=== PATIENT | male | born 1950 | race Caucasian/White ===

== ENCOUNTER 2017-10-30 04:11 | Inpatient (IN) | payer MEDICARE, OTHER, SELFPAY ==
[2017-10-30] VITALS (40 sets, daily range): BP systolic 72–125; BP diastolic 38–60; PULSE 54–100; RESP 10–25; TEMP 35.1–36.8; O2SAT 94–100; BMI 30.2
--- NOTE | 2017-10-30 04:16 | DI.RAD.S_ITS ---
PROCEDURE: XR CHEST 1V INDICATIONS: Pneumonia TECHNIQUE: One view of the chest was acquired. COMPARISON: [facility], CHEST 1 VIEW, 04/22/2017, 13:43. [facility], CHEST 2 VIEW, 02/02/2015, 17:20. [facility], , CHEST 1 VIEW, 08/18/2009, 12:59. FINDINGS: Surgical changes and devices: Spinal fixation devices appear free of disruption abnormal, with interstitial prominence and no focal pneumonia. Inspiratory volume on the right is reduced, previously the case over time. Lungs and pleura: No pleural effusions or pneumothorax. Lungs are clear. Mediastinum: Mediastinal contours appear normal. Heart size is normal. Bones and chest wall: No suspicious bony lesions. Overlying soft tissues appear unremarkable. IMPRESSION: Interstitial prominence, asymmetric elevation of the right hemidiaphragm, no definite focal pulmonary consolidation is found at this time. Quality of visualization but high in the right diaphragm is very limited, however. Lateral view chest may be warranted. Dictated by: True Colunga M.D. on 10/30/2017 at 9:01 Approved by: True Colunga M.D. on 10/30/2017 at 9:02
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
[2017-10-30] MEDS: SODIUM CHLORIDE 0.9% 1065.94 ML IV (04:54)
[2017-10-30] MEDS: levoFLOXacin 750 MG/150 ML PIGGYBACK 100 MG IV (04:55)
[2017-10-30 05:10] LABS: Add Manual Diff / Slide Review NO; Basophils Percent Auto 0.4 % (0-2); Hematocrit 25.3 % (41-53); Hemoglobin 8.1 g/dL (13.5-17.5); Lymphocytes Percent Auto 2.7 % (25-40); Mean Corpuscular HGB Conc 31.9 % (30-36); Mean Corpuscular Hemoglobin 29.2 PG (26-34); Mean Corpuscular Volume 91.4 fL (80-100); Monocytes Percent Auto 4.4 % (3-14); Neutrophils Absolute Auto 20600 /uL (3000-5900); Neutrophils Percent Auto 92.5 % (50-75); Platelet Count 331 X10^3/uL (150-400); Red Blood Cell Count 2.77 X10^6/uL (4.5-5.9); Red Cell Distribution Width 16.3 % (11.6-14.8); White Blood Cell Count 22.3 X10^3/uL (4.5-11.0)
[2017-10-30 05:12] LABS: Lactate (Lactic Acid) 1.6 mmol/L (0.7-2.1)
[2017-10-30 05:21] LABS: BUN Creatinine Ratio 19.2 (6-22); Blood Urea Nitrogen 25 mg/dL (9-20); Calcium 8.6 mg/dL (8.4-10.2); Carbon Dioxide 25 mmol/L (22-32); Chloride 102 mmol/L (98-107); Estimated Glomerular Filt Rate 54.9 mL/min (>60); Glucose 223 mg/dL (80-110); HEMOLYSIS < 15 (0-50); Sodium 140 mmol/L (137-145)
[2017-10-30 05:23] LABS: Potassium 5.1 mmol/L (3.4-5.1)
--- NOTE | 2017-10-30 06:01 | PC.NURSE ---
THE FIRST BAG OF NS WAS PLACED IN PRESSURE BAG AND BOLUSED QUICKLY PER DR BLOCK VERBAL ORDER.THIS WAS DUE TO HIS BLOOD PRESSURE.
[2017-10-30 06:10] LABS: Procalcitonin 0.94 ng/mL (<0.5)
--- NOTE | 2017-10-30 07:03 | PC.ADMIT ---
Addendum entered by Gracia Conde R.N. 10/30/17 07:15: Report to oncoming shift RN, Fadi. Original Note: [address] Admission Note: The patient,Brent Taylor,67 y/o, was given written information regarding hospital policies, unit procedures and contact persons. Patient's smoking status: . Vital Signs - 8 hr 10/30/17 04:15 10/30/17 04:29 10/30/17 05:00 Temperature 98.2 F Pulse Rate 100 H 100 H 97 H Respiratory Rate 18 18 17 Blood Pressure 90/50 L Blood Pressure [Right Arm] 90/50 L 91/49 L Pulse Oximetry 94 96 94 10/30/17 05:12 10/30/17 05:15 10/30/17 06:01 Temperature Pulse Rate 98 H 97 H 84 Respiratory Rate 18 17 18 Blood Pressure Blood Pressure [Right Arm] 91/45 L 82/53 L 80/48 L Pulse Oximetry 94 95 96 10/30/17 06:12 10/30/17 06:36 10/30/17 07:01 Temperature Pulse Rate 80 85 75 Respiratory Rate 20 14 Blood Pressure 111/60 99/40 L Blood Pressure [Right Arm] 87/53 L Pulse Oximetry 98 98 95 Pt arrived to room 104 from ER via stretcher at 0645. Pt is obtunded. VSS, afebrile. Sp02 99% 1LNC. IVF bolus infusing from ER.
[2017-10-30] MEDS: SODIUM CHLORIDE 0.9% 500 ML 1000 ML IV ×2 (08:00→08:24)
[2017-10-30] MEDS: SODIUM CHLORIDE 0.9% 1,000 ML 150 ML IV ×2 (08:57→15:37)
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
[2017-10-30] MEDS: PIPERACILLIN-TAZO 4.5 GM/100 ML FROZ.PIGGY IV ×3 (09:17→20:13)
--- NOTE | 2017-10-30 09:28 | CM.DANOTE ---
Addendum entered by Lary Shaffre LPN 10/30/17 12:02: Introduced self and role. Pt unable to be part of the conversation due to ongoing medical needs/RN and RT working with him. Pt is a 67 year old paraplegic who admitted yesterday to care of hospitalist team. Payer: listed as Medicare and [employer]. Pt also is under care of [facility] and gets his primary care from a physician at the [facility]. [facility] has been alerted to sort out insurance primary billing: ? [facility] Hospitalist Dr. Saldivar is following pt today and case discussed in Care Team morning meeting. Asked it a transfer to the [facility] hospital might be appropriate but he stated he did not think with would be a viable option at this time. Assured pt's [place]: cell: [phone] that the CM/DCP team would be following as POC unfolded to assist with d/c issues and options as these arrive. P: very much in process. Original Note: Discharge Planning/Care Management DCP: assessment: case received and met this morning with pt's spouse. CM Discharge Assessment Start: 10/30/17 09:22 Freq: Status: Active Protocol: Document 10/30/17 09:23 ITV (Rec: 10/30/17 09:28 ITV [id number]) Discharge Planning Assessment History Provided By Family Member Medical Record Has Patient been admitted in last 30 No days? Comment last here in Apr 2017: at that time pt wished to have his stay billed to [facility]. [facility] are alerted to same now by [employer] for followup Household Members spouse Comment spouse has been primary caregiver for her for 7 years Independent with ADL's No Comment elio lifts + all other needed DME at home Review Status In Process Next Review Type Continued Stay Review
[2017-10-30 09:37] LABS: Alanine Aminotransferase 13 IU/L (21-72); Albumin 3.5 g/dL (3.5-5.0); Albumin Globulin Ratio 0.8 (1.0-2.8); Alkaline Phosphatase 86 U/L (38-126); Aspartate Aminotransferase 58 IU/L (17-59); Bilirubin Total 0.4 mg/dL (0.2-1.3); Blood Urea Nitrogen 26 mg/dL (9-20); Calcium 8.6 mg/dL (8.4-10.2); Carbon Dioxide 24 mmol/L (22-32); Chloride 104 mmol/L (98-107); Estimated Glomerular Filt Rate 54.9 mL/min (>60); Globulin 4.3 g/dL (1.7-4.1); Glucose 221 mg/dL (80-110); HEMOLYSIS < 15 (0-50); Magnesium 2.1 mg/dL (1.6-2.3); Phosphorous 5.8 mg/dL (2.3-3.7); Potassium 5.1 mmol/L (3.4-5.1); Sodium 139 mmol/L (137-145); Total Protein 7.8 g/dL (6.3-8.2)
[2017-10-30] MEDS: VANCOMYCIN 1,000 MG/200 ML FROZ.PIGGY 200 MG IV ×2 (09:51→21:46)
[2017-10-30 09:56] LABS: C-Reactive Protein Quant 19.6 mg/dL (<1.0)
[2017-10-30 10:05] LABS: HCO3 ABG 23 mmol/L (23-27); Oxygen Saturation ABG 98 % (95-100); PCO2 ABG 69.6 mmHg (35-45); PO2 ABG 152 mmHg (80-105); TCO2 ABG 25 mmol/L (23-27); pH ABG 7.13 (7.35-7.45)
[2017-10-30 10:06] LABS: Fractionated Inspired Oxygen 3
[2017-10-30] MEDS: ENOXAPARIN 30 MG/0.3 ML SYRINGE SUBCUT (10:06)
--- NOTE | 2017-10-30 10:11 | PC.ADMIT ---
Admission Note: Pt to rm 104 from ED at shift change. Assumed care at 0730. Pt is resting in bed with eyes closed mouth breathing with RR even, shallow and bradypneic with rates 10-14. SPO2 is noted to be 92-93% on 1L NC. Titrated O2 up to 4L NC for SPO2 The patient,Brent Taylor,67 y/o, was given written information regarding hospital policies, unit procedures and contact persons. Patient's smoking status: . Vital Signs - 8 hr 10/30/17 04:15 10/30/17 04:29 10/30/17 05:00 Temperature 98.2 F Pulse Rate 100 H 100 H 97 H Respiratory Rate 18 18 17 Blood Pressure 90/50 L Blood Pressure [Right Arm] 90/50 L 91/49 L Pulse Oximetry 94 96 94 10/30/17 05:12 10/30/17 05:15 10/30/17 06:01 Temperature Pulse Rate 98 H 97 H 84 Respiratory Rate 18 17 18 Blood Pressure Blood Pressure [Right Arm] 91/45 L 82/53 L 80/48 L Pulse Oximetry 94 95 96 10/30/17 06:12 10/30/17 06:36 10/30/17 07:01 Temperature 97.9 F Pulse Rate 80 85 75 Respiratory Rate 20 14 Blood Pressure 111/60 99/40 L Blood Pressure [Right Arm] 87/53 L Pulse Oximetry 98 98 95 10/30/17 07:17 10/30/17 08:12 Temperature Pulse Rate 64 Respiratory Rate 12 Blood Pressure 72/38 L Blood Pressure [Right Arm] Pulse Oximetry 99 100
--- NOTE | 2017-10-30 10:32 | DI.RAD.S_ITS ---
PROCEDURE: XR CHEST 1V INDICATIONS: PICC line placement TECHNIQUE: One view of the chest was acquired. COMPARISON: [facility], [place], XR CHEST 1V, 10/30/2017, 4:20. [facility], CR, CHEST 1 VIEW, 04/22/2017, 13:43. [facility], CR, CHEST 2 VIEW, 02/02/2015, 17:20. FINDINGS: Surgical changes and devices: Prior extensive spine fusion surgery has been performed along the thoracic spine, involving the upper and middle thirds. PICC line from right sided approach has been placed with its tip extending in the distal SVC.. Lungs and pleura: No pleural effusions or pneumothorax. Lungs are abnormal, with interstitial prominence previously present and mild asymmetric elevation of the right hemidiaphragm.. Mediastinum: Mediastinal contours appear normal. Heart size is normal. Bones and chest wall: No suspicious bony lesions. Overlying soft tissues appear unremarkable. IMPRESSION: PICC line placed in normal position. Stable chronic mild interstitial prominence with mild elevation of the right hemidiaphragm also stable over time. Stable postsurgical change along the spine is noted. Dictated by: True Colunga M.D. on 10/30/2017 at 10:58 Approved by: True Colunga M.D. on 10/30/2017 at 10:59
[2017-10-30 10:50] LABS: Adenovirus Not Detected (Not Detect); Bordetella pertussis Not Detected (Not Detect); Chlamydophila pneumoniae Not Detected (Not Detect); Coronavirus 229E Not Detected (Not Detect); Coronavirus HKU1 Not Detected (Not Detect); Coronavirus NL 63 Not Detected (Not Detect); Coronavirus OC43 Not Detected (Not Detect); Human Metapneumovirus Not Detected (Not Detect); Human Rhinovirus/Enterovirus Not Detected (Not Detect); Influenza A Not Detected (Not Detect); Influenza B Not Detected (Not Detect); Mycoplasma pneumoniae Not Detected (Not Detect); Parainfluenza Virus 1 Not Detected (Not Detect); Parainfluenza Virus 2 Not Detected (Not Detect); Parainfluenza Virus 3 Not Detected (Not Detect); Parainfluenza Virus 4 Not Detected (Not Detect); Respiratory Syncytial Virus Not Detected (Not Detect)
[2017-10-30] MEDS: PANTOPRAZOLE 40 MG VIAL IV (10:57)
[2017-10-30 11:07] LABS: Add Manual Diff / Slide Review NO; Basophils Percent Auto 0.1 % (0-2); Hematocrit 23.6 % (41-53); Hemoglobin 7.4 g/dL (13.5-17.5); Lymphocytes Percent Auto 6.5 % (25-40); Mean Corpuscular HGB Conc 31.4 % (30-36); Mean Corpuscular Hemoglobin 29.1 PG (26-34); Mean Corpuscular Volume 92.7 fL (80-100); Neutrophils Absolute Auto 11400 /uL (3000-5900); Neutrophils Percent Auto 88.4 % (50-75); Platelet Count 232 X10^3/uL (150-400); Red Blood Cell Count 2.55 X10^6/uL (4.5-5.9); Red Cell Distribution Width 16.5 % (11.6-14.8); White Blood Cell Count 12.9 X10^3/uL (4.5-11.0)
[2017-10-30 11:18] LABS: Lactate (Lactic Acid) 1.1 mmol/L (0.7-2.1)
--- NOTE | 2017-10-30 11:56 | PC.NURSE ---
Addendum entered by Fadi Lorenz R.N. 10/30/17 14:42: Obtaining temperature via rectal probe for continuous monitoring. Due to limitation by [employer], unable to enter temperatures. Pt temp initally 93.9 at 0800. Temp has increased to 95.5 rectally over the course of the day and with use of nilson hugger. Original Note: Addendum entered by Fadi Lorenz R.N. 10/30/17 13:32: Pt placed on bipap 1330 per MD order. Asked if she could bring pt's own cpap from home. She agrees. Original Note: Assumed care of pt 0715. Pt noted with pallor, hypotension, bradypnea. Lungs course throughout. Initially on 1L NC by mouth and needing upward titration to 4LPM to keep SPO2 greater than 93%. Unable to obtain temp axillary, oral, or temporal. Placed rectal probe for continuous monitoring. 0800 noted BP to be 77/36 (51) HR 67 RR 11 and rectal temp 93.9. Pt grimaces to noxious stimuli but does not open eyes or follow commands. Called to hospitalist and rec'd orders for 2 add'l 500 ML NS Boluses and then NS @ 150 ML/HR. Attempted to place PIV x2 but unsuccessful. Covered pt with heated blankets. is at bedside. She states that pt historically has temps of 94.0 after acute infections. Reported to Dr. Campos on rounds at 0830. Reported VS, labs, IV access, IVFs, chronic pope, assessment findings. Orders received and implemented. updated and educated to orders. 0900 RT to bedside obtaining ABG. ABG results called to Dr. Campos by this nurse. Orders received to place pt on bipap and obtain ABG in 2 hours. RT suctioned pt with minimal secretions and resp panel obtained. Pt is waking up. Soft spoken clear speech. States he is at the hospital in [place], unsure of date/time, states year 2018. Oriented to situation. DI nurse in to place PICC line. CXR done confirming placement. Pt states he is very claustrophobic and would not tolerate bipap. Pt is progressively more awake/alert and conversing with family and friends. AO x3. Bipap not placed. RT obtained ABG and RT states will notify Dr. Campos of results.
[2017-10-30 12:05] LABS: pH ABG 7.27 (7.35-7.45)
[2017-10-30 12:07] LABS: HCO3 ABG 23 mmol/L (23-27); Oxygen Saturation ABG 96 % (95-100); PCO2 ABG 49.5 mmHg (35-45); PO2 ABG 95 mmHg (80-105); TCO2 ABG 24 mmol/L (23-27)
[2017-10-30 12:26] LABS: Fractionated Inspired Oxygen 1
[2017-10-30] MEDS: HYDROCORTISONE 100 MG/2 ML VIAL IV (12:33)
[2017-10-30] MEDS: INSULIN ASPART 100 UNIT/ML INSULN PEN SUBCUT ×2 (12:33→18:36)
--- NOTE | 2017-10-30 18:05 | PC.NURSE ---
Addendum entered by Monalisa Sheldon R.N. 10/30/17 21:06: 2100 - Pt assist pt to use cough assist. Moderate amount of cream color sputum. Assist pt with oral care. Pt declines being repositioned at this time. Original Note: Addendum entered by Monalisa Sheldon R.N. 10/30/17 19:58: 1930 - Transfer to pressure relief bed. Pt awake, alert, able to participate in care. Temp 98.2, rectal, declines to have bearhugger removed. Set to low. potline monitor, SR/SB 1 degree AVB. Pt assist with cough assist machine. Jorgensen sputum, anterior coarse LS persist. 98% on 2.5L. Veloz draining yellow urine with sedament. Call light in reach. Original Note: Addendum entered by Monalisa Sheldon R.N. 10/30/17 18:25: 1810 - Pt requesting to be taken off Bi-pap, Placed on 3L NC. Pt assisted pt with home cough assist machine, Sputum sample obtained, sent to lab per MD order. Original Note: Pt able to indicate discomfort. Repositioned. Confirmed with Real Estate Subagent that special mattress has been ordered. Awaiting delivery. Pt able to nod head yes and no to questions. Pulled arms out of the bearhugger. Indicated that he would like it turned down, but not off. Turned to low setting. Rectal temp 97.7. Skin warm to touch. Hypotension monitor. MAP continues to be >65. NS @ 150cc/hr. 50cc of urine out this hour. Supportive at bedside. Monitor.
[2017-10-31] VITALS (20 sets, daily range): BP systolic 119–155; BP diastolic 54–111; PULSE 43–61; RESP 11–16; TEMP 36.7–37; O2SAT 95–100
[2017-10-31] MEDS: HYDROCORTISONE 100 MG/2 ML VIAL IV (00:03)
[2017-10-31] MEDS: SODIUM CHLORIDE 0.9% 1,000 ML 150 ML IV ×2 (00:03→07:17)
[2017-10-31] MEDS: PIPERACILLIN-TAZO 4.5 GM/100 ML FROZ.PIGGY IV ×4 (02:26→20:15)
[2017-10-31 05:28] LABS: Add Manual Diff / Slide Review NO; Basophils Percent Auto 0.1 % (0-2); Hematocrit 23.8 % (41-53); Hemoglobin 7.7 g/dL (13.5-17.5); Lymphocytes Percent Auto 6.5 % (25-40); Mean Corpuscular HGB Conc 32.1 % (30-36); Mean Corpuscular Hemoglobin 29.1 PG (26-34); Mean Corpuscular Volume 90.6 fL (80-100); Monocytes Percent Auto 3.2 % (3-14); Neutrophils Absolute Auto 10700 /uL (3000-5900); Neutrophils Percent Auto 90.2 % (50-75); Platelet Count 233 X10^3/uL (150-400); Red Blood Cell Count 2.63 X10^6/uL (4.5-5.9); Red Cell Distribution Width 16.3 % (11.6-14.8); White Blood Cell Count 11.9 X10^3/uL (4.5-11.0)
[2017-10-31 05:32] LABS: Alanine Aminotransferase 11 IU/L (21-72); Albumin 2.9 g/dL (3.5-5.0); Albumin Globulin Ratio 0.8 (1.0-2.8); Alkaline Phosphatase 69 U/L (38-126); Aspartate Aminotransferase 22 IU/L (17-59); BUN Creatinine Ratio 20.9 (6-22); Bilirubin Total 0.2 mg/dL (0.2-1.3); Blood Urea Nitrogen 23 mg/dL (9-20); Calcium 8.3 mg/dL (8.4-10.2); Carbon Dioxide 23 mmol/L (22-32); Chloride 109 mmol/L (98-107); Estimated Glomerular Filt Rate > 60.0 mL/min (>60); Globulin 3.8 g/dL (1.7-4.1); Glucose 112 mg/dL (80-110); HEMOLYSIS < 15 (0-50); Magnesium 1.9 mg/dL (1.6-2.3); Potassium 4.5 mmol/L (3.4-5.1); Sodium 141 mmol/L (137-145); Total Protein 6.7 g/dL (6.3-8.2)
[2017-10-31 05:43] LABS: Troponin I 0.024 ng/mL (0.01-0.034)
--- NOTE | 2017-10-31 06:36 | PC.NURSE ---
Patient slept throughout night, rouses during care, answers questions and participates. In rotating bed, BareHugger on, Rectal temp 98.1. SB, rate 40s-50s, BP stable, see vital trends. SpO2 >95% on 2.5L NC. Breath sounds coarse. Total UOP 275ml, urine is yellow with sediment. CBGs 101 and 112, no coverage indicated. NS at 150ml/hr. in room, also rested.
[2017-10-31] MEDS: ALBUTEROL/IPRATROPIUM 3 ML AMPUL INH ×2 (08:45→16:25)
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
[2017-10-31] MEDS: PANTOPRAZOLE 40 MG VIAL IV (09:00)
--- NOTE | 2017-10-31 09:06 | CM.DPC ---
DCP Cont: Introduced self and role to , as patient was sleeping. Offered any support that she might need. She is primary caregiver. Patient remains in ICU at this time, due to medical necessity P: Plan in process, continue to communicate with regarding support systems when discharged. Shawna Rand RN/Graphic Production Artist
[2017-10-31] MEDS: ENOXAPARIN 40 MG/0.4 ML SYRINGE SUBCUT (09:51)
[2017-10-31] MEDS: VANCOMYCIN 1,000 MG/200 ML FROZ.PIGGY 200 MG IV ×2 (09:56→22:38)
[2017-10-31] MEDS: HYDROCORTISONE 100 MG/2 ML VIAL 50 MG IV (12:15)
[2017-10-31 12:24] LABS: Folate 12.4 ng/mL (2.76-20.0); Vitamin B12 454 pg/mL (239-931)
--- NOTE | 2017-10-31 14:26 | PC.NURSE ---
pt transferred to room 224, report given to Sumaya NYE, patient and spouse state they have all personal belongings with them, pt VSS, please see charting for full assessment
--- NOTE | 2017-10-31 14:34 | PC.NURSE ---
TSF - brought to room 224 via special bed, pt is alert, denies discomfort, 02 sat 3l 100%, decr to 2l now with sat remaining upper 90's, pope w/small qty urine in tubing, hr 48, wearing own heel protectors, per pt and spouse, prefer to bear hugger for comfort, delivered from icu and connected, setting 33C, belongings and own wc are in room.
[2017-10-31] MEDS: INSULIN ASPART 100 UNIT/ML INSULN PEN SUBCUT ×2 (17:09→21:54)
[2017-10-31] MEDS: BISACODYL 10 MG SUPP PR (20:01)
[2017-10-31] MEDS: SODIUM CHLORIDE 0.9% 250 ML 21 ML IV ×2 (20:17→22:42)
[2017-10-31] MEDS: VANCOMYCIN TROUGH 1 REQUEST MISC (21:32)
[2017-10-31] MEDS: INSULIN GLARGINE 100 UNIT/ML 3ML PEN 30 UNIT SUBCUT (21:54)
[2017-10-31] MEDS: clonazePAM 0.5 MG TABLET PO (22:01)
[2017-10-31] MEDS: TRAZODONE 100 MG TABLET PO (22:01)
[2017-10-31] MEDS: MORPHINE ER 30 MG TABLET PO (22:01)
[2017-10-31 22:21] LABS: Vancomycin Trough 17.4 ug/mL (10-20)
[2017-11-01] VITALS (12 sets, daily range): BP systolic 136–145; BP diastolic 54–70; PULSE 40–68; RESP 13–19; TEMP 36.2–36.8; O2SAT 92–100
--- NOTE | 2017-11-01 | DI.RAD.S_ITS ---
PROCEDURE: XR CHEST 1V INDICATIONS: f/u on PNA TECHNIQUE: One view of the chest was acquired. COMPARISON: [facility], CR, XR CHEST 1V, 10/30/2017, 10:43. FINDINGS: Surgical changes and devices: Right upper extremity PIC line redemonstrated with the tip in the superior vena cava. Postsurgical changes are again noted in the upper thoracic spine. Lungs and pleura: There are persistent small bilateral pleural effusions. Persistent bilateral airspace opacities are redemonstrated in the lung bases with interval increase on the right suggestive of consolidation versus atelectasis. There is mild pulmonary edema. Mediastinum: Mediastinal contours appear unchanged. Heart size is normal. Bones and chest wall: No suspicious bony lesions. Overlying soft tissues appear unremarkable. IMPRESSION: 1. Increased right basilar consolidation or atelectasis. 2. Persistent small bilateral pleural effusions with mild pulmonary edema. Dictated by: Jake Romero M.D. on 11/01/2017 at 11:44 Approved by: Jake Romero M.D. on 11/01/2017 at 11:46
--- NOTE | 2017-11-01 00:16 | PC.NURSE ---
Spot Remover Note: 0000: Awake, resting in bed with HOB elevated. Alert, oriented X3. Juanito Mata on per his request. Veloz catheter patent, urine is clear jena. PICC in place in rt upper arm. resting at bedside.
[2017-11-01] MEDS: HYDROCORTISONE 100 MG/2 ML VIAL 50 MG IV (00:29)
[2017-11-01] MEDS: PIPERACILLIN-TAZO 4.5 GM/100 ML FROZ.PIGGY IV ×4 (02:15→21:45)
[2017-11-01] MEDS: ALBUTEROL/IPRATROPIUM 3 ML AMPUL INH ×3 (05:32→19:36)
[2017-11-01] MEDS: MORPHINE ER 30 MG TABLET PO ×3 (05:59→21:46)
[2017-11-01] MEDS: SODIUM CHLORIDE 0.9% FLUSH 10 ML IV ×3 (06:00→21:46)
[2017-11-01] MEDS: INSULIN ASPART 100 UNIT/ML INSULN PEN SUBCUT ×2 (08:26→12:19)
[2017-11-01 09:04] LABS: Add Manual Diff / Slide Review NO; Basophils Percent Auto 0.2 % (0-2); Eosinophils Percent Auto 0.1 % (2-4); Hematocrit 23.1 % (41-53); Hemoglobin 7.6 g/dL (13.5-17.5); Lymphocytes Percent Auto 9.6 % (25-40); Mean Corpuscular HGB Conc 32.9 % (30-36); Mean Corpuscular Hemoglobin 29.5 PG (26-34); Mean Corpuscular Volume 89.7 fL (80-100); Monocytes Percent Auto 5.5 % (3-14); Neutrophils Absolute Auto 5800 /uL (3000-5900); Neutrophils Percent Auto 84.6 % (50-75); Platelet Count 226 X10^3/uL (150-400); Red Blood Cell Count 2.57 X10^6/uL (4.5-5.9); Red Cell Distribution Width 16.1 % (11.6-14.8); White Blood Cell Count 6.8 X10^3/uL (4.5-11.0)
[2017-11-01 09:10] LABS: Enterococcus species Not Detected (Not Detect); Listeria monocytogenes Not Detected (Not Detect); Methicillin-resistant gene Not Detected (Not Detect); Staphylococcus species Not Detected (Not Detect); Streptococcus species Not Detected (Not Detect); Vancomycin-rest genes A/B Not Detected (Not Detect)
[2017-11-01 09:11] LABS: Acinetobacter baumannii Not Detected (Not Detect); Candida albicans Not Detected (Not Detect); Candida glabrata Not Detected (Not Detect); Candida krusei Not Detected (Not Detect); Candida parapsilosis Not Detected (Not Detect); Candida tropicalis Not Detected (Not Detect); E. coli Not Detected (Not Detect); Enterobacter cloacae complex Not Detected (Not Detect); Enterobacteriaceae species Not Detected (Not Detect); Haemophilus influenzae Not Detected (Not Detect); KPC (carbapenem-resist gene) Not Detected (Not Detect); Neisseria meningitidis Not Detected (Not Detect); Proteus species Not Detected (Not Detect); Pseudomonas aeruginosa Not Detected (Not Detect); Serratia marcescens Not Detected (Not Detect); Streptococcus agalactiae (Gr B Not Detected (Not Detect); Streptococcus pneumonia Not Detected (Not Detect); Streptococcus pyogenes (Gr A) Not Detected (Not Detect)
[2017-11-01] MEDS: ENOXAPARIN 40 MG/0.4 ML SYRINGE SUBCUT (09:17)
[2017-11-01 09:23] LABS: Alanine Aminotransferase 66 IU/L (21-72); Albumin Globulin Ratio 0.8 (1.0-2.8); Alkaline Phosphatase 166 U/L (38-126); Aspartate Aminotransferase 119 IU/L (17-59); BUN Creatinine Ratio 21.8 (6-22); Bilirubin Total 0.4 mg/dL (0.2-1.3); Blood Urea Nitrogen 24 mg/dL (9-20); Calcium 8.1 mg/dL (8.4-10.2); Carbon Dioxide 24 mmol/L (22-32); Chloride 105 mmol/L (98-107); Estimated Glomerular Filt Rate > 60.0 mL/min (>60); Globulin 3.7 g/dL (1.7-4.1); Glucose 162 mg/dL (80-110); HEMOLYSIS < 15 (0-50); Magnesium 2.1 mg/dL (1.6-2.3); Potassium 3.7 mmol/L (3.4-5.1); Sodium 140 mmol/L (137-145); Total Protein 6.7 g/dL (6.3-8.2)
[2017-11-01] MEDS: PANTOPRAZOLE 40 MG VIAL IV (09:28)
[2017-11-01] MEDS: VANCOMYCIN 1,000 MG/200 ML FROZ.PIGGY 200 MG IV ×2 (10:05→22:41)
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
[2017-11-01] MEDS: INSULIN ASPART 100 UNIT/ML INSULN PEN 12 UNIT SUBCUT (12:19)
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
[2017-11-01] MEDS: clonazePAM 0.5 MG TABLET 0.25 MG PO (21:45)
[2017-11-01] MEDS: TRAZODONE 50 MG TABLET PO (21:46)
--- NOTE | 2017-11-01 22:43 | PC.NURSE ---
Nilson is Ox3, VS stable. doing catheter care tonight, reported white/yellow mucous-like discharge from urethral meatus. actively repositioning patient tonight. Pt rates pain 7/10 at bedtime, scheduled Morphine given. CBG prior to dinner was 75, no coverage or prandial dose of insulin given, per concern that the prandial dose might be too much. Pt able to eat 1/2 of meal. At bedtime CBG 121, after discussing cbg result and lantus order, patient and spouse refused me to give lantus. HS snack given. PICC drsg changed per protocol, by Alicia li RN. IV antibiotics infusing with no difficulty. Pt reminded to call nurse if has any needs or concerns.
--- NOTE | 2017-11-01 22:48 | RT ---
PT PLACED ON HOSPITAL CPAP PT USES CPAP AT HOME FOR TIESHA AND DOES NOT HAVE HOME UNIT HERE. LARGE FULL-FACE MASK APPEARS WITH GOOD FIT. O2 SAT ON RA NOTED AT 98%.
[2017-11-02] MEDS: PIPERACILLIN-TAZO 4.5 GM/100 ML FROZ.PIGGY IV ×2 (02:01→08:50)
--- NOTE | 2017-11-02 04:06 | PC.NURSE ---
Collection Teller Note: Awake, alert/oriented X3. Vital signs stable. Pt using Juanito Hugger for comfort. Veloz catheter patent, urine is clear jena. CBG recheck was 102. Snack given per his request. at bedside.
[2017-11-02] MEDS: ALBUTEROL/IPRATROPIUM 3 ML AMPUL INH (05:47)
[2017-11-02 05:49] VITALS: PULSE 61; RESP 18; O2SAT 96
[2017-11-02] MEDS: MORPHINE ER 30 MG TABLET PO (06:27)
[2017-11-02 06:40] VITALS: BP 147/82; PULSE 79; RESP 16; TEMP 36.9; O2SAT 92
[2017-11-02 07:31] LABS: Hemoglobin 7.7 g/dL (13.5-17.5); Mean Corpuscular HGB Conc 33.3 % (30-36); Mean Corpuscular Hemoglobin 29.9 PG (26-34); Mean Corpuscular Volume 89.8 fL (80-100); Platelet Count 247 X10^3/uL (150-400); Red Blood Cell Count 2.56 X10^6/uL (4.5-5.9); Red Cell Distribution Width 16.4 % (11.6-14.8)
[2017-11-02 07:34] LABS: Add Manual Diff / Slide Review YES
[2017-11-02 07:36] VITALS: BP 136/53; PULSE 68; RESP 16; TEMP 36.8; O2SAT 97
[2017-11-02 07:37] LABS: BUN Creatinine Ratio 18.3 (6-22); Blood Urea Nitrogen 22 mg/dL (9-20); Calcium 8.2 mg/dL (8.4-10.2); Carbon Dioxide 24 mmol/L (22-32); Chloride 107 mmol/L (98-107); Estimated Glomerular Filt Rate > 60.0 mL/min (>60); Glucose 103 mg/dL (80-110); HEMOLYSIS < 15 (0-50); Potassium 3.4 mmol/L (3.4-5.1); Sodium 141 mmol/L (137-145)
[2017-11-02 08:12] LABS: Neutrophils Absolute Manual 3990 /uL (3000-5900); Nucleated Red Blood Cells 1 #/Diff; Total Cells Counted 100
[2017-11-02 08:13] LABS: Anisocytosis 1+; Hypochromasia 1+
[2017-11-02 08:14] LABS: Smudge Cells 1+
[2017-11-02] MEDS: ENOXAPARIN 40 MG/0.4 ML SYRINGE SUBCUT (08:47)
[2017-11-02] MEDS: SODIUM CHLORIDE 0.9% FLUSH 10 ML IV (08:49)
[2017-11-02] MEDS: PANTOPRAZOLE 40 MG VIAL IV (08:49)
[2017-11-02] MEDS: VANCOMYCIN 1,000 MG/200 ML FROZ.PIGGY 200 MG IV (10:23)
[2017-11-02 11:35] VITALS: BP 148/63; PULSE 61; RESP 16; TEMP 36.5; O2SAT 98
--- NOTE | 2017-11-02 12:18 | PC.NURSE ---
Nilson is to be disch. today to home with caregiver with Rx for oral antibiotics. Will d/c PICC line. Anticipate d/c this PM.
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
--- NOTE | 2017-11-02 14:10 | PC.NURSE ---
Nilson was disch. in stable condition via own mechanized wheelchair at 1310. Disch. to home in care of . verbalizes understanding of all disch. teaching and changes written for alteration in home medication management.
--- NOTE | 2017-11-02 16:05 | CM.DPC ---
DCP: continued: case was again received and spoke with Dr. Campos this morning. He noted pt was well cared for at home by his spouse and that this remained the best d/c disposition for him. At time of the discussion he was not sure if pt would need IV antibiotics at d/c or if could go on orals. A check in now shows that pt was ok'd for d/c on oral levaquin and did leave with his early this afternnoon via his motorized w/c.
== END 2017-11-02 13:10 | disposition home or self-care (01) | DRG 871 ==
LOC: ED 05:10 → ICU 06:29 → AC 10-31 14:24
PROVIDERS: Hospitalist; Admitting Provider Internal Medicine; Emergency Provider Emergency Medicine; Visit Provider Internal Medicine
DX: A41.9 Sepsis, unspecified organism (principal); G93.41 Metabolic encephalopathy; J96.01 Acute respiratory failure with hypoxia; R65.21 Severe sepsis with septic shock; J69.0 Pneumonitis due to inhalation of food and vomit; R40.2222 Coma scale, best verbal response, incomprehensible words, at arrival to emergency department; N17.9 Acute kidney failure, unspecified; G82.20 Paraplegia, unspecified; T14.8XXS Other injury of unspecified body region, sequela; Z99.3 Dependence on wheelchair; E11.9 Type 2 diabetes mellitus without complications; Z79.4 Long term (current) use of insulin; N31.2 Flaccid neuropathic bladder, not elsewhere classified; R40.2362 Coma scale, best motor response, obeys commands, at arrival to emergency department; R40.2132 Coma scale, eyes open, to sound, at arrival to emergency department; G47.33 Obstructive sleep apnea (adult) (pediatric)
CPT/HCPCS: 36415; 36569; 36591; 36592; 36600; 71045; 80048; 80053; 80202; 82607; 82746; 82805; 82962; 83036; 83605; 83735; 83880; 84100; 84145; 84443; 84484; 85025; 86140; 87040; 87070; 87077; 87086; 87150; 87186; 87205; 87633; 87797; 92610; 94640; 94660; 94760; 94762; 94799; 96365; 96366; 99284; 99285; 99291; C9113; J1650; J1720; J1956; J2543; J3370

== ENCOUNTER 2017-11-13 14:43 | Emergency (ER) | payer MEDICARE, OTHER, SELFPAY ==
[2017-10-30 11:13] VITALS: BMI 30.2
[2017-10-30 17:30] VITALS: PULSE 64; RESP 25; O2SAT 100
[2017-11-13] VITALS (8 sets, daily range): BP systolic 72–116; BP diastolic 44–82; PULSE 59–75; RESP 10–18; TEMP 36.2–36.5; O2SAT 91–98; BMI 31.2
--- NOTE | 2017-11-13 15:01 | DI.RAD.S_ITS ---
PROCEDURE: XR CHEST 1V INDICATIONS: suspected sepsis TECHNIQUE: One view of the chest was acquired. COMPARISON: [facility], CR, XR CHEST 1V, 11/01/2017, 8:22. [facility], CR, XR CHEST 1V, 10/30/2017, 10:43. [facility], CR, XR CHEST 1V, 10/30/2017, 4:20. FINDINGS: Surgical changes and devices: Extensive prior thoracic spine fixation stable over time. Lungs and pleura: No pleural effusions or pneumothorax. Lungs are clear considering reduced inspiratory volume. Mediastinum: Mediastinal contours appear normal. Heart size is normal. Bones and chest wall: No suspicious bony lesions. Overlying soft tissues appear unremarkable. IMPRESSION: Reduced inspiratory volume, source of sepsis is not seen. Extensive spine fixation devices show no evidence of loosening or disruption. Dictated by: True Colunga M.D. on 11/13/2017 at 16:30 Approved by: True Colunga M.D. on 11/13/2017 at 16:31
[2017-11-13] MEDS: SODIUM CHLORIDE 0.9% 1,000 ML 1000 ML IV (15:03)
--- NOTE | 2017-11-13 15:29 | DI.CT.S_ITS ---
PROCEDURE: CT HEAD/BRAIN WO CON INDICATIONS: decreasing mental status TECHNIQUE: Noncontrast 4.5 mm thick angled axial sections acquired from the foramen magnum to the vertex, with coronal and sagittal reformats. For radiation dose reduction, the following was used: automated exposure control, adjustment of mA and/or kV according to patient size. COMPARISON: [facility], CT, HEAD WITHOUT CONTRAST, 08/18/2009, 13:34. FINDINGS: Image quality: Excellent. CSF spaces: Basal cisterns are patent. No extra-axial fluid collections. Ventricles are unchanged in size and shape. Brain: No intracranial hemorrhage, mass, or mass effect. Britt-white matter interface is preserved. Skull and face: Calvarium and visualized facial bones are intact, without suspicious lesions. Sinuses: Visualized sinuses and mastoids are clear. IMPRESSION: 1. No acute intracranial abnormality. Dictated by: Jake Romero M.D. on 11/13/2017 at 15:50 Approved by: Jake Romero M.D. on 11/13/2017 at 15:51
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
--- NOTE | 2017-11-13 15:41 | PC.NURSE ---
IV infusion documented but had occurred with Soraya while I was on my lunch break
[2017-11-13 16:22] LABS: RBC Urine 5-10/HPF (0-5/HPF); WBC Urine >100/HPF (0-5/HPF)
[2017-11-13 16:23] LABS: Bacteria Urine Moderate (10-30); Culture Indicated Urine Specimen Cultured; Squamous Epithelial Cell Urine 0-1 /HPF
--- NOTE | 2017-11-13 16:38 | PC.NURSE ---
Second IV established in L AC on 3rd attempt. NS infusing into line without sign of irritation or infiltration
[2017-11-13 17:53] LABS: INR 1.2 (0.9-1.3); Prothrombin Time 13.4 SECONDS (10.1-12.7)
[2017-11-13 17:54] LABS: Add Manual Diff / Slide Review NO; Basophils Percent Auto 0.5 % (0-2); Eosinophils Percent Auto 2.5 % (2-4); Hematocrit 23.7 % (41-53); Hemoglobin 7.7 g/dL (13.5-17.5); Lymphocytes Percent Auto 25.2 % (25-40); Mean Corpuscular HGB Conc 32.6 % (30-36); Mean Corpuscular Hemoglobin 29.7 PG (26-34); Monocytes Percent Auto 9.4 % (3-14); Neutrophils Absolute Auto 5300 /uL (3000-5900); Neutrophils Percent Auto 62.4 % (50-75); Platelet Count 225 X10^3/uL (150-400); Red Blood Cell Count 2.61 X10^6/uL (4.5-5.9); Red Cell Distribution Width 16.5 % (11.6-14.8); White Blood Cell Count 8.5 X10^3/uL (4.5-11.0)
[2017-11-13 17:55] LABS: PTT Partial Thromboplastin Tim 25 SECONDS (26.4-36.2)
[2017-11-13 18:02] LABS: Alanine Aminotransferase 17 IU/L (21-72); Albumin 3.1 g/dL (3.5-5.0); Albumin Globulin Ratio 0.8 (1.0-2.8); Alkaline Phosphatase 76 U/L (38-126); Aspartate Aminotransferase 16 IU/L (17-59); BUN Creatinine Ratio 14.5 (6-22); Bilirubin Total 0.5 mg/dL (0.2-1.3); Blood Urea Nitrogen 16 mg/dL (9-20); Calcium 8.4 mg/dL (8.4-10.2); Carbon Dioxide 36 mmol/L (22-32); Chloride 100 mmol/L (98-107); Estimated Glomerular Filt Rate > 60.0 mL/min (>60); Globulin 3.7 g/dL (1.7-4.1); Glucose 93 mg/dL (80-110); HEMOLYSIS < 15 (0-50); Lactate (Lactic Acid) 0.8 mmol/L (0.7-2.1); Lipase 20 U/L (23-300); Potassium 4.3 mmol/L (3.4-5.1); Sodium 141 mmol/L (137-145); Total Protein 6.8 g/dL (6.3-8.2)
[2017-11-13 18:18] LABS: Procalcitonin 0.31 ng/mL (<0.5)
--- NOTE | 2017-11-13 19:05 | PC.NURSE ---
1900 RT at [facility] for MADHAV
[2017-11-13 20:02] LABS: HCO3 ABG 32 mmol/L (23-27); Oxygen Saturation ABG 92 % (95-100); PCO2 ABG 60.7 mmHg (35-45); PO2 ABG 69 mmHg (80-105); TCO2 ABG 34 mmol/L (23-27); pH ABG 7.34 (7.35-7.45)
[2017-11-13 20:03] LABS: Fractionated Inspired Oxygen 0.21
--- NOTE | 2017-11-13 20:58 | PC.NURSE ---
Pt and spouse state he feels better and is more at is mental status baseline. However, after his initial fluid bolus, his blood pressure has steadily declined to 98 systolic. Notified provider. Hung 500 mL bolus.
[2017-11-13] MEDS: SODIUM CHLORIDE 0.9% 500 ML 1000 ML IV (21:04)
--- NOTE | 2017-11-15 14:40 | PC.NURSE ---
called earlier for positive urine culture, see call back log. at that time reported pt was asyptomatic. just called back and reported by the time i make an appointment for my to see the doctor, he will want to do another urine and then i will have to pay for the visit. i will then have to wait for a prescription until the culture comes back. I want you to call that prescription for the antibiotic that you mentioned to Yary Johnson. Hagerman. prescription called in for pt. for Bactrim DS i tab bid x 7days disp 14 tabs.
== END 2017-11-13 21:39 | disposition home or self-care (01) ==
PROVIDERS: Emergency Provider Emergency Medicine
DX: E86.0 Dehydration (principal); I95.9 Hypotension, unspecified; R41.82 Altered mental status, unspecified
CPT/HCPCS: 36600; 70450; 71045; 80053; 81003; 81015; 82805; 83605; 83690; 84145; 85025; 85610; 85730; 87040; 87077; 87086; 87186; 93041; 96360; 99285

== ENCOUNTER 2018-02-20 21:56 | Inpatient (IN) | payer MEDICARE, OTHER, SELFPAY ==
[2017-10-30 11:13] VITALS: BMI 30.2
[2017-10-30 17:30] VITALS: PULSE 64; RESP 25; O2SAT 100
[2018-02-20 22:09] VITALS: BP 136/75; PULSE 103; RESP 26; TEMP 39.3; O2SAT 95; BMI 32.5
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
--- NOTE | 2018-02-20 22:12 | DI.RAD.S_ITS ---
PROCEDURE: XR CHEST 1V INDICATIONS: Fever, eval for pneumonia TECHNIQUE: One view of the chest was acquired. COMPARISON: [facility], CR, XR CHEST 1V, 11/13/2017, 15:47. FINDINGS: Surgical changes and devices: Postsurgical changes are redemonstrated within the posterior thoracic spine. Lungs and pleura: There are increased left retrocardiac basilar opacities consistent with atelectasis or consolidation. Persistent linear right basilar opacities are redemonstrated likely representing atelectasis or scarring. No definite pleural effusions or pneumothorax. Mediastinum: Mediastinal contours appear unchanged. Heart size is normal. Bones and chest wall: No suspicious bony lesions. Overlying soft tissues appear unremarkable. IMPRESSION: 1. Left retrocardiac basilar opacities may represent consolidation and pneumonia given clinical history but the differential includes atelectasis. Dictated by: Jake Romero M.D. on 02/21/2018 at 11:13 Approved by: Jake Romero M.D. on 02/21/2018 at 11:14
[2018-02-20 22:26] VITALS: TEMP 39.3
[2018-02-20] MEDS: ACETAMINOPHEN 325 MG TABLET 650 MG PO (22:26)
[2018-02-20 22:27] VITALS: BP 136/75; PULSE 98; RESP 16; O2SAT 95
[2018-02-20] MEDS: SODIUM CHLORIDE 0.9% 1120 ML IV (22:27)
[2018-02-20 22:49] LABS: Add Manual Diff / Slide Review NO; Basophils Percent Auto 0.2 % (0-2); Eosinophils Percent Auto 0.3 % (2-4); Hematocrit 26.5 % (41-53); Hemoglobin 8.6 g/dL (13.5-17.5); Lymphocytes Percent Auto 6.2 % (25-40); Mean Corpuscular HGB Conc 32.2 % (30-36); Mean Corpuscular Hemoglobin 29.4 PG (26-34); Mean Corpuscular Volume 91.4 fL (80-100); Monocytes Percent Auto 6.5 % (3-14); Neutrophils Absolute Auto 14700 /uL (3000-5900); Neutrophils Percent Auto 86.8 % (50-75); Platelet Count 257 X10^3/uL (150-400); Red Blood Cell Count 2.91 X10^6/uL (4.5-5.9); Red Cell Distribution Width 17.8 % (11.6-14.8); White Blood Cell Count 16.9 X10^3/uL (4.5-11.0)
[2018-02-20 22:56] LABS: Alanine Aminotransferase 10 IU/L (21-72); Albumin 3.5 g/dL (3.5-5.0); Albumin Globulin Ratio 0.8 (1.0-2.8); Alkaline Phosphatase 111 U/L (38-126); Aspartate Aminotransferase 25 IU/L (17-59); BUN Creatinine Ratio 20.9 (6-22); Bilirubin Total 0.5 mg/dL (0.2-1.3); Blood Urea Nitrogen 23 mg/dL (9-20); Calcium 8.4 mg/dL (8.4-10.2); Carbon Dioxide 23 mmol/L (22-32); Chloride 102 mmol/L (98-107); Estimated Glomerular Filt Rate > 60.0 mL/min (>60); Globulin 4.3 g/dL (1.7-4.1); Glucose 222 mg/dL (80-110); Lipase 12 U/L (23-300); Sodium 135 mmol/L (137-145); Total Protein 7.8 g/dL (6.3-8.2)
[2018-02-20 22:57] LABS: Ictotest Urine Negative (Negative); RBC Urine 1-5/HPF (0-5/HPF)
[2018-02-20 22:58] LABS: Bacteria Urine Many (>30); Granular Casts Urine 1-5/LPF; WBC Urine >100/HPF (0-5/HPF)
[2018-02-20 22:59] LABS: Culture Indicated Urine Specimen Cultured; Urine Comments Microscopic Normal
[2018-02-20 23:00] LABS: HEMOLYSIS 60 (0-50)
[2018-02-20 23:03] LABS: Ketones (Beta-Hydroxybutyrate) 0.21 mmol/L (<0.27)
[2018-02-20] MEDS: TRIMETH/SULFA 160/800 (DS) TABLET 1 TAB PO (23:04)
[2018-02-20] MEDS: LORazepam 2 MG/ML SYRINGE 1 MG IV (23:07)
[2018-02-20] MEDS: levoFLOXacin 750 MG/150 ML PIGGYBACK 100 MG IV (23:07)
[2018-02-20 23:12] VITALS: BP 117/41; PULSE 103; RESP 21; TEMP 38.3; O2SAT 95
[2018-02-20 23:22] VITALS: TEMP 38.3
--- NOTE | 2018-02-20 23:23 | PC.NURSE ---
Pt having visual hallucinations. Keeps scratching at his blanket, stating he sees a number 5 there. Per his spouse, he was also having hallucinations prior to coming to ED. He thought he was in his friend's garage. He became agitated due to the hallucinations. Provider notified and Ativan 1mg was administered, per order.
[2018-02-21] VITALS (12 sets, daily range): BP systolic 94–129; BP diastolic 38–83; PULSE 67–92; RESP 15–18; TEMP 36.8–38.4; O2SAT 93–98; BMI 33.4
[2018-02-21 01:45] LABS: Influenza A and B by PCR Rapid Negative (Negative)
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
[2018-02-21 06:13] LABS: Add Manual Diff / Slide Review NO; Basophils Percent Auto 0.3 % (0-2); Eosinophils Percent Auto 0.3 % (2-4); Hematocrit 23.4 % (41-53); Hemoglobin 7.4 g/dL (13.5-17.5); Lymphocytes Percent Auto 13.9 % (25-40); Mean Corpuscular HGB Conc 31.8 % (30-36); Mean Corpuscular Hemoglobin 29.4 PG (26-34); Mean Corpuscular Volume 92.6 fL (80-100); Neutrophils Absolute Auto 11700 /uL (3000-5900); Neutrophils Percent Auto 78.5 % (50-75); Platelet Count 202 X10^3/uL (150-400); Red Blood Cell Count 2.53 X10^6/uL (4.5-5.9); Red Cell Distribution Width 17.5 % (11.6-14.8); White Blood Cell Count 14.8 X10^3/uL (4.5-11.0)
[2018-02-21 06:21] LABS: BUN Creatinine Ratio 17.3 (6-22); Blood Urea Nitrogen 19 mg/dL (9-20); Calcium 7.9 mg/dL (8.4-10.2); Carbon Dioxide 22 mmol/L (22-32); Chloride 109 mmol/L (98-107); Estimated Glomerular Filt Rate > 60.0 mL/min (>60); Glucose 135 mg/dL (80-110); HEMOLYSIS < 15 (0-50); Potassium 4.8 mmol/L (3.4-5.1); Sodium 140 mmol/L (137-145)
[2018-02-21 07:38] LABS: HEMOLYSIS < 15 (0-50); Iron 26 ug/dL (49-181)
[2018-02-21 07:48] LABS: Percent Iron Saturation 16 % (20-50); Total Iron Binding Capacity 166 ug/dL (261-462); Transferrin 94 mg/dL (206-381)
[2018-02-21 08:30] LABS: Vitamin B12 356 pg/mL (239-931)
[2018-02-21 08:48] LABS: Folate 6.2 ng/mL (2.76-20.0)
[2018-02-21] MEDS: SODIUM CHLORIDE 0.9% 500 ML IV (09:48)
[2018-02-21] MEDS: FLUCONAZOLE 200 MG/100 ML PIGGYBACK 100 MG IV (09:48)
[2018-02-21] MEDS: TRIMETH/SULFA 160/800 (DS) TABLET 1 TAB PO ×2 (09:49→21:17)
[2018-02-21] MEDS: CHOLECALCIFEROL (VITAMIN D3) 1,000 UNIT TABLET 3000 UNIT PO (09:49)
[2018-02-21] MEDS: BACLOFEN 10 MG TABLET 5 MG PO ×2 (09:49→21:17)
[2018-02-21] MEDS: guaiFENesin ER 600 MG TAB PO ×2 (09:49→21:16)
[2018-02-21] MEDS: metroNIDAZOLE 500 MG TABLET PO ×3 (09:52→21:18)
[2018-02-21] MEDS: CHOLESTYRAMINE/ASPARTAME 4 GM PACK PO ×3 (09:52→21:17)
[2018-02-21] MEDS: NYSTATIN CREAM 30 GM 1 APPLIC TOP ×2 (09:53→21:18)
[2018-02-21] MEDS: SODIUM CHLORIDE 0.9% 1,000 ML 100 ML IV ×2 (10:00→22:39)
[2018-02-21] MEDS: ENOXAPARIN 40 MG/0.4 ML SYRINGE SUBCUT (10:11)
--- NOTE | 2018-02-21 11:06 | PM.PN.1 ---
Subjective Date Patient Seen: 02/21/18 Time Patient Seen: 09:36 Interval history: NURSING REPORTED LOW BP THIS AM BOLUS ORDERED SPOKE TO SPOUSE AT BEDSIDE QUESTIONS AND CONCERNS ADDRESSED Exam Vital Signs (past 8 hours): - 02/21/18 08:00 Temperature 98.2 F Pulse Rate 67 Respiratory Rate 16 Blood Pressure 94/38 L Pulse Oximetry 94 Oxygen Delivery Method Room Air Narrative Exam Narrative: NO ACUTE DISTRESS. PATIENT IS ALERT ORIENTED X3. VITAL SIGNS STABLE HEAD ATRAUMATIC NORMOCEPHALIC NECK : SUPPLE WITHOUT ADENOPATHY NO CAROTID BRUITS EYE: EOMI, PERRLA, NORMAL CONJUNCTIVA; NO JAUNDICE CHEST: REGULAR RATE. NO RUBS. PMI IS NON DISPLACED. NO MURMURS; NORMAL S1-S2 PULMONARY: DECREASED BS OVER THE BASES. MILD BIBASILAR CRACKLES NOTED; NO INCREASED DULLNESS TO PERCUSSION; NO WHEEZING ABDOMEN: SOFT. NONTENDER. NONDISTENDED. BOWEL SOUNDS ARE PRESENT IN ALL 4 QUADRANTS. NO MASS. EXTREMITIES: NO EDEMA.. NO CYANOSIS CLUBBING NOTED. NEURO: NO NEW FOCAL NEUROLOGICAL DEFICIT NOTED GROSSLY; PARAPLEGIC MSK: NORMAL RANGE OF MOTION FOR AGE. NO JOINT EFFUSION. SKIN: NORMAL FOR ETHNICITY; NO ECCHYMOSIS. NO LESION. GOOD TURGOR.; NO RASHES : NORMAL EXTERNAL GENITALIA. PSYCH : APPROPRIATE MOOD AND AFFECT. ALERT AWAKE ORIENTED X3 Objective Labs Result Diagrams: 02/21/18 05:45 02/21/18 05:45 Labs: Laboratory Results - last 24 hr 02/20/18 02/20/18 02/20/18 22:12 22:15 22:17 WBC RBC Hgb Hct MCV MCH MCHC RDW Plt Count Neut % (Auto) Lymph % (Auto) Saline % (Auto) Eos % (Auto) Baso % (Auto) Neut # (Auto) Sodium Potassium Chloride Carbon Dioxide BUN Creatinine Estimated GFR BUN/Creatinine Ratio Glucose Lactate 1.0 Calcium Iron TIBC % Saturation Transferrin Total Bilirubin AST ALT Alkaline Phosphatase Total Protein Albumin Globulin Albumin/Globulin Ratio Lipase Vitamin B12 Folate Procalcitonin Urine Ictotest Negative Urine RBC 1-5/hpf Urine WBC >100/hpf H Urine Bacteria Many (>30) H Granular Casts 1-5/lpf Urine Yeast 5-10/hpf H Ur Culture Indicated? Specimen cultured Micro UA Comment Microscopic normal Ketones Influenza A & B (PCR) Negative 02/20/18 02/20/18 02/20/18 22:40 22:40 22:40 WBC 16.9 H RBC 2.91 L Hgb 8.6 L Hct 26.5 L MCV 91.4 MCH 29.4 MCHC 32.2 RDW 17.8 H Plt Count 257 Neut % (Auto) 86.8 H Lymph % (Auto) 6.2 L Saline % (Auto) 6.5 Eos % (Auto) 0.3 L Baso % (Auto) 0.2 Neut # (Auto) 77326 H Sodium 135 L Potassium 5.0 Chloride 102 Carbon Dioxide 23 BUN 23 H Creatinine 1.10 Estimated GFR > 60.0 BUN/Creatinine Ratio 20.9 Glucose 222 H Lactate Calcium 8.4 Iron TIBC % Saturation Transferrin Total Bilirubin 0.5 AST 25 ALT 10 L Alkaline Phosphatase 111 Total Protein 7.8 Albumin 3.5 Globulin 4.3 H Albumin/Globulin Ratio 0.8 L Lipase 12 L Vitamin B12 Folate Procalcitonin 0.90 H Urine Ictotest Urine RBC Urine WBC Urine Bacteria Granular Casts Urine Yeast Ur Culture Indicated? Micro UA Comment Ketones 0.21 Influenza A & B (PCR) 02/21/18 02/21/18 02/21/18 05:45 05:45 05:45 WBC 14.8 H RBC 2.53 L Hgb 7.4 L Hct 23.4 L MCV 92.6 MCH 29.4 MCHC 31.8 RDW 17.5 H Plt Count 202 Neut % (Auto) 78.5 H Lymph % (Auto) 13.9 L Saline % (Auto) 7.0 Eos % (Auto) 0.3 L Baso % (Auto) 0.3 Neut # (Auto) 01105 H Sodium 140 Potassium 4.8 Chloride 109 H Carbon Dioxide 22 BUN 19 Creatinine 1.10 Estimated GFR > 60.0 BUN/Creatinine Ratio 17.3 Glucose 135 H Lactate Calcium 7.9 L Iron 26 L TIBC 166 L % Saturation 16 L Transferrin 94 L Total Bilirubin AST ALT Alkaline Phosphatase Total Protein Albumin Globulin Albumin/Globulin Ratio Lipase Vitamin B12 Folate Procalcitonin Urine Ictotest Urine RBC Urine WBC Urine Bacteria Granular Casts Urine Yeast Ur Culture Indicated? Micro UA Comment Ketones Influenza A & B (PCR) 02/21/18 02/21/18 05:45 05:45 WBC RBC Hgb Hct MCV MCH MCHC RDW Plt Count Neut % (Auto) Lymph % (Auto) Saline % (Auto) Eos % (Auto) Baso % (Auto) Neut # (Auto) Sodium Potassium Chloride Carbon Dioxide BUN Creatinine Estimated GFR BUN/Creatinine Ratio Glucose Lactate Calcium Iron TIBC % Saturation Transferrin Total Bilirubin AST ALT Alkaline Phosphatase Total Protein Albumin Globulin Albumin/Globulin Ratio Lipase Vitamin B12 356 Folate 6.2 Procalcitonin Urine Ictotest Urine RBC Urine WBC Urine Bacteria Granular Casts Urine Yeast Ur Culture Indicated? Micro UA Comment Ketones Influenza A & B (PCR) Assessment & Plan Plan: Assessment/Plan Narrative: IMPRESSION AND PLAN UTI/PYELO; POA; LIKELY DUE TO CHRONIC VALLEJO; CONT ABX WITH BACTRIM ; FOLLOW CX AND ADJUST ABX INDICATED POSS YEAST URI; STARTED ON DIFLUCAN; FOLLOW CX POSS SIRS VS SEPSIS; POA; IVF ORDERED HYPOTENSION OBSERVED THIS AM; ABX ORDERED; FOLLOW CX; ADJUST ABX INDICATED ; PATIENT ON BACTRIM ; CONSIDER CEFEPIME OBESITY; OP MANAGEMENT ANEMIA ; LIKELY OF CD; POSS MILD COMPONENT OF IRON DEF; DAILY LABS; START ON ORAL IRON SUPP DM; ON ISS; DIABETIC DIET PARAPLEGIA; ASPIRATION PRECAUTIONS WELL SKIN PRECAUTIONS; PT/OT INDICATED FEVER; RESOLVED HTN PER HX; HOME MEDS POSS SKIN BREAKDOWN WITH YEAST INFESTATION; WILL ORDER NYSTATIN CREAM DIARRHEA; C DIFF; STARTED ON FLAGYL AND QUESTRAN FOR NOW DC PER CLINICAL COURSE POSS IN NEXT 48-72 HRS IF STABLE
--- NOTE | 2018-02-21 11:14 | P.PN_ITS ---
Subjective Date Patient Seen: 02/21/18 Time Patient Seen: 09:36 Interval history: NURSING REPORTED LOW BP THIS AM BOLUS ORDERED SPOKE TO SPOUSE AT BEDSIDE QUESTIONS AND CONCERNS ADDRESSED Exam Vital Signs (past 8 hours): - 02/21/18 08:00 Temperature 98.2 F Pulse Rate 67 Respiratory Rate 16 Blood Pressure 94/38 L Pulse Oximetry 94 Oxygen Delivery Method Room Air Narrative Exam Narrative: NO ACUTE DISTRESS. PATIENT IS ALERT ORIENTED X3. VITAL SIGNS STABLE HEAD ATRAUMATIC NORMOCEPHALIC NECK : SUPPLE WITHOUT ADENOPATHY NO CAROTID BRUITS EYE: EOMI, PERRLA, NORMAL CONJUNCTIVA; NO JAUNDICE CHEST: REGULAR RATE. NO RUBS. PMI IS NON DISPLACED. NO MURMURS; NORMAL S1- S2 PULMONARY: DECREASED BS OVER THE BASES. MILD BIBASILAR CRACKLES NOTED; NO INCREASED DULLNESS TO PERCUSSION; NO WHEEZING ABDOMEN: SOFT. NONTENDER. NONDISTENDED. BOWEL SOUNDS ARE PRESENT IN ALL 4 QUADRANTS. NO MASS. EXTREMITIES: NO EDEMA.. NO CYANOSIS CLUBBING NOTED. NEURO: NO NEW FOCAL NEUROLOGICAL DEFICIT NOTED GROSSLY; PARAPLEGIC MSK: NORMAL RANGE OF MOTION FOR AGE. NO JOINT EFFUSION. SKIN: NORMAL FOR ETHNICITY; NO ECCHYMOSIS. NO LESION. GOOD TURGOR.; NO RASHES : NORMAL EXTERNAL GENITALIA. PSYCH : APPROPRIATE MOOD AND AFFECT. ALERT AWAKE ORIENTED X3 Objective Labs Result Diagrams: 02/21/18 05:45 02/21/18 05:45 Labs: Laboratory Results - last 24 hr 02/20/18 02/20/18 02/20/18 22:12 22:15 22:17 WBC RBC Hgb Hct MCV MCH MCHC RDW Plt Count Neut % (Auto) Lymph % (Auto) [place] % (Auto) Eos % (Auto) Baso % (Auto) Neut # (Auto) Sodium Potassium Chloride Carbon Dioxide BUN Creatinine Estimated GFR BUN/Creatinine Ratio Glucose Lactate 1.0 Calcium Iron TIBC % Saturation Transferrin Total Bilirubin AST ALT Alkaline Phosphatase Total Protein Albumin Globulin Albumin/Globulin Ratio Lipase Vitamin B12 Folate Procalcitonin Urine Ictotest Negative Urine RBC 1-5/hpf Urine WBC >100/hpf H Urine Bacteria Many (>30) H Granular Casts 1-5/lpf Urine Yeast 5-10/hpf H Ur Culture Indicated? Specimen cultured Micro UA Comment Microscopic normal Ketones Influenza A & B (PCR) Negative 02/20/18 02/20/18 02/20/18 22:40 22:40 22:40 WBC 16.9 H RBC 2.91 L Hgb 8.6 L Hct 26.5 L MCV 91.4 MCH 29.4 MCHC 32.2 RDW 17.8 H Plt Count 257 Neut % (Auto) 86.8 H Lymph % (Auto) 6.2 L [place] % (Auto) 6.5 Eos % (Auto) 0.3 L Baso % (Auto) 0.2 Neut # (Auto) 37488 H Sodium 135 L Potassium 5.0 Chloride 102 Carbon Dioxide 23 BUN 23 H Creatinine 1.10 Estimated GFR > 60.0 BUN/Creatinine Ratio 20.9 Glucose 222 H Lactate Calcium 8.4 Iron TIBC % Saturation Transferrin Total Bilirubin 0.5 AST 25 ALT 10 L Alkaline Phosphatase 111 Total Protein 7.8 Albumin 3.5 Globulin 4.3 H Albumin/Globulin Ratio 0.8 L Lipase 12 L Vitamin B12 Folate Procalcitonin 0.90 H Urine Ictotest Urine RBC Urine WBC Urine Bacteria Granular Casts Urine Yeast Ur Culture Indicated? Micro UA Comment Ketones 0.21 Influenza A & B (PCR) 02/21/18 02/21/18 02/21/18 05:45 05:45 05:45 WBC 14.8 H RBC 2.53 L Hgb 7.4 L Hct 23.4 L MCV 92.6 MCH 29.4 MCHC 31.8 RDW 17.5 H Plt Count 202 Neut % (Auto) 78.5 H Lymph % (Auto) 13.9 L [place] % (Auto) 7.0 Eos % (Auto) 0.3 L Baso % (Auto) 0.3 Neut # (Auto) 63832 H Sodium 140 Potassium 4.8 Chloride 109 H Carbon Dioxide 22 BUN 19 Creatinine 1.10 Estimated GFR > 60.0 BUN/Creatinine Ratio 17.3 Glucose 135 H Lactate Calcium 7.9 L Iron 26 L TIBC 166 L % Saturation 16 L Transferrin 94 L Total Bilirubin AST ALT Alkaline Phosphatase Total Protein Albumin Globulin Albumin/Globulin Ratio Lipase Vitamin B12 Folate Procalcitonin Urine Ictotest Urine RBC Urine WBC Urine Bacteria Granular Casts Urine Yeast Ur Culture Indicated? Micro UA Comment Ketones Influenza A & B (PCR) 02/21/18 02/21/18 05:45 05:45 WBC RBC Hgb Hct MCV MCH MCHC RDW Plt Count Neut % (Auto) Lymph % (Auto) [place] % (Auto) Eos % (Auto) Baso % (Auto) Neut # (Auto) Sodium Potassium Chloride Carbon Dioxide BUN Creatinine Estimated GFR BUN/Creatinine Ratio Glucose Lactate Calcium Iron TIBC % Saturation Transferrin Total Bilirubin AST ALT Alkaline Phosphatase Total Protein Albumin Globulin Albumin/Globulin Ratio Lipase Vitamin B12 356 Folate 6.2 Procalcitonin Urine Ictotest Urine RBC Urine WBC Urine Bacteria Granular Casts Urine Yeast Ur Culture Indicated? Micro UA Comment Ketones Influenza A & B (PCR) Assessment & Plan Plan: Assessment/Plan Narrative: IMPRESSION AND PLAN UTI/PYELO; POA; LIKELY DUE TO CHRONIC VALLEJO; CONT ABX WITH BACTRIM ; FOLLOW CX AND ADJUST ABX INDICATED POSS YEAST URI; STARTED ON DIFLUCAN; FOLLOW CX POSS SIRS VS SEPSIS; POA; IVF ORDERED HYPOTENSION OBSERVED THIS AM; ABX ORDERED; FOLLOW CX; ADJUST ABX INDICATED ; PATIENT ON BACTRIM ; CONSIDER CEFEPIME OBESITY; OP MANAGEMENT ANEMIA ; LIKELY OF CD; POSS MILD COMPONENT OF IRON DEF; DAILY LABS; START ON ORAL IRON SUPP DM; ON ISS; DIABETIC DIET PARAPLEGIA; ASPIRATION PRECAUTIONS WELL SKIN PRECAUTIONS; PT/OT INDICATED FEVER; RESOLVED HTN PER HX; HOME MEDS POSS SKIN BREAKDOWN WITH YEAST INFESTATION; WILL ORDER NYSTATIN CREAM DIARRHEA; C DIFF; STARTED ON FLAGYL AND QUESTRAN FOR NOW DC PER CLINICAL COURSE POSS IN NEXT 48-72 HRS IF STABLE
--- NOTE | 2018-02-21 11:20 | PT.IPTN ---
Current Diagnoses Pneumonia, unspecified organism (02/21/18) Physical Therapy Treatment Note M3 PT-IP Subjective Start: 02/21/18 11:24 Freq: NEEDED Status: Active Protocol: Document 02/21/18 11:20 [facility] (Rec: 02/21/18 11:26 [facility] [id number]) Subjective Physical Therapy Visit Type Type Patient Refusal Notes pt's refusing PT for the pt today due to having a bad night and morning. Pt is agreeable to attempt PT during this episode of care but not at this point today
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
[2018-02-21] MEDS: INSULIN ASPART 100 UNIT/ML INSULN PEN SUBCUT ×2 (13:46→16:37)
[2018-02-21] MEDS: FERROUS GLUCONATE 324 MG TABLET PO (13:48)
[2018-02-21 16:14] LABS: Appearance Urine UA SL CLOUDY; Bilirubin Urine UA NEGATIVE (NEGATIVE); Color Urine UA YELLOW; Glucose Urine UA NEGATIVE (Normal); Ketones Urine UA NEGATIVE (NEGATIVE); Leukocyte Esterase Urine UA 2+ (NEGATIVE); Nitrite Urine UA NEGATIVE (Negative); Occult Blood Urine UA 1+ (Negative); Protein Urine UA NEGATIVE (Negative); Specific Gravity Urine UA <=1.005 (1.000-1.035); Urobilinogen Urine UA 0.2 E.U./dL (0.2); pH Urine UA 5.5 (4.5-8.0)
[2018-02-21 16:29] LABS: Bacteria Urine Few (2-10); RBC Urine 1-5/HPF (0-5/HPF); Squamous Epithelial Cell Urine None Seen; WBC Urine 5-10/HPF (0-5/HPF)
--- NOTE | 2018-02-21 16:33 | CM.MNRNOTE ---
Neuro: Here for delirium. Is oriented this shift. has directed his care for many years and she wants things done her way, she says this works the best for him. MD requested pope changed and made aware. She wanted to replace pope. She has done this for him many years but wanted to know why it needed to be done. Same was explained to her. See if pope is the cause of his infection and resend the spec. replaced pope with an 18F cath, she uses clean tech, not sterile. However she did use the sterile gloves in the kit which were provided since they are already there. Spouse does use her teeth to remove caps and she understands best practice, but she is the only one at home. Pt tolerated procedure w/out problems. Spouse also wanted a special bed ordered for pt and this was done and he was settled into his new bed when it arrived. She reports an open area to the buttock area but it wasn't seen and she doesn't want him disturbed at this time. PT here but they were declined. Spouse and pt both felt he/patient needed to rest. PT will come back daily to see if they have any needs or concerns. They have seen PT in the past, they already have a lift at home and a wheelchair. Cont to observe.
[2018-02-21] MEDS: INSULIN ASPART 100 UNIT/ML INSULN PEN 12 UNIT SUBCUT (19:15)
[2018-02-21] MEDS: ACETAMINOPHEN 325 MG TABLET 650 MG PO (19:27)
[2018-02-21] MEDS: MORPHINE ER 30 MG TABLET PO (21:15)
[2018-02-21] MEDS: TRAZODONE 50 MG TABLET PO (21:20)
[2018-02-21] MEDS: INSULIN GLARGINE 100 UNIT/ML 3ML PEN 30 UNIT SUBCUT (21:29)
[2018-02-22] VITALS (15 sets, daily range): BP systolic 113–142; BP diastolic 49–64; PULSE 56–78; RESP 15–20; TEMP 36.7–38.4; O2SAT 91–98
[2018-02-22] MEDS: ACETAMINOPHEN 325 MG TABLET 650 MG PO ×3 (01:33→23:52)
--- NOTE | 2018-02-22 06:00 | DI.RAD.S_ITS ---
PROCEDURE: XR CHEST 1V INDICATIONS: pneumonia TECHNIQUE: One view of the chest was acquired. COMPARISON: [facility], , CHEST 1 VIEW, 04/22/2017, 13:43. [facility], , CHEST 2 VIEW, 02/02/2015, 17:20. [facility], CR, XR CHEST 1V, 11/01/2017, 8:22. [facility], , XR CHEST 1V, 02/20/2018, 22:30. FINDINGS: Surgical changes and devices: Thoracic spine posterior fixation hardware redemonstrated.. Lungs and pleura: No pleural effusions or pneumothorax. Persistent consolidation involving the medial left lung base and there is new airspace opacity involving the right lung base Mediastinum: Mediastinal contours appear normal. Heart size is normal. Bones and chest wall: No suspicious bony lesions. Overlying soft tissues appear unremarkable. IMPRESSION: 1. Persistent airspace opacity involving left lung base similar to prior examination and there is new airspace opacity involving the right lung base consistent with atelectasis versus aspiration or pneumonia. Dictated by: Ant Cornejo [facility] Interpreted: Audrey Salcedo MD on 02/22/2018 at 7:46 Approved by: Audrey Salcedo MD, PhD on 02/22/2018 at 8:52
[2018-02-22 06:15] LABS: Add Manual Diff / Slide Review NO; Basophils Percent Auto 0.2 % (0-2); Eosinophils Percent Auto 0.7 % (2-4); Hematocrit 22.3 % (41-53); Hemoglobin 7.1 g/dL (13.5-17.5); Lymphocytes Percent Auto 17.9 % (25-40); Mean Corpuscular Hemoglobin 29.8 PG (26-34); Neutrophils Absolute Auto 7000 /uL (3000-5900); Neutrophils Percent Auto 73.2 % (50-75); Platelet Count 199 X10^3/uL (150-400); Red Cell Distribution Width 18.5 % (11.6-14.8); White Blood Cell Count 9.5 X10^3/uL (4.5-11.0)
[2018-02-22 06:33] LABS: Alanine Aminotransferase 16 IU/L (21-72); Albumin 2.8 g/dL (3.5-5.0); Albumin Globulin Ratio 0.8 (1.0-2.8); Alkaline Phosphatase 91 U/L (38-126); Aspartate Aminotransferase 13 IU/L (17-59); BUN Creatinine Ratio 14.2 (6-22); Bilirubin Total 0.2 mg/dL (0.2-1.3); Blood Urea Nitrogen 17 mg/dL (9-20); Carbon Dioxide 21 mmol/L (22-32); Chloride 111 mmol/L (98-107); Estimated Glomerular Filt Rate > 60.0 mL/min (>60); Globulin 3.6 g/dL (1.7-4.1); Glucose 109 mg/dL (80-110); HEMOLYSIS < 15 (0-50); Magnesium 1.9 mg/dL (1.6-2.3); Phosphorous 3.4 mg/dL (2.3-3.7); Potassium 4.4 mmol/L (3.4-5.1); Sodium 141 mmol/L (137-145); Total Protein 6.4 g/dL (6.3-8.2)
[2018-02-22 06:41] LABS: Procalcitonin 1.08 ng/mL (<0.5)
[2018-02-22] MEDS: SODIUM CHLORIDE 0.9% 1,000 ML 100 ML IV (08:43)
[2018-02-22] MEDS: INSULIN ASPART 100 UNIT/ML INSULN PEN 12 UNIT SUBCUT (08:56)
[2018-02-22] MEDS: FLUCONAZOLE 200 MG/100 ML PIGGYBACK 100 MG IV (08:56)
[2018-02-22] MEDS: CHOLESTYRAMINE/ASPARTAME 4 GM PACK PO (08:57)
[2018-02-22] MEDS: ENOXAPARIN 30 MG/0.3 ML SYRINGE SUBCUT ×2 (08:59→20:51)
[2018-02-22] MEDS: FERROUS GLUCONATE 324 MG TABLET PO (09:00)
[2018-02-22] MEDS: guaiFENesin ER 600 MG TAB PO ×2 (09:00→20:51)
[2018-02-22] MEDS: BACLOFEN 10 MG TABLET 5 MG PO ×2 (09:01→20:53)
[2018-02-22] MEDS: CHOLECALCIFEROL (VITAMIN D3) 1,000 UNIT TABLET 3000 UNIT PO (09:02)
[2018-02-22] MEDS: MORPHINE ER 30 MG TABLET PO ×2 (09:02→21:05)
[2018-02-22] MEDS: metroNIDAZOLE 500 MG TABLET PO ×3 (09:04→21:09)
[2018-02-22] MEDS: TRIMETH/SULFA 160/800 (DS) TABLET 1 TAB PO ×2 (09:07→21:09)
[2018-02-22] MEDS: NYSTATIN CREAM 30 GM 1 APPLIC TOP ×2 (11:10→21:10)
[2018-02-22] MEDS: levoFLOXacin 500 MG TABLET PO (11:11)
--- NOTE | 2018-02-22 13:03 | P.PN_ITS ---
Subjective Date Patient Seen: 02/22/18 Time Patient Seen: 09:00 Interval history: SPOKE TO PATIENT WITH FAMILY AT BEDSIDE FEELING BETTER BUT FEELING COLD THINK HE HAD FEVER OVERNIGHT NO OTHER COMPLAINTS QUESTIONS AND CONCERNS ADDRESSED Exam Vital Signs (past 8 hours): - 02/22/18 08:00 02/22/18 11:56 Temperature 98.1 F 98.7 F Pulse Rate 69 66 Respiratory Rate 16 16 Blood Pressure 121/60 133/50 L Pulse Oximetry 94 93 Oxygen Delivery Method Room Air Narrative Exam Narrative: NO ACUTE DISTRESS. PATIENT IS ALERT ORIENTED X3. VITAL SIGNS STABLE HEAD ATRAUMATIC NORMOCEPHALIC NECK : SUPPLE WITHOUT ADENOPATHY NO CAROTID BRUITS EYE: EOMI, PERRLA, NORMAL CONJUNCTIVA; NO JAUNDICE CHEST: REGULAR RATE. NO RUBS. PMI IS NON DISPLACED. NO MURMURS; NORMAL S1- S2 PULMONARY: DECREASED BS OVER THE BASES. MILD BIBASILAR CRACKLES NOTED; NO INCREASED DULLNESS TO PERCUSSION; NO WHEEZING ABDOMEN: SOFT. NONTENDER. NONDISTENDED. BOWEL SOUNDS ARE PRESENT IN ALL 4 QUADRANTS. NO MASS. EXTREMITIES: NO EDEMA.. NO CYANOSIS CLUBBING NOTED. NEURO: NO NEW FOCAL NEUROLOGICAL DEFICIT NOTED GROSSLY; PARAPLEGIC MSK: NORMAL RANGE OF MOTION FOR AGE. NO JOINT EFFUSION. SKIN: NORMAL FOR ETHNICITY; NO ECCHYMOSIS. NO LESION. GOOD TURGOR.; NO RASHES : NORMAL EXTERNAL GENITALIA. CATHETER IN PLACE; YELLOWISH URINE PSYCH : APPROPRIATE MOOD AND AFFECT. ALERT AWAKE ORIENTED X3 Objective Labs Result Diagrams: 02/22/18 05:46 02/22/18 05:46 Labs: Laboratory Results - last 24 hr 02/21/18 02/22/18 02/22/18 15:50 05:46 05:46 WBC 9.5 RBC 2.40 L Hgb 7.1 L Hct 22.3 L MCV 93.0 MCH 29.8 MCHC 32.0 RDW 18.5 H Plt Count 199 Neut % (Auto) 73.2 Lymph % (Auto) 17.9 L [place] % (Auto) 8.0 Eos % (Auto) 0.7 L Baso % (Auto) 0.2 Neut # (Auto) 7000 H Sodium Potassium Chloride Carbon Dioxide BUN Creatinine Estimated GFR BUN/Creatinine Ratio Glucose Calcium Phosphorus Magnesium Total Bilirubin AST ALT Alkaline Phosphatase Total Protein Albumin Globulin Albumin/Globulin Ratio Procalcitonin 1.08 H Urine Color Yellow Urine Appearance Sl cloudy Urine pH 5.5 Ur Specific [place] <=1.005 Urine Protein Negative Urine Glucose (UA) Negative Urine Ketones Negative Urine Occult Blood 1+ H Urine Nitrate Negative Urine Bilirubin Negative Urine Urobilinogen 0.2 Ur Leukocyte Esterase 2+ H Urine RBC 1-5/hpf Urine WBC 5-10/hpf H Ur Squamous Epith Cells None seen Urine Bacteria Few (2-10) H D Ur Culture Indicated? Micro UA Comment Not Reportable 02/22/18 05:46 WBC RBC Hgb Hct MCV MCH MCHC RDW Plt Count Neut % (Auto) Lymph % (Auto) [place] % (Auto) Eos % (Auto) Baso % (Auto) Neut # (Auto) Sodium 141 Potassium 4.4 Chloride 111 H Carbon Dioxide 21 L BUN 17 Creatinine 1.20 Estimated GFR > 60.0 BUN/Creatinine Ratio 14.2 Glucose 109 Calcium 8.0 L Phosphorus 3.4 Magnesium 1.9 Total Bilirubin 0.2 AST 13 L ALT 16 L Alkaline Phosphatase 91 Total Protein 6.4 Albumin 2.8 L Globulin 3.6 Albumin/Globulin Ratio 0.8 L Procalcitonin Urine Color Urine Appearance Urine pH Ur Specific [place] Urine Protein Urine Glucose (UA) Urine Ketones Urine Occult Blood Urine Nitrate Urine Bilirubin Urine Urobilinogen Ur Leukocyte Esterase Urine RBC Urine WBC Ur Squamous Epith Cells Urine Bacteria Ur Culture Indicated? Micro UA Comment Assessment & Plan Plan: Assessment/Plan Narrative: IMPRESSION AND PLAN UTI/PYELO; POA; LIKELY DUE TO CHRONIC VALLEJO; CONT ABX WITH BACTRIM; LEVAQUIN ADDED DUE TO SENSITIVITY REPORT OF NEW ORGASNISM NOTED ON CX ; SWITCH TO ORAL AGENT IN AM IN PREP FOR DC POSS YEAST UTI; STARTED ON DIFLUCAN; ADDITIONAL TX INDICATED CLINICALLY FEVER; SECONDARY TO ABOVED; APPEARS RESOLVED; CONT TO FOLLOW CX; REPEAT THOSE CX INDICATED POSS SIRS VS SEPSIS; POA; IVF ORDERED HYPOTENSION RESOLVED; ABX ORDERED WITH BACTRIM AND LEVAQUIN; CONT TO FOLLOW CX; CONT TO MAKE ADJUSTMENT TO ABX INDICATED ; PATIENT ON BACTRIM ; LEVAQUIN ADDED OBESITY; OP MANAGEMENT ANEMIA ; LIKELY OF CD; POSS MILD COMPONENT OF IRON DEF; DAILY LABS; START ON ORAL IRON SUPP DM2; ON ISS; DIABETIC DIET PARAPLEGIA; ASPIRATION PRECAUTIONS WELL SKIN PRECAUTIONS; PT/OT INDICATED HTN PER HX; HOME MEDS POSS SKIN BREAKDOWN WITH YEAST INFESTATION; WILL ORDER NYSTATIN CREAM DIARRHEA; C DIFF NEG; CONT ON FLAGYL; HOLD QUESTRAN FOR NOW; IMPROVED DC PER CLINICAL COURSE POSS IN NEXT 24-48 HRS HRS IF STABLE
--- NOTE | 2018-02-22 14:25 | PC.NURSE ---
Nilson has been fever-free thus far today. Urine draining pale yellow UOP via pope. Nilson states his chronic pain is well controlled after Morphine ER administered. He is taking meals and sleeping in between. Declined PT. His Ernie is very involved in his care. She states that her preferred treatment for 2 small (.5cm size stage 2 decubiti) on his L mid to lower buttock area is Crack Cream, a type of barrier cream. Ernie applied this cream when pt. was turned on his side.
[2018-02-22] MEDS: DOCUSATE 100 MG CAPSULE PO (20:51)
[2018-02-22] MEDS: INSULIN GLARGINE 100 UNIT/ML 3ML PEN 30 UNIT SUBCUT (20:53)
[2018-02-22] MEDS: BISACODYL 10 MG SUPP PR (20:54)
[2018-02-22] MEDS: TRAZODONE 50 MG TABLET PO (20:58)
--- NOTE | 2018-02-22 22:30 | PC.NURSE ---
Addendum entered by Gracia Martinez R.N. 02/22/18 23:25: Pt education done to prevent additional skin break down. Offered frequent turns and Allevyn dressing to help prevent further breakdown. Pt's refused. Further education was done on pt safety with the height of the bed. refused to lower the bed when care was not being done. Original Note: Evening shift 1600: Pt assessed. A/o. Denies pain at this time. at bedside 1800: Pt started to complain of SOB. Home CPAP placed with 2 L O2. Pt lungs sound diminished. raised head of bed patient refused. Diaphragm pushing against abdominal girth. Pt states he feels like there is a large gas bubble putting extra pressure. RT notified to double check assessment. BLUEPRINTING MACHINE OPERATOR notified of pt's condition. Will try bowel care medication to see if it will help relieve abdominal pressure. Education done.
--- NOTE | 2018-02-22 23:37 | PC.NURSE ---
completed bowel care stated three hard stools.
[2018-02-23] VITALS (13 sets, daily range): BP systolic 126–152; BP diastolic 55–73; PULSE 62–80; RESP 14–18; TEMP 36.9–37.6; O2SAT 90–99
--- NOTE | 2018-02-23 03:27 | PC.NURSE ---
Addendum entered by Jovita Bell R.N. 02/23/18 06:53: 0650 pt declines his 0700 PO Levaquin, he wants to have it with his breakfast. Original Note: material handler 1st shift: 0000 at shift change reported that pts spouse was upset that night pharmacy did not have Preparation H for pts hemorrhoids, during assessment Preparation H at the bedside and pt verbalized her frustration to this RN. Believe that pts spouse applied med per their normal home routine. Pt denies pain. Medicated with prn Tylenol for temp of 100.2, discussed repositioning pt and pt and spouse declined. Spouses requests that we do not recheck temp again until we check blood glucose at 0200. 0200 CBG 78, offered pt juice and pt and spouse decline.
[2018-02-23 07:24] LABS: Add Manual Diff / Slide Review NO; Basophils Percent Auto 0.5 % (0-2); Eosinophils Percent Auto 0.6 % (2-4); Hematocrit 22.1 % (41-53); Hemoglobin 7.3 g/dL (13.5-17.5); Mean Corpuscular Hemoglobin 30.1 PG (26-34); Mean Corpuscular Volume 91.2 fL (80-100); Monocytes Percent Auto 8.5 % (3-14); Neutrophils Absolute Auto 7000 /uL (3000-5900); Neutrophils Percent Auto 75.4 % (50-75); Platelet Count 202 X10^3/uL (150-400); Red Blood Cell Count 2.42 X10^6/uL (4.5-5.9); Red Cell Distribution Width 18.3 % (11.6-14.8); White Blood Cell Count 9.3 X10^3/uL (4.5-11.0)
[2018-02-23 07:44] LABS: Alanine Aminotransferase 13 IU/L (21-72); Albumin 2.9 g/dL (3.5-5.0); Albumin Globulin Ratio 0.8 (1.0-2.8); Alkaline Phosphatase 91 U/L (38-126); Aspartate Aminotransferase 14 IU/L (17-59); BUN Creatinine Ratio 14.2 (6-22); Bilirubin Total 0.2 mg/dL (0.2-1.3); Blood Urea Nitrogen 17 mg/dL (9-20); Calcium 8.4 mg/dL (8.4-10.2); Carbon Dioxide 20 mmol/L (22-32); Chloride 109 mmol/L (98-107); Estimated Glomerular Filt Rate > 60.0 mL/min (>60); Globulin 3.8 g/dL (1.7-4.1); Glucose 67 mg/dL (80-110); HEMOLYSIS < 15 (0-50); Phosphorous 3.9 mg/dL (2.3-3.7); Potassium 4.5 mmol/L (3.4-5.1); Sodium 140 mmol/L (137-145); Total Protein 6.7 g/dL (6.3-8.2)
[2018-02-23] MEDS: levoFLOXacin 500 MG TABLET PO (08:30)
[2018-02-23] MEDS: FLUCONAZOLE 200 MG/100 ML PIGGYBACK 100 MG IV (08:40)
[2018-02-23] MEDS: BACLOFEN 10 MG TABLET 5 MG PO ×2 (08:46→20:09)
[2018-02-23] MEDS: ENOXAPARIN 30 MG/0.3 ML SYRINGE SUBCUT ×2 (08:47→20:09)
[2018-02-23] MEDS: CHOLECALCIFEROL (VITAMIN D3) 1,000 UNIT TABLET 3000 UNIT PO (08:47)
[2018-02-23] MEDS: FERROUS GLUCONATE 324 MG TABLET PO (08:47)
[2018-02-23] MEDS: metroNIDAZOLE 500 MG TABLET PO ×3 (08:48→20:09)
[2018-02-23] MEDS: guaiFENesin ER 600 MG TAB PO ×2 (08:48→20:09)
[2018-02-23] MEDS: NYSTATIN CREAM 30 GM 1 APPLIC TOP ×2 (08:48→20:12)
[2018-02-23] MEDS: TRIMETH/SULFA 160/800 (DS) TABLET 1 TAB PO ×2 (08:49→20:21)
[2018-02-23] MEDS: MORPHINE ER 30 MG TABLET PO ×2 (08:54→20:15)
--- NOTE | 2018-02-23 09:33 | PT.IPTN ---
Current Diagnoses Pneumonia, unspecified organism (02/21/18) Physical Therapy Treatment Note M3 PT-IP Subjective Start: 02/21/18 11:24 Freq: NEEDED Status: Active Protocol: Document 02/23/18 09:31 AB (Rec: 02/23/18 09:33 AB [id number]) Subjective Physical Therapy Visit Type Type Patient Refusal Notes Checked on pt and spouse present. spouse is upset and stated that she informed PT 2 days in a row that she and the pt does not want any PT. stated that pt is not feeling well and does not want to be charged for PT. informed pt and spouse that PT eval order will be canceled/discharged. pt and spouse agreed.
[2018-02-23] MEDS: CHOLESTYRAMINE/ASPARTAME 4 GM PACK PO (09:55)
--- NOTE | 2018-02-23 10:07 | P.PN_ITS ---
Subjective Date Patient Seen: 02/23/18 Time Patient Seen: 07:25 Interval history: SPOKE TO PATIENT WITH AT BEDSIDE NO CHILLS; FEVER REPORTED OVERNIGHT PATIENT ANXIOUS TO GO HOME NO CP/SOB NO OTHER SIGNIFICANT ISSUES OVERNIGHT Exam Vital Signs (past 8 hours): - 02/23/18 05:00 02/23/18 05:39 02/23/18 08:40 Temperature 98.8 F 99.2 F Pulse Rate 70 65 Respiratory Rate 18 18 Blood Pressure 126/55 L 148/63 H Pulse Oximetry 96 95 96 02/23/18 09:12 02/23/18 09:48 Temperature Pulse Rate Respiratory Rate Blood Pressure Pulse Oximetry 98 97 Oxygen Delivery Method Nasal Cannula Oxygen Flow Rate 2 Narrative Exam Narrative: NO ACUTE DISTRESS. PATIENT IS ALERT ORIENTED X3. VITAL SIGNS STABLE HEAD ATRAUMATIC NORMOCEPHALIC NECK : SUPPLE WITHOUT ADENOPATHY NO CAROTID BRUITS EYE: EOMI, PERRLA, NORMAL CONJUNCTIVA; NO JAUNDICE CHEST: REGULAR RATE. NO RUBS. PMI IS NON DISPLACED. NO MURMURS; NORMAL S1- S2 PULMONARY: DECREASED BS OVER THE BASES. MILD BIBASILAR CRACKLES NOTED; NO INCREASED DULLNESS TO PERCUSSION; NO WHEEZING ABDOMEN: SOFT. NONTENDER. NONDISTENDED. BOWEL SOUNDS ARE PRESENT IN ALL 4 QUADRANTS. NO MASS. EXTREMITIES: NO EDEMA.. NO CYANOSIS CLUBBING NOTED. NEURO: NO NEW FOCAL NEUROLOGICAL DEFICIT NOTED GROSSLY; PARAPLEGIC MSK: NORMAL RANGE OF MOTION FOR AGE. NO JOINT EFFUSION. SKIN: NORMAL FOR ETHNICITY; NO ECCHYMOSIS. NO LESION. GOOD TURGOR.; NO RASHES : NORMAL EXTERNAL GENITALIA. CATHETER IN PLACE; YELLOWISH URINE PSYCH : APPROPRIATE MOOD AND AFFECT. ALERT AWAKE ORIENTED X3 Objective Labs Result Diagrams: 02/23/18 05:00 02/23/18 05:00 Labs: Laboratory Results - last 24 hr 02/23/18 02/23/18 05:00 05:00 WBC 9.3 RBC 2.42 L Hgb 7.3 L Hct 22.1 L MCV 91.2 MCH 30.1 MCHC 33.0 RDW 18.3 H Plt Count 202 Neut % (Auto) 75.4 H Lymph % (Auto) 15.0 L [place] % (Auto) 8.5 Eos % (Auto) 0.6 L Baso % (Auto) 0.5 Neut # (Auto) 7000 H Sodium 140 Potassium 4.5 Chloride 109 H Carbon Dioxide 20 L BUN 17 Creatinine 1.20 Estimated GFR > 60.0 BUN/Creatinine Ratio 14.2 Glucose 67 L Calcium 8.4 Phosphorus 3.9 H Magnesium 2.0 Total Bilirubin 0.2 AST 14 L ALT 13 L Alkaline Phosphatase 91 Total Protein 6.7 Albumin 2.9 L Globulin 3.8 Albumin/Globulin Ratio 0.8 L Assessment & Plan Plan: Assessment/Plan Narrative: IMPRESSION AND PLAN UTI/PYELO; POA; LIKELY DUE TO CHRONIC VALLEJO; CONT ABX WITH BACTRIM; LEVAQUIN ADDED DUE TO SENSITIVITY REPORT OF NEW ORGASNISM NOTED ON CX ; SWITCH TO ORAL AGENT ON DC. CONT CURRENT MANAGEMENT FOR NOW POSS YEAST UTI; CONTINUE DIFLUCAN; ADDITIONAL TX INDICATED CLINICALLY FEVER; SECONDARY TO ABOVED; NOTED ONCE AGAIN; CONT TO FOLLOW CLOSELY; REPEAT CX AND LABS TESTING INDICATED; VS PER UNIT PROTOCOL POSS SIRS VS SEPSIS; POA; DUE TO UTI; ; ABX ORDERED WITH BACTRIM AND LEVAQUIN AND DIFLUCAN; CONT TO MAKE ADJUSTMENT TO ABX INDICATED ; PATIENT ON BACTRIM ; LEVAQUIN ADDED OBESITY; OP MANAGEMENT ANEMIA ; LIKELY OF CD; POSS MILD COMPONENT OF IRON DEF; DAILY LABS; START ON ORAL IRON SUPP DM2; ON ISS; DIABETIC DIET PARAPLEGIA; ASPIRATION PRECAUTIONS WELL SKIN PRECAUTIONS; PT/OT INDICATED HTN PER HX; HOME MEDS POSS SKIN BREAKDOWN WITH YEAST INFESTATION; WILL ORDER NYSTATIN CREAM RECURRING DIARRHEA; RULE OUT C DIFF THE PREVIOUS ORDERED TEST WAS NOT COMPLETED; CONT ON FLAGYL; RESTARTED ON QUESTRAN FOR NOW; DC PER CLINICAL COURSE POSS IN NEXT 24 HRS HRS IF STABLE
--- NOTE | 2018-02-23 13:48 | PC.NURSE ---
Day shift: Per Pt and Pt's spouse the Prevalite this AM has caused bloating and Pt has been very uncomfortable. Pt states he will be refusing it for now.
--- NOTE | 2018-02-23 14:42 | PC.NURSE ---
Day shift: Per Lab We don't do C.Dif testing on formed stool. Will inform next shift that Pt is neg for C.Dif.
[2018-02-23 16:12] LABS: Adenovirus F 40/41 Not Detected (Not Detect); Astrovirus Not Detected (Not Detect); Campylobacter Not Detected (Not Detect); Clostridium difficile toxin AB Not Detected (Not Detect); Cryptosporidium Not Detected (Not Detect); Cyclospora cayetanensis Not Detected (Not Detect); Entamoeba histolytica Not Detected (Not Detect); Enteroaggregative E.coli Not Detected (Not Detect); Enteropathogenic E.coli Not Detected (Not Detect); Enterotoxigenic E.coli It/st Not Detected (Not Detect); Giardia lamblia Not Detected (Not Detect); Norovirus GI/GII Not Detected (Not Detect); Plesiomonsa shigelloides Not Detected (Not Detect); Rotavirus A Not Detected (Not Detect); Salmonella Not Detected (Not Detect); Sapovirus Not Detected (Not Detect); Shiga-like toxin-prod E.coli Not Detected (Not Detect); Shigella/Enteroinvasive E.coli Not Detected (Not Detect); Vibrio Not Detected (Not Detect); Vibrio cholerae Not Detected (Not Detect); Yersinia enterocolitica Not Detected (Not Detect)
--- NOTE | 2018-02-23 17:08 | CM.DPC ---
DCP: continued: Case discussed today in Team Rounds. Dr. Batista stated he was keeping pt again for the day as he was febrile overnight and c-diff was being checked. He expects pt to go home at d/c and continue with care at home with his . P: check in with pt and his as time allows and continue to follow for any d/c needs that may arise.
--- NOTE | 2018-02-23 19:19 | PC.NURSE ---
Evening shift. 1500: Assumed care of pt with safe hand off. Safety checks done. Pt is a/o x3 on 2L NC. Pt complains of mild bloating making it a little harder to breath. Pt spouse report limited oral intake. BG check at 1650 was 67. Pt given some orange juice and encouraged to eat. BG rechecked at 1710 and was 92. states I like to keep is levels around 100.
[2018-02-23] MEDS: TRAZODONE 50 MG TABLET PO (20:12)
[2018-02-23] MEDS: ACETAMINOPHEN 325 MG TABLET 650 MG PO (21:46)
[2018-02-23] MEDS: OXYCODONE IR 5 MG TABLET PO (21:49)
[2018-02-24] VITALS (7 sets, daily range): BP systolic 133–154; BP diastolic 55–65; PULSE 61–72; RESP 16; TEMP 36.9–37.1; O2SAT 91–100
--- NOTE | 2018-02-24 02:55 | PC.NURSE ---
Checked CB @ 0200, 78 only want to drink OJ, refused other snacks. Also refused his glucose recheck, after given some orange juice, will monitor.
[2018-02-24] MEDS: MORPHINE ER 30 MG TABLET PO (05:43)
[2018-02-24 06:50] LABS: Add Manual Diff / Slide Review NO; Basophils Percent Auto 0.3 % (0-2); Eosinophils Percent Auto 0.8 % (2-4); Hematocrit 23.7 % (41-53); Hemoglobin 7.9 g/dL (13.5-17.5); Lymphocytes Percent Auto 14.7 % (25-40); Mean Corpuscular HGB Conc 33.1 % (30-36); Mean Corpuscular Volume 90.6 fL (80-100); Monocytes Percent Auto 8.5 % (3-14); Neutrophils Absolute Auto 6600 /uL (3000-5900); Neutrophils Percent Auto 75.7 % (50-75); Platelet Count 246 X10^3/uL (150-400); Red Blood Cell Count 2.62 X10^6/uL (4.5-5.9); Red Cell Distribution Width 17.9 % (11.6-14.8); White Blood Cell Count 8.7 X10^3/uL (4.5-11.0)
[2018-02-24 06:53] LABS: Alanine Aminotransferase 14 IU/L (21-72); Albumin 3.1 g/dL (3.5-5.0); Albumin Globulin Ratio 0.8 (1.0-2.8); Alkaline Phosphatase 96 U/L (38-126); Aspartate Aminotransferase 15 IU/L (17-59); BUN Creatinine Ratio 14.2 (6-22); Bilirubin Total 0.2 mg/dL (0.2-1.3); Blood Urea Nitrogen 17 mg/dL (9-20); Calcium 8.7 mg/dL (8.4-10.2); Carbon Dioxide 21 mmol/L (22-32); Chloride 105 mmol/L (98-107); Estimated Glomerular Filt Rate > 60.0 mL/min (>60); Globulin 3.9 g/dL (1.7-4.1); Glucose 86 mg/dL (80-110); HEMOLYSIS < 15 (0-50); Phosphorous 3.9 mg/dL (2.3-3.7); Potassium 4.6 mmol/L (3.4-5.1); Sodium 138 mmol/L (137-145)
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
[2018-02-24] MEDS: CHOLECALCIFEROL (VITAMIN D3) 1,000 UNIT TABLET 3000 UNIT PO (09:29)
[2018-02-24] MEDS: BACLOFEN 10 MG TABLET 5 MG PO (09:30)
[2018-02-24] MEDS: ENOXAPARIN 30 MG/0.3 ML SYRINGE SUBCUT (09:32)
[2018-02-24] MEDS: FERROUS GLUCONATE 324 MG TABLET PO (09:32)
[2018-02-24] MEDS: metroNIDAZOLE 500 MG TABLET PO (09:33)
[2018-02-24] MEDS: guaiFENesin ER 600 MG TAB PO (09:33)
[2018-02-24] MEDS: TRIMETH/SULFA 160/800 (DS) TABLET 1 TAB PO (09:34)
[2018-02-24] MEDS: levoFLOXacin 500 MG TABLET PO (09:34)
[2018-02-24] MEDS: OXYCODONE IR 5 MG TABLET PO (09:46)
--- NOTE | 2018-02-24 10:56 | PC.NURSE ---
Discharge: Feels ready to d/c home. Spouse already has everything she needs at home. RA sats 91% or greater. Reviewed d/c information with and pt. Discussed medications. Rx given. Pt has his own motorized w/c. Pt d/c home via auto w/spouse.
== END 2018-02-24 10:45 | disposition home or self-care (01) | DRG 699 ==
LOC: ED 23:08 → AC 02-21 00:45
PROVIDERS: Hospitalist; Admitting Provider Nurse Practitioner Gerontology; Emergency Provider Emergency Medicine; Visit Provider Nurse Practitioner Gerontology
DX: T83.511A Infection and inflammatory reaction due to indwelling urethral catheter, initial encounter (principal); G93.40 Encephalopathy, unspecified; G82.20 Paraplegia, unspecified; B37.41 Candidal cystitis and urethritis; F11.20 Opioid dependence, uncomplicated; T14.8XXS Other injury of unspecified body region, sequela; G89.29 Other chronic pain; N31.9 Neuromuscular dysfunction of bladder, unspecified; B95.2 Enterococcus as the cause of diseases classified elsewhere; L89.322 Pressure ulcer of left buttock, stage 2; I10 Essential (primary) hypertension; G47.33 Obstructive sleep apnea (adult) (pediatric); Z79.4 Long term (current) use of insulin; R19.7 Diarrhea, unspecified; E11.9 Type 2 diabetes mellitus without complications; Z99.3 Dependence on wheelchair; D63.8 Anemia in other chronic diseases classified elsewhere
CPT/HCPCS: 36415; 36591; 71045; 80048; 80053; 81001; 81003; 81015; 82009; 82607; 82746; 82962; 83540; 83550; 83605; 83690; 83735; 84100; 84145; 85025; 87040; 87077; 87086; 87186; 87400; 87449; 87493; 87507; 94760; 96361; 96365; 96375; 99283; 99284; J1450; J1650; J1956; J2060

== ENCOUNTER 2018-04-17 16:10 | Inpatient (IN) | payer MEDICARE, OTHER, SELFPAY ==
[2017-10-30 17:30] VITALS: PULSE 64; RESP 25; O2SAT 100
[2018-02-21 02:49] VITALS: BMI 33.4
[2018-04-17] VITALS (14 sets, daily range): BP systolic 71–163; BP diastolic 34–77; PULSE 74–145; RESP 12–20; TEMP 36.1–36.6; O2SAT 92–100; BMI 34.4
--- NOTE | 2018-04-17 | DI.RAD.S_ITS ---
PROCEDURE: XR KNEE LT 1TO2V INDICATIONS: knee pain TECHNIQUE: 2 views of the knee were acquired. COMPARISON: None. FINDINGS: Bones: No fractures or dislocations but there is osteopenia.. No suspicious bony lesions. Soft tissues: No joint effusion. No suspicious soft tissue calcifications. Atherosclerotic calcification is prominent along the distal thigh and posterior knee. Degenerative knee joint osteoarthritis is quite severe, with near [id number] at the medial compartment. Note on the lateral view is made of a calcification cephalad to the patella in the expected position of the suprapatellar bursal space potentially an intra-articular loose body measuring up to 1.3 cm craniocaudad IMPRESSION: No acute trauma found. Moderately severe to severe degenerative knee joint osteoarthritis. Possible intra-articular loose body seen on the lateral view only in the suprapatellar bursal space area. Prominent atherosclerotic calcifications posterior to the knee and distal thigh. Dictated by: True Colunga M.D. on 04/18/2018 at 6:58 Approved by: True Colunga M.D. on 04/18/2018 at 6:59
--- NOTE | 2018-04-17 16:48 | DI.RAD.S_ITS ---
PROCEDURE: XR CHEST 1V INDICATIONS: suspected sepsis TECHNIQUE: One view of the chest was acquired. COMPARISON: [facility], CR, XR CHEST 1V, 02/22/2018, 6:07. FINDINGS: Surgical changes and devices: Thoracic fusion hardware is present. Lungs and pleura: Lungs are clear. No pleural effusions or pneumothorax. Mediastinum: Mediastinal contours appear normal. Heart size is normal. Bones and chest wall: No suspicious bony lesions. Overlying soft tissues appear unremarkable. IMPRESSION: No acute process. Dictated by: Vira Wilkes M.D. on 04/17/2018 at 17:43 Approved by: Vira Wilkes M.D. on 04/17/2018 at 17:43
[2018-04-17] MEDS: SODIUM CHLORIDE 0.9% 3,401.94 ML 1133.98 ML IV (17:05)
--- NOTE | 2018-04-17 17:11 | ED.FEVER ---
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 I have seen this patient and his here in the emergency department in the past. His states that last night he was at his normal [facility] when she thought that he was becoming sick. She states that this is what happens when he has had pneumonia in the past. She states that overnight and throughout today he has become less active. Has been having problems breathing. Has not been talking as much. She was concerned about a potential infection. She has not tried anything for the symptoms prior to arrival. Related Data Home Medications Medication Instructions Recorded Confirmed baclofen 5 mg PO BID #0 04/22/17 04/17/18 bisacodyl 10 mg NE HSP PRN #0 04/22/17 04/17/18 docusate sodium [DOK] 250 mg PO BID #0 04/22/17 04/17/18 insulin aspart U-100 [Novolog 12 unit SQ TIDWM #0 04/22/17 04/17/18 U-100 Insulin aspart] insulin glargine [Lantus U-100 30 unit SQ HS #0 04/22/17 04/17/18 Insulin] ketoconazole 1 applic TOPICAL SEE INSTRUCTIONS 04/22/17 04/17/18 PRN #0 morphine 30 mg PO Q8H #0 04/22/17 04/17/18 ondansetron HCl 4 mg PO Q6HP PRN #0 04/22/17 04/17/18 sennosides [senna] 2 tab PO QDAYP #0 04/22/17 04/17/18 white petrolatum-mineral oil 454 gm TP QDAYP PRN #0 04/22/17 04/17/18 [Eucerin] cholecalciferol (vitamin D3) 3,000 unit PO DAILY 02/21/18 04/17/18 [Vitamin D3] clonazepam 0.25 mg PO BEDTIME 02/21/18 04/17/18 guaifenesin [Mucinex] 600 mg PO TID 02/21/18 04/17/18 trazodone 50 mg PO BEDTIME 02/21/18 04/17/18 gabapentin 1 cap PO DAILY 04/17/18 04/17/18 losartan 1 tab PO DAILY 04/17/18 04/17/18 oxycodone 5 - 15 mg PO TIDP PRN 04/17/18 04/17/18 venlafaxine 1 cap PO DAILY 04/17/18 04/17/18 Previous Rx's Medication Instructions Recorded ferrous gluconate 324 mg PO QDAY #30 tab 04/28/17 Allergies Allergy/AdvReac Type Severity Reaction Status Date / Time No Known Allergies Allergy Unknown Verified 04/17/18 18:26 Review of Systems Review of Systems Much of the review of systems was provided by the . Constitutional Reports fatigue, Denies fever(s), Denies headache(s), Reports lethargy, Reports malaise and Reports weakness ENT Ears, Nose, Mouth, and Throat: Denies headache(s), Denies sinus pressure and Denies sore throat Cardiovascular Denies chest pain, Denies palpitations and Reports dyspnea Respiratory Reports dyspnea Comments: Coarse breath sounds Gastrointestinal Gastrointestinal: Denies abdominal pain, Denies nausea and Denies vomiting Genitourinary Comments: Indwelling Veloz catheter has had decreased urine output over the past several hours/day Musculoskeletal Comments: No change in musculoskeletal status. Integumentary/Breasts Denies rash Comments: No decubitus ulcer per Neurologic Denies abnormal speech, Reports behavioral changes, Denies headache(s) and Reports weakness Psychiatric Reports behavioral changes Endocrine Reports fatigue and Denies palpitations Hematologic/Lymphatic Denies easy bleeding and Denies easy bruising Allergic/Immunologic Denies urticaria and Denies seasonal rhinorrhea [facility] Social History household members: spouse Smoking Status: Never smoker alcohol intake: never Exam Initial Vital Signs Initial Vital Signs: Vital Signs Temperature 97.8 F 04/17/18 16:29 Pulse Rate 90 04/17/18 16:29 Respiratory Rate 14 04/17/18 16:29 Blood Pressure 108/52 L 04/17/18 16:29 Pulse Oximetry 93 04/17/18 16:29 Const General: well developed, well groomed and ill appearing Orientation: alert, awake, oriented to person, oriented to place and not oriented to time Other: Patient's brother and were at bedside states that he is at his baseline mental status [facility] Head: normal to inspection and normocephalic Chest Chest: normal inspection of the chest Resp Effort & Inspection: not labored, no retractions and tachypneic Auscultation: rhonchi and wheezes Cardio Rate: regular rate Rhythm: regular rhythm Pulses: radial pulses present GI Inspection: non-distended Palpation: No firm and No tender Other: Indwelling Veloz catheter in place Skin Other: No decubitus ulcers. Has 2 well-healing heel ulcers without signs of erythema Neuro General: alert and awake Other: Patient is that his baseline neurologic status both mentally and physically per the and son who were at bedside Extrem Other: Patient able to move bilateral upper extremities unable to move bilateral lower extremities. Psych Appearance: grossly normal and well kempt Course Orders Ordered: ED Orders 04/17/18 16:48 XR chest 1V Stat 04/17/18 17:00 FLU A and B [Influenza A and B by PCR Rapid] Stat 04/17/18 17:10 Blood Culture Stat Complete Blood Count AUTO DIFF Stat Comprehensive Metabolic Panel Stat Lactate (Lactic Acid) Stat Lipase Stat Partial Thromboplastin Time Stat Procalcitonin Stat Prothrombin Time INR Stat 04/17/18 18:33 EKG-12 Lead Stat 04/17/18 18:42 Packed Cells Stat Type and Screen Stat 04/17/18 18:47 Education, smoking cessation ONGOING 04/17/18 19:01 Urinalysis and Microscopic Stat Dextrose (D50w) 25 gm IV PRN PRN PRN Reason: Hypoglycemia Enoxaparin Sodium (Lovenox) 40 mg SUBCUT DAILY WILLY Sodium Chloride (Normal Saline 0.9%) 3,401.94 mls @ 1,133.98 mls/hr 30 ml/kg infuse over 3 hr (3401.94 ml) IV CONT WILLY Last Infusion: 04/17/18 18:51 Dose: 0 mls/hr Admin: 04/17/18 17:05 Dose: 1,133.98 mls/hr Norepinephrine Bitartrate 4 mg (/ Dextrose) 254 mls @ 19.05 mls/hr IV TITRATE WILLY; Protocol Last Titration: 04/17/18 18:36 Dose: 5 mcg/min, 19.05 mls/hr Titration: 04/17/18 18:28 Dose: 6 mcg/min, 22.86 mls/hr Admin: 04/17/18 18:09 Dose: 5 mcg/min, 19.05 mls/hr Sodium Chloride (Normal Saline 0.9%) 1,000 mls @ 150 mls/hr IV CONT WILLY Last Admin: 04/17/18 18:10 Dose: 150 mls/hr Lactated Ringer's (Lactated Ringers) 1,000 mls @ 200 mls/hr IV CONT WILLY Last Admin: 04/17/18 18:53 Dose: 200 mls/hr Meropenem 2 gm/ Sodium (Chloride) 100 mls @ 200 mls/hr IV Q8HR WILLY Sodium Chloride/ Sodium (Chloride) 2,000 mls @ 500 mls/hr IV NOW ONE Stop: 04/18/18 02:59 Insulin Aspart (Novolog Flexpen) 0 unit SUBCUT ACHS WILLY; Protocol Discontinued Medications Sodium Chloride (Normal Saline 0.9%) 1,000 mls @ 1,000 mls/hr IV BOLUS ONE Stop: 04/17/18 17:47 Last Infusion: 04/17/18 17:50 Dose: 0 mls/hr Admin: 04/17/18 17:28 Dose: 1,000 mls/hr Levofloxacin (Levaquin) 750 mg in 150 mls @ 100 mls/hr IV NOW ONE Stop: 04/17/18 18:40 Last Infusion: 04/17/18 18:51 Dose: 0 mls/hr Admin: 04/17/18 17:16 Dose: 100 mls/hr Piperacillin/Tazobactam/Dextrose (Zosyn) 4.5 gm in 100 mls @ 200 mls/hr IV NOW ONE Stop: 04/17/18 18:08 Last Infusion: 04/17/18 18:30 Dose: 0 mls/hr Admin: 04/17/18 17:57 Dose: 200 mls/hr Vital Signs - 8 hr 04/17/18 16:29 04/17/18 17:00 04/17/18 17:30 Temperature 97.8 F Pulse Rate 90 82 86 Respiratory Rate 14 16 20 Blood Pressure 108/52 L Blood Pressure [Left Arm] 72/37 L 71/34 L Pulse Oximetry 93 100 100 04/17/18 18:00 04/17/18 18:35 Temperature Pulse Rate 74 145 H Respiratory Rate 12 12 Blood Pressure Blood Pressure [Left Arm] 83/54 L 110/77 Pulse Oximetry 100 96 MDM - Fever Medical Records Attestation: I reviewed the patient's medical records. Lab Data Attestation: I reviewed the patient's lab results. Result diagrams: 04/17/18 17:10 04/17/18 17:10 Lab Results 04/17/18 04/17/18 04/17/18 Range/Units 17:00 17:10 17:10 WBC 47.2 H* (4.5-11.0) X10^3/uL RBC 2.50 L (4.5-5.9) X10^6/uL Hgb 7.0 L (13.5-17.5) g/dL Hct 22.8 L (41-53) % MCV 91.3 (80-100) fL MCH 28.2 (26-34) PG MCHC 30.9 (30-36) % RDW 17.4 H (11.6-14.8) % Plt Count 332 (150-400) X10^3/uL Neut % (Auto) Not Reportable Lymph % (Auto) Not Reportable Ferry % (Auto) Not Reportable Eos % (Auto) Not Reportable Baso % (Auto) Not Reportable Lymph # (Auto) Not Reportable Ferry # (Auto) Not Reportable Baso # (Auto) Not Reportable Total Counted 100 Seg Neutrophils % 89.0 H (38-70) % Band Neutrophils % 1.0 L (3-7) % Lymphocytes % (Manual) 4.0 L (25-45) % Monocytes % (Manual) 6.0 (2-11) % Neutrophils # (Manual) 65383 H (2648-8415) /uL Smudge Cells 1+ H RBC Morphology See below Hypochromasia 1+ H Anisocytosis 2+ H PT 18.0 H (10.1-12.7) SECONDS INR 1.5 H (0.9-1.3) APTT 25 L (26.4-36.2) SECONDS Sodium (137-145) mmol/L Potassium (3.4-5.1) mmol/L Chloride (98-107) mmol/L Carbon Dioxide (22-32) mmol/L BUN (9-20) mg/dL Creatinine (0.66-1.25) mg/dL Estimated GFR (>60) mL/min BUN/Creatinine Ratio (6-22) Glucose (80-110) mg/dL Lactate (0.7-2.1) mmol/L Calcium (8.4-10.2) mg/dL Total Bilirubin (0.2-1.3) mg/dL AST (17-59) IU/L ALT (21-72) IU/L Alkaline Phosphatase (38-126) U/L Total Protein (6.3-8.2) g/dL Albumin (3.5-5.0) g/dL Globulin (1.7-4.1) g/dL Albumin/Globulin Ratio (1.0-2.8) Lipase (23-300) U/L Procalcitonin (<0.5) ng/mL Influenza A & B (PCR) Negative (Negative) 04/17/18 04/17/18 04/17/18 Range/Units 17:10 17:10 17:10 WBC (4.5-11.0) X10^3/uL RBC (4.5-5.9) X10^6/uL Hgb (13.5-17.5) g/dL Hct (41-53) % MCV (80-100) fL MCH (26-34) PG MCHC (30-36) % RDW (11.6-14.8) % Plt Count (150-400) X10^3/uL Neut % (Auto) Lymph % (Auto) Ferry % (Auto) Eos % (Auto) Baso % (Auto) Lymph # (Auto) Ferry # (Auto) Baso # (Auto) Total Counted Seg Neutrophils % (38-70) % Band Neutrophils % (3-7) % Lymphocytes % (Manual) (25-45) % Monocytes % (Manual) (2-11) % Neutrophils # (Manual) (5906-5525) /uL Smudge Cells RBC Morphology Hypochromasia Anisocytosis PT (10.1-12.7) SECONDS INR (0.9-1.3) APTT (26.4-36.2) SECONDS Sodium 134 L (137-145) mmol/L Potassium 4.8 (3.4-5.1) mmol/L Chloride 98 (98-107) mmol/L Carbon Dioxide 23 (22-32) mmol/L BUN 29 H (9-20) mg/dL Creatinine 1.60 H (0.66-1.25) mg/dL Estimated GFR 43.2 L (>60) mL/min BUN/Creatinine Ratio 18.1 (6-22) Glucose 219 H (80-110) mg/dL Lactate 1.6 (0.7-2.1) mmol/L Calcium 8.4 (8.4-10.2) mg/dL Total Bilirubin 1.2 (0.2-1.3) mg/dL AST 41 (17-59) IU/L ALT 27 (21-72) IU/L Alkaline Phosphatase 134 H (38-126) U/L Total Protein 7.6 (6.3-8.2) g/dL Albumin 3.3 L (3.5-5.0) g/dL Globulin 4.3 H (1.7-4.1) g/dL Albumin/Globulin Ratio 0.8 L (1.0-2.8) Lipase 15 L (23-300) U/L Procalcitonin 5.60 H (<0.5) ng/mL Influenza A & B (PCR) (Negative) Imaging Data Chest x-ray: Radiologist's impression: [address] [address] XRay Report Signed Patient: Brent Taylor KMR#: [id number] : 1950Acct:[id number] Age/Sex: 67 / MDate of Service: 04/17/18 Loc: ED Accession Number: [id number] Procedure: XR chest 1V Ordering Provider: Jim Ojeda D.O. PROCEDURE: XR CHEST 1V INDICATIONS: suspected sepsis TECHNIQUE: One view of the chest was acquired. COMPARISON: [facility], , XR CHEST 1V, 02/22/2018, 6:07. FINDINGS: Surgical changes and devices: Thoracic fusion hardware is present. Lungs and pleura: Lungs are clear. No pleural effusions or pneumothorax. Mediastinum: Mediastinal contours appear normal. Heart size is normal. Bones and chest wall: No suspicious bony lesions. Overlying soft tissues appear unremarkable. IMPRESSION: No acute process. Dictated by: Vira Wilkes M.D. on 04/17/2018 at 17:43 Approved by: Vira Wilkes M.D. on 04/17/2018 at 17:43 ECG Data Attestation: I personally reviewed and interpreted this ECG as follows: Prior ECG tracings: not available for review Interpretation: Sinus tachycardia Regular axis No ST T wave changes MDM Narrative Medical decision making narrative: Patient arrived hypoxic which improved with oxygen by nasal cannula. Was also hypotensive. He does have an elevated white blood cell count. Normal lactate. But does have an elevated procalcitonin. I also feel like his hypotension was most likely related to under resuscitation of fluids given his decreased urine output and decreased oral intake over the past several hours/days. After 2 L of normal saline his blood pressure did not improve so norepinephrine was started through a peripheral 18 gauge IV. This did improve his blood pressure. Patient was at his baseline neurologic status both physically and mentally per his who is at bedside. Antibiotics were empirically started for presumed pneumonia. The chest x-ray does not definitively show a pneumonia however clinically I feel like this is the most likely source. Was also some concern about a urinary tract infection given his indwelling Veloz catheter. Zosyn was also started. Discussed the case with Dr Collazo with Internal Medicine who will admit the patient to the ICU. Discussed the admission with the patient and his who both expressed understanding and agreement. Prior to the patient being transferred to the floor he became tachycardic. This was a sinus tachycardia. The Levophed was decreased slightly. Will switch his fluids to lactated Ringer's. Patient did receive 30 cc/kilos of fluids per the sepsis protocol. Blood cultures were obtained. Critical Care Time Critical Care Time: Yes Total Critical Care Time: 45 Attestation: The high probability of a clinically significant, sudden or life threatening deterioration of the cardiovascular, respiratory system(s) required my full and direct attention, intervention and personal management. The aggregate critical care time was 45 minutes. This time is in addition to time spent performing reported procedures but includes the following: [] Data Review and interpretation [] Patient assessment and monitoring of vital signs [] Documentation [] Medication orders and management Discharge Plan Departure Patient Disposition: Admitted As Inpatient Clinical Impression: Pneumonia, Sepsis Admit Date/Time: 04/17/18 18:47 Admit Provider: Karina Collazo
[2018-04-17] MEDS: levoFLOXacin 750 MG/150 ML PIGGYBACK 100 MG IV (17:16)
[2018-04-17] MEDS: SODIUM CHLORIDE 0.9% 1,000 ML 1000 ML IV (17:28)
[2018-04-17 17:30] LABS: Hematocrit 22.8 % (41-53); Mean Corpuscular HGB Conc 30.9 % (30-36); Mean Corpuscular Hemoglobin 28.2 PG (26-34); Mean Corpuscular Volume 91.3 fL (80-100); Platelet Count 332 X10^3/uL (150-400); Red Cell Distribution Width 17.4 % (11.6-14.8)
[2018-04-17 17:35] LABS: Add Manual Diff / Slide Review YES; White Blood Cell Count 47.2 X10^3/uL (4.5-11.0)
[2018-04-17 17:37] LABS: Lactate (Lactic Acid) 1.6 mmol/L (0.7-2.1)
[2018-04-17 17:44] LABS: Influenza A and B by PCR Rapid Negative (Negative)
[2018-04-17 17:47] LABS: Alanine Aminotransferase 27 IU/L (21-72); Albumin 3.3 g/dL (3.5-5.0); Albumin Globulin Ratio 0.8 (1.0-2.8); Alkaline Phosphatase 134 U/L (38-126); Aspartate Aminotransferase 41 IU/L (17-59); BUN Creatinine Ratio 18.1 (6-22); Bilirubin Total 1.2 mg/dL (0.2-1.3); Blood Urea Nitrogen 29 mg/dL (9-20); Calcium 8.4 mg/dL (8.4-10.2); Carbon Dioxide 23 mmol/L (22-32); Chloride 98 mmol/L (98-107); Estimated Glomerular Filt Rate 43.2 mL/min (>60); Globulin 4.3 g/dL (1.7-4.1); Glucose 219 mg/dL (80-110); HEMOLYSIS < 15 (0-50); Lipase 15 U/L (23-300); Potassium 4.8 mmol/L (3.4-5.1); Sodium 134 mmol/L (137-145); Total Protein 7.6 g/dL (6.3-8.2)
[2018-04-17 17:55] LABS: INR 1.5 (0.9-1.3)
[2018-04-17] MEDS: PIPERACILLIN-TAZO 4.5 GM/100 ML FROZ.PIGGY IV (17:57)
[2018-04-17 17:58] LABS: PTT Partial Thromboplastin Tim 25 SECONDS (26.4-36.2)
[2018-04-17] MEDS: NOREPINEPHRINE 4 MG in DEXTROSE 5% IN WATER 250 ML 19.05 ML IV (18:09)
[2018-04-17] MEDS: SODIUM CHLORIDE 0.9% 1,000 ML 150 ML IV (18:10)
[2018-04-17 18:29] LABS: Anisocytosis 2+; Hypochromasia 1+; Neutrophils Absolute Manual 42480 /uL (3000-5900); Total Cells Counted 100
[2018-04-17 18:30] LABS: Smudge Cells 1+
--- NOTE | 2018-04-17 18:37 | PC.NURSE ---
Pt converted to a rapid rhythm, 145 current HR, appears regular. Dr Ojeda is aware. Levo rate reduced BP is 110/77.
[2018-04-17] MEDS: LACTATED RINGERS 1,000 ML 200 ML IV (18:53)
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
[2018-04-17 19:08] LABS: Bacteria Urine None Seen
[2018-04-17 19:12] LABS: Appearance Urine UA CLOUDY; Bilirubin Urine UA NEGATIVE (NEGATIVE); Color Urine UA YELLOW; Glucose Urine UA NEGATIVE (Negative); Ketones Urine UA NEGATIVE (NEGATIVE); Leukocyte Esterase Urine UA 2+ (NEGATIVE); Nitrite Urine UA NEGATIVE (Negative); Occult Blood Urine UA 1+ (Negative); Protein Urine UA 1+ (Negative); Specific Gravity Urine UA 1.015 (1.000-1.035)
[2018-04-17 19:18] LABS: Hematocrit 25.1 % (41-53); Hemoglobin 7.6 g/dL (13.5-17.5)
[2018-04-17 19:45] LABS: Amorphous Sediment Urine 2+; Culture Indicated Urine Specimen Cultured; Granular Casts Urine 1-5/LPF; RBC Urine 1-5/HPF (0-5/HPF); WBC Urine 10-30/HPF (0-5/HPF)
--- NOTE | 2018-04-17 21:06 | PC.NURSE ---
1999 - Patient admitted to room 104. Brought to room on stretcher by nursing staff. Transferred to bed using slider board. Patient alert and responsive with pleasant affect. Denies pain at this time. Able to follow directions and answer questions appropriately. Levophed gtt running at 5mcg/min from ED. IV fluids running per orders. Blood consent obtained from patient and spouse. 2029 - Clarified patient's fluid orders with Dr. Collazo. Dr. Collazo stated that patient's NS bolus should be stopped at 2300 and to remain on the LR as ordered after that.
[2018-04-17] MEDS: MEROPENEM 2 GM in SODIUM CHLORIDE 0.9% 100 ML 200 ML IV (22:03)
[2018-04-17] MEDS: INSULIN ASPART 100 UNIT/ML INSULN PEN SUBCUT (22:04)
[2018-04-18] VITALS (26 sets, daily range): BP systolic 81–139; BP diastolic 39–89; PULSE 71–109; RESP 9–21; TEMP 36.1–37; O2SAT 91–98
[2018-04-18] MEDS: LACTATED RINGERS 1,000 ML 200 ML IV ×2 (00:56→06:06)
[2018-04-18] MEDS: HYDROMORPHONE 0.5 MG INJ IV ×2 (01:51→15:02)
[2018-04-18] MEDS: INSULIN ASPART 100 UNIT/ML INSULN PEN SUBCUT ×5 (01:51→16:59)
[2018-04-18] MEDS: INSULIN GLARGINE 100 UNIT/ML 3ML PEN 10 UNIT SUBCUT (01:57)
[2018-04-18 05:32] LABS: Hemoglobin 9.2 g/dL (13.5-17.5); Mean Corpuscular Hemoglobin 28.6 PG (26-34); Mean Corpuscular Volume 89.2 fL (80-100); Platelet Count 336 X10^3/uL (150-400); Red Blood Cell Count 3.23 X10^6/uL (4.5-5.9); Red Cell Distribution Width 16.9 % (11.6-14.8)
[2018-04-18 05:33] LABS: BUN Creatinine Ratio 21.5 (6-22); Blood Urea Nitrogen 28 mg/dL (9-20); Calcium 8.1 mg/dL (8.4-10.2); Carbon Dioxide 21 mmol/L (22-32); Chloride 105 mmol/L (98-107); Estimated Glomerular Filt Rate 54.9 mL/min (>60); Glucose 185 mg/dL (80-110); HEMOLYSIS < 15 (0-50); Potassium 4.4 mmol/L (3.4-5.1); Sodium 135 mmol/L (137-145)
[2018-04-18 05:47] LABS: White Blood Cell Count 41.9 X10^3/uL (4.5-11.0)
[2018-04-18 05:48] LABS: Add Manual Diff / Slide Review YES; Hematocrit 28.8 % (41-53)
[2018-04-18] MEDS: HYDROMORPHONE 0.5 MG INJ 1 MG IV (06:05)
[2018-04-18 07:11] LABS: Anisocytosis 1+; Neutrophils Absolute Manual 40224 /uL (3000-5900); Total Cells Counted 100
[2018-04-18] MEDS: MEROPENEM 2 GM in SODIUM CHLORIDE 0.9% 100 ML 200 ML IV ×3 (07:36→22:28)
--- NOTE | 2018-04-18 08:52 | PM.PN.1 ---
Subjective Interval history: Brent Taylor is a 67-year-old paraplegic gentleman with a neurogenic bladder with chronic indwelling Veloz catheter for the last 8 years and pneumonia/urosepsis infections 3-4 times per year who presented for increased confusion, decreased urinary output, febrile who was admitted for acute sepsis secondary to probable UTI from chronic indwelling Veloz catheter. The patient is resting in bed comfortably with CPAP in place. He denies pain. He is alert and conversant. He denies headache, chest pain, shortness of breath, abdominal pain, nausea, vomiting, fever, or chills. He has a chronic indwelling Veloz catheter that was changed yesterday. His Veloz catheter is changed every 4 weeks by his . He is due for bowel movement which requires suppository and digital stimulation. He is paraplegic but is able to feel his lower extremities. Exam Vital Signs (past 8 hours): - 04/18/18 01:00 04/18/18 01:05 04/18/18 01:07 Temperature 97.2 F L 97.4 F L Pulse Rate 73 75 72 Respiratory Rate 13 13 13 Blood Pressure 114/55 L 107/51 L 110/48 L Pulse Oximetry 96 04/18/18 02:00 04/18/18 03:00 04/18/18 04:00 Temperature Pulse Rate 81 78 73 Respiratory Rate 9 L 13 Blood Pressure 115/89 96/42 L 104/46 L Pulse Oximetry 95 93 95 04/18/18 05:00 04/18/18 06:00 04/18/18 07:00 Temperature 98.6 F Pulse Rate 84 73 79 Respiratory Rate 15 15 Blood Pressure 104/39 L 128/52 L 113/50 L Pulse Oximetry 96 96 96 04/18/18 08:00 Temperature 97.8 F Pulse Rate 80 Respiratory Rate 15 Blood Pressure 127/51 L Pulse Oximetry 97 Oxygen Delivery Method CPAP Oxygen Flow Rate 0 Narrative Exam Narrative: General: Older gentleman lying in bed and in no acute distress, well-developed, well-nourished, appropriately interactive. HEENT: Normocephalic, atraumatic. External ears without defect. Pupils equal, round, and reactive to light. Anicteric sclerae, moist conjunctivae, and no lid lag. CPAP in place. Neck: Supple with full range of motion. No lymphadenopathy or thyromegaly. Cardiovascular: Regular rate and rhythm without murmurs, rubs, or gallops appreciated. Pulmonary: Clear to auscultation bilaterally without crackles, wheezes, or rhonchi. Normal respiratory effort with no use of accessory muscles. Abdomen: Soft, bowel sounds present, nontender, nondistended. No hepatosplenomegaly or masses appreciated. Extremities: No clubbing, cyanosis, or edema. Left knee pain with no erythema or swelling appreciated. Skin: Normal temperature, turgor, and texture; no rash, ulcers, or subcutaneous nodules appreciated. Neurological: Paraplegic and unable to move bilateral lower extremity Psychiatric: Normal mood and affect. Alert and oriented to person, place, and time. Objective Labs Result Diagrams: 04/18/18 05:06 04/18/18 05:06 Labs: Laboratory Results - last 24 hr 04/17/18 04/17/18 04/17/18 17:00 17:10 17:10 WBC 47.2 H* RBC 2.50 L Hgb 7.0 L Hct 22.8 L MCV 91.3 MCH 28.2 MCHC 30.9 RDW 17.4 H Plt Count 332 Neut % (Auto) Not Reportable Lymph % (Auto) Not Reportable [place] % (Auto) Not Reportable Eos % (Auto) Not Reportable Baso % (Auto) Not Reportable Lymph # (Auto) Not Reportable [place] # (Auto) Not Reportable Baso # (Auto) Not Reportable Total Counted 100 Seg Neutrophils % 89.0 H Band Neutrophils % 1.0 L Lymphocytes % (Manual) 4.0 L Monocytes % (Manual) 6.0 Neutrophils # (Manual) 82074 H Smudge Cells 1+ H RBC Morphology See below Hypochromasia 1+ H Anisocytosis 2+ H PT 18.0 H INR 1.5 H APTT 25 L Sodium Potassium Chloride Carbon Dioxide BUN Creatinine Estimated GFR BUN/Creatinine Ratio Glucose Lactate Calcium Total Bilirubin AST ALT Alkaline Phosphatase Total Protein Albumin Globulin Albumin/Globulin Ratio Lipase Procalcitonin Urine Color Urine Appearance Urine pH Ur Specific Harmon Urine Protein Urine Glucose (UA) Urine Ketones Urine Occult Blood Urine Nitrate Urine Bilirubin Urine Urobilinogen Ur Leukocyte Esterase Urine RBC Urine WBC Amorphous Sediment Urine Bacteria Granular Casts Ur Culture Indicated? Nasal Screen MRSA (PCR) Influenza A & B (PCR) Negative Blood Type Antibody Screen Crossmatch 04/17/18 04/17/18 04/17/18 17:10 17:10 17:10 WBC RBC Hgb Hct MCV MCH MCHC RDW Plt Count Neut % (Auto) Lymph % (Auto) [place] % (Auto) Eos % (Auto) Baso % (Auto) Lymph # (Auto) [place] # (Auto) Baso # (Auto) Total Counted Seg Neutrophils % Band Neutrophils % Lymphocytes % (Manual) Monocytes % (Manual) Neutrophils # (Manual) Smudge Cells RBC Morphology Hypochromasia Anisocytosis PT INR APTT Sodium 134 L Potassium 4.8 Chloride 98 Carbon Dioxide 23 BUN 29 H Creatinine 1.60 H Estimated GFR 43.2 L BUN/Creatinine Ratio 18.1 Glucose 219 H Lactate 1.6 Calcium 8.4 Total Bilirubin 1.2 AST 41 ALT 27 Alkaline Phosphatase 134 H Total Protein 7.6 Albumin 3.3 L Globulin 4.3 H Albumin/Globulin Ratio 0.8 L Lipase 15 L Procalcitonin 5.60 H Urine Color Urine Appearance Urine pH Ur Specific Harmon Urine Protein Urine Glucose (UA) Urine Ketones Urine Occult Blood Urine Nitrate Urine Bilirubin Urine Urobilinogen Ur Leukocyte Esterase Urine RBC Urine WBC Amorphous Sediment Urine Bacteria Granular Casts Ur Culture Indicated? Nasal Screen MRSA (PCR) Influenza A & B (PCR) Blood Type Antibody Screen Crossmatch 04/17/18 04/17/18 04/17/18 18:57 19:05 19:05 WBC RBC Hgb 7.6 L Hct 25.1 L MCV MCH MCHC RDW Plt Count Neut % (Auto) Lymph % (Auto) [place] % (Auto) Eos % (Auto) Baso % (Auto) Lymph # (Auto) [place] # (Auto) Baso # (Auto) Total Counted Seg Neutrophils % Band Neutrophils % Lymphocytes % (Manual) Monocytes % (Manual) Neutrophils # (Manual) Smudge Cells RBC Morphology Hypochromasia Anisocytosis PT INR APTT Sodium Potassium Chloride Carbon Dioxide BUN Creatinine Estimated GFR BUN/Creatinine Ratio Glucose Lactate Calcium Total Bilirubin AST ALT Alkaline Phosphatase Total Protein Albumin Globulin Albumin/Globulin Ratio Lipase Procalcitonin Urine Color Yellow Urine Appearance Cloudy Urine pH 5.0 Ur Specific [place]on 1.015 Urine Protein 1+ H Urine Glucose (UA) Negative Urine Ketones Negative Urine Occult Blood 1+ H Urine Nitrate Negative Urine Bilirubin Negative Urine Urobilinogen 1.0 Ur Leukocyte Esterase 2+ H Urine RBC 1-5/hpf Urine WBC 10-30/hpf H Amorphous Sediment 2+ Urine Bacteria None seen Granular Casts 1-5/lpf Ur Culture Indicated? Specimen cultured Nasal Screen MRSA (PCR) Influenza A & B (PCR) Blood Type A Positive Antibody Screen Negative Crossmatch See Detail 04/17/18 04/18/18 04/18/18 19:46 05:06 05:06 WBC 41.9 H* RBC 3.23 L Hgb 9.2 L Hct 28.8 L MCV 89.2 MCH 28.6 MCHC 32.0 RDW 16.9 H Plt Count 336 Neut % (Auto) Not Reportable Lymph % (Auto) Not Reportable [place] % (Auto) Not Reportable Eos % (Auto) Not Reportable Baso % (Auto) Not Reportable Lymph # (Auto) Not Reportable [place] # (Auto) Not Reportable Baso # (Auto) Not Reportable Total Counted 100 Seg Neutrophils % 90.0 H Band Neutrophils % 6.0 Lymphocytes % (Manual) 4.0 L Monocytes % (Manual) Neutrophils # (Manual) 30979 H Smudge Cells RBC Morphology Not Reportable Hypochromasia Anisocytosis 1+ H PT INR APTT Sodium 135 L Potassium 4.4 Chloride 105 Carbon Dioxide 21 L BUN 28 H Creatinine 1.30 H Estimated GFR 54.9 L BUN/Creatinine Ratio 21.5 Glucose 185 H Lactate Calcium 8.1 L Total Bilirubin AST ALT Alkaline Phosphatase Total Protein Albumin Globulin Albumin/Globulin Ratio Lipase Procalcitonin Urine Color Urine Appearance Urine pH Ur Specific [place] Urine Protein Urine Glucose (UA) Urine Ketones Urine Occult Blood Urine Nitrate Urine Bilirubin Urine Urobilinogen Ur Leukocyte Esterase Urine RBC Urine WBC Amorphous Sediment Urine Bacteria Granular Casts Ur Culture Indicated? Nasal Screen MRSA (PCR) Negative for mrsa Influenza A & B (PCR) Blood Type Antibody Screen Crossmatch Assessment & Plan Plan: Assessment/Plan Narrative: Brent Taylor is a 67-year-old paraplegic gentleman with a neurogenic bladder with chronic indwelling Veloz catheter for the last 8 years and pneumonia/urosepsis infections 3-4 times per year who presented for increased confusion, decreased urinary output, febrile who was admitted for acute sepsis secondary to probable UTI from chronic indwelling Veloz catheter. 1. Acute septic shock, present on admission. Resolved. -Patient presented with confusion, febrile, profound leukocytosis, hypotension not responsive to IV fluids started on Levophed with infectious source UTI. -Early goal-directed therapy med including: IV fluids and broad-spectrum antibiotics with meropenem. -Titrated off Levophed over the course of the morning. 2. Acute UTI, present on admission. Active. -Patient presented with confusion, febrile, and decreased urine output with history of recurrent UTI. -Urine culture pending identification and sensitivities. -Blood culture x2 pending. -Chest x-ray did not demonstrate any acute cardiopulmonary. -Patient with profound leukocytosis of 47 on admission with procalcitonin 5.6. Repeat -Continue meropenem 2 g every 12 hr and will narrow spectrum once urine culture and sensitivities have resulted. Received levofloxacin x1 in ED. 3. Acute kidney injury, present on admission. Resolving. -Baseline creatinine 1.2. Initial creatinine 1.6. -Avoid nephrotoxin agents. -Continue IV fluids with NS at 100 mL/hr. 4. Anemia of chronic disease, present on admission. Active. -After closer examination of patient's hemoglobin chronically low in the 7-8 range. -His hemoglobin was 7.0, after hydration it was 7.6. He was transfused with 2 units PRBC. An acute GI loss source is not clear. 5. Diabetes mellitus type 2, insulin using, present on admission. Stable. -Restarted patient's usual insulin regimen with Lantus 30 units daily at bedtime, NovoLog 12 units t.i.d. with meals and low-dose correctional scale insulin at this time. 6. Paraplegia, present on admission. Stable. -This is stable and is contributing to his minimal sacral and heel pressure ulcers. Pressure offloading has been done with soft heel boots and frequent turning at home and will be continued here. -His family are in close attendance and his obviously has been managing this as well as possible. 7. Hypertension, chronic, present on admission. Stable. -Holding losartan while fluid resuscitation and Levophed are being used. 8. Atonic bladder, chronic, present on admission. Stable. -Veloz catheter was changed in the emergency department. Disposition: Patient will likely be discharged home in 1-2 days depending upon course of treatment and improvement in overall infectious picture. Brent Taylor is a 67-year-old paraplegic gentleman with a neurogenic bladder with chronic indwelling Veloz catheter for the last 8 years and pneumonia/urosepsis infections 3-4 times per year who presented for increased confusion, decreased urinary output, febrile who was admitted for acute sepsis secondary to probable UTI from chronic indwelling Veloz catheter. 1. Acute sepsis, present on admission. Resolved. -Patient presented with confusion, febrile, and decreased urinary output with hypotension, leukocytosis, and source of infection UTI. 2. Acute urinary tract infection, secondary to chronic indwelling Veloz catheter, present on admission. Active. -Patient presented with increasing confusion, febrile, and decreased urinary output with chronic indwelling Veloz catheter and history of recurrent UTI. -Continue meropenem 2 g every 12 hr. Received Levaquin in ED. Begin on meropenem IV. He received a dose of Levaquin in the emergency department. The white blood count of 47.2 will be followed daily. Continue IV fluid bolus until blood pressure is recovered. Currently also on Levophed. He is requiring intensive care unit nursing care. Urine culture and blood cultures are pending. (2) Sepsis: Problem details: The source of the sepsis appears to be urinary but pneumonia is not entirely ruled out. He certainly could have an infiltrate not showing up on the chest x-ray as yet due to the dehydration. He is receiving Levaquin and then meropenem. He is on IV fluid boluses, now on 4-6 L total with Levophed added in the emergency department after the 1st 2-3 L. his blood pressure is up into the systolic 90s and he is more alert. His urinary output has been minimal. Qualifiers: Sepsis type: sepsis due to unspecified organism Qualified Code(s): A41.9 - Sepsis, unspecified organism Current visit: Yes Status: Acute (3) Anemia: Problem details: His hemoglobin was 7.0, after hydration it was 7.6. He is going to be transfused with 2 units of packed red blood cells. An acute GI loss source is not clear. We will need to investigate his most recent hemoglobin to establish how far off his usual trend he has. Qualifiers: Anemia type: unspecified type Bone marrow failure anemia type: Chronic kidney disease stage: Folate deficiency anemia type: Hemolytic anemia type: Iron deficiency anemia type: Other causes of anemia: Vitamin B12 deficiency anemia type: Qualified Code(s): D64.9 - Anemia, unspecified Current visit: No Status: Acute (4) Diabetes: Problem details: His usual insulin will be held pending return to oral intake status and he will be covered with a short-acting correctional scale insulin at this time. Qualifiers: Chronic kidney disease stage: Diabetes mellitus complication detail: Diabetes mellitus complication status: with unspecified complications Diabetes mellitus assisted insulin use: with assisted use Diabetes mellitus macular edema: Diabetes mellitus type: other specified (including RENEA) Diabetic retinopathy severity: Laterality: Proliferative retinopathy type: Qualified Code(s): E13.8 - Other specified diabetes mellitus with unspecified complications; Z79.4 - exterminator termite (current) use of insulin Current visit: No Status: Acute (5) Paraplegia: Problem details: This is stable and is contributing to his minimal sacral and heel pressure ulcers. Pressure offloading has been done with soft heel boots and frequent turning at home and will be continued here. Current visit: No Status: Acute (6) Hypertension: Problem details: Holding losartan while fluid resuscitation and Levophed are being used. Current visit: Yes Status: Acute (7) Atonic bladder: Problem details: Veloz catheter was changed in the emergency department. Current visit: Yes Status: Acute (8) Insulin dependent diabetes mellitus: Problem details: Resume Lantus and Aspart home regimen when able to eat. Current visit: Yes Status: Acute (9) Paraplegic spinal paralysis: Problem details: This is at baseline. His family are in close attendance and his obviously has been managing this as well as possible. Current visit: Yes Status: Acute
--- NOTE | 2018-04-18 08:57 | P.PN_ITS ---
Subjective Interval history: Brent Taylor is a 67-year-old paraplegic gentleman with a neurogenic bladder with chronic indwelling Veloz catheter for the last 8 years and pneumonia/ urosepsis infections 3-4 times per year who presented for increased confusion, decreased urinary output, febrile who was admitted for acute sepsis secondary to probable UTI from chronic indwelling Veloz catheter. The patient is resting in bed comfortably with CPAP in place. He denies pain. He is alert and conversant. He denies headache, chest pain, shortness of breath , abdominal pain, nausea, vomiting, fever, or chills. He has a chronic indwelling Veloz catheter that was changed yesterday. His Veloz catheter is changed every 4 weeks by his . He is due for bowel movement which requires suppository and digital stimulation. He is paraplegic but is able to feel his lower extremities. Exam Vital Signs (past 8 hours): - 04/18/18 01:00 04/18/18 01:05 04/18/18 01:07 Temperature 97.2 F L 97.4 F L Pulse Rate 73 75 72 Respiratory Rate 13 13 13 Blood Pressure 114/55 L 107/51 L 110/48 L Pulse Oximetry 96 04/18/18 02:00 04/18/18 03:00 04/18/18 04:00 Temperature Pulse Rate 81 78 73 Respiratory Rate 9 L 13 Blood Pressure 115/89 96/42 L 104/46 L Pulse Oximetry 95 93 95 04/18/18 05:00 04/18/18 06:00 04/18/18 07:00 Temperature 98.6 F Pulse Rate 84 73 79 Respiratory Rate 15 15 Blood Pressure 104/39 L 128/52 L 113/50 L Pulse Oximetry 96 96 96 04/18/18 08:00 Temperature 97.8 F Pulse Rate 80 Respiratory Rate 15 Blood Pressure 127/51 L Pulse Oximetry 97 Oxygen Delivery Method CPAP Oxygen Flow Rate 0 Narrative Exam Narrative: General: Older gentleman lying in bed and in no acute distress, well-developed , well-nourished, appropriately interactive. HEENT: Normocephalic, atraumatic. External ears without defect. Pupils equal, round, and reactive to light. Anicteric sclerae, moist conjunctivae, and no lid lag. CPAP in place. Neck: Supple with full range of motion. No lymphadenopathy or thyromegaly. Cardiovascular: Regular rate and rhythm without murmurs, rubs, or gallops appreciated. Pulmonary: Clear to auscultation bilaterally without crackles, wheezes, or rhonchi. Normal respiratory effort with no use of accessory muscles. Abdomen: Soft, bowel sounds present, nontender, nondistended. No hepatosplenomegaly or masses appreciated. Extremities: No clubbing, cyanosis, or edema. Left knee pain with no erythema or swelling appreciated. Skin: Normal temperature, turgor, and texture; no rash, ulcers, or subcutaneous nodules appreciated. Neurological: Paraplegic and unable to move bilateral lower extremity Psychiatric: Normal mood and affect. Alert and oriented to person, place, and time. Objective Labs Result Diagrams: 04/18/18 05:06 04/18/18 05:06 Labs: Laboratory Results - last 24 hr 04/17/18 04/17/18 04/17/18 17:00 17:10 17:10 WBC 47.2 H* RBC 2.50 L Hgb 7.0 L Hct 22.8 L MCV 91.3 MCH 28.2 MCHC 30.9 RDW 17.4 H Plt Count 332 Neut % (Auto) Not Reportable Lymph % (Auto) Not Reportable [place] % (Auto) Not Reportable Eos % (Auto) Not Reportable Baso % (Auto) Not Reportable Lymph # (Auto) Not Reportable [place] # (Auto) Not Reportable Baso # (Auto) Not Reportable Total Counted 100 Seg Neutrophils % 89.0 H Band Neutrophils % 1.0 L Lymphocytes % (Manual) 4.0 L Monocytes % (Manual) 6.0 Neutrophils # (Manual) 75994 H Smudge Cells 1+ H RBC Morphology See below Hypochromasia 1+ H Anisocytosis 2+ H PT 18.0 H INR 1.5 H APTT 25 L Sodium Potassium Chloride Carbon Dioxide BUN Creatinine Estimated GFR BUN/Creatinine Ratio Glucose Lactate Calcium Total Bilirubin AST ALT Alkaline Phosphatase Total Protein Albumin Globulin Albumin/Globulin Ratio Lipase Procalcitonin Urine Color Urine Appearance Urine pH Ur Specific [place] Urine Protein Urine Glucose (UA) Urine Ketones Urine Occult Blood Urine Nitrate Urine Bilirubin Urine Urobilinogen Ur Leukocyte Esterase Urine RBC Urine WBC Amorphous Sediment Urine Bacteria Granular Casts Ur Culture Indicated? Nasal Screen MRSA (PCR) Influenza A & B (PCR) Negative Blood Type Antibody Screen Crossmatch 04/17/18 04/17/18 04/17/18 17:10 17:10 17:10 WBC RBC Hgb Hct MCV MCH MCHC RDW Plt Count Neut % (Auto) Lymph % (Auto) [place] % (Auto) Eos % (Auto) Baso % (Auto) Lymph # (Auto) [place] # (Auto) Baso # (Auto) Total Counted Seg Neutrophils % Band Neutrophils % Lymphocytes % (Manual) Monocytes % (Manual) Neutrophils # (Manual) Smudge Cells RBC Morphology Hypochromasia Anisocytosis PT INR APTT Sodium 134 L Potassium 4.8 Chloride 98 Carbon Dioxide 23 BUN 29 H Creatinine 1.60 H Estimated GFR 43.2 L BUN/Creatinine Ratio 18.1 Glucose 219 H Lactate 1.6 Calcium 8.4 Total Bilirubin 1.2 AST 41 ALT 27 Alkaline Phosphatase 134 H Total Protein 7.6 Albumin 3.3 L Globulin 4.3 H Albumin/Globulin Ratio 0.8 L Lipase 15 L Procalcitonin 5.60 H Urine Color Urine Appearance Urine pH Ur Specific [place] Urine Protein Urine Glucose (UA) Urine Ketones Urine Occult Blood Urine Nitrate Urine Bilirubin Urine Urobilinogen Ur Leukocyte Esterase Urine RBC Urine WBC Amorphous Sediment Urine Bacteria Granular Casts Ur Culture Indicated? Nasal Screen MRSA (PCR) Influenza A & B (PCR) Blood Type Antibody Screen Crossmatch 04/17/18 04/17/18 04/17/18 18:57 19:05 19:05 WBC RBC Hgb 7.6 L Hct 25.1 L MCV MCH MCHC RDW Plt Count Neut % (Auto) Lymph % (Auto) [place] % (Auto) Eos % (Auto) Baso % (Auto) Lymph # (Auto) [place] # (Auto) Baso # (Auto) Total Counted Seg Neutrophils % Band Neutrophils % Lymphocytes % (Manual) Monocytes % (Manual) Neutrophils # (Manual) Smudge Cells RBC Morphology Hypochromasia Anisocytosis PT INR APTT Sodium Potassium Chloride Carbon Dioxide BUN Creatinine Estimated GFR BUN/Creatinine Ratio Glucose Lactate Calcium Total Bilirubin AST ALT Alkaline Phosphatase Total Protein Albumin Globulin Albumin/Globulin Ratio Lipase Procalcitonin Urine Color Yellow Urine Appearance Cloudy Urine pH 5.0 Ur Specific [place] 1.015 Urine Protein 1+ H Urine Glucose (UA) Negative Urine Ketones Negative Urine Occult Blood 1+ H Urine Nitrate Negative Urine Bilirubin Negative Urine Urobilinogen 1.0 Ur Leukocyte Esterase 2+ H Urine RBC 1-5/hpf Urine WBC 10-30/hpf H Amorphous Sediment 2+ Urine Bacteria None seen Granular Casts 1-5/lpf Ur Culture Indicated? Specimen cultured Nasal Screen MRSA (PCR) Influenza A & B (PCR) Blood Type A Positive Antibody Screen Negative Crossmatch See Detail 04/17/18 04/18/18 04/18/18 19:46 05:06 05:06 WBC 41.9 H* RBC 3.23 L Hgb 9.2 L Hct 28.8 L MCV 89.2 MCH 28.6 MCHC 32.0 RDW 16.9 H Plt Count 336 Neut % (Auto) Not Reportable Lymph % (Auto) Not Reportable [place] % (Auto) Not Reportable Eos % (Auto) Not Reportable Baso % (Auto) Not Reportable Lymph # (Auto) Not Reportable [place] # (Auto) Not Reportable Baso # (Auto) Not Reportable Total Counted 100 Seg Neutrophils % 90.0 H Band Neutrophils % 6.0 Lymphocytes % (Manual) 4.0 L Monocytes % (Manual) Neutrophils # (Manual) 29825 H Smudge Cells RBC Morphology Not Reportable Hypochromasia Anisocytosis 1+ H PT INR APTT Sodium 135 L Potassium 4.4 Chloride 105 Carbon Dioxide 21 L BUN 28 H Creatinine 1.30 H Estimated GFR 54.9 L BUN/Creatinine Ratio 21.5 Glucose 185 H Lactate Calcium 8.1 L Total Bilirubin AST ALT Alkaline Phosphatase Total Protein Albumin Globulin Albumin/Globulin Ratio Lipase Procalcitonin Urine Color Urine Appearance Urine pH Ur Specific [place] Urine Protein Urine Glucose (UA) Urine Ketones Urine Occult Blood Urine Nitrate Urine Bilirubin Urine Urobilinogen Ur Leukocyte Esterase Urine RBC Urine WBC Amorphous Sediment Urine Bacteria Granular Casts Ur Culture Indicated? Nasal Screen MRSA (PCR) Negative for mrsa Influenza A & B (PCR) Blood Type Antibody Screen Crossmatch Assessment & Plan Plan: Assessment/Plan Narrative: Brent Taylor is a 67-year-old paraplegic gentleman with a neurogenic bladder with chronic indwelling Veloz catheter for the last 8 years and pneumonia/ urosepsis infections 3-4 times per year who presented for increased confusion, decreased urinary output, febrile who was admitted for acute sepsis secondary to probable UTI from chronic indwelling Veloz catheter. 1. Acute septic shock, present on admission. Resolved. -Patient presented with confusion, febrile, profound leukocytosis, hypotension not responsive to IV fluids started on Levophed with infectious source UTI. -Early goal-directed therapy med including: IV fluids and broad-spectrum antibiotics with meropenem. -Titrated off Levophed over the course of the morning. 2. Acute UTI, present on admission. Active. -Patient presented with confusion, febrile, and decreased urine output with history of recurrent UTI. -Urine culture pending identification and sensitivities. -Blood culture x2 pending. -Chest x-ray did not demonstrate any acute cardiopulmonary. -Patient with profound leukocytosis of 47 on admission with procalcitonin 5.6. Repeat -Continue meropenem 2 g every 12 hr and will narrow spectrum once urine culture and sensitivities have resulted. Received levofloxacin x1 in ED. 3. Acute kidney injury, present on admission. Resolving. -Baseline creatinine 1.2. Initial creatinine 1.6. -Avoid nephrotoxin agents. -Continue IV fluids with NS at 100 mL/hr. 4. Anemia of chronic disease, present on admission. Active. -After closer examination of patient's hemoglobin chronically low in the 7-8 range. -His hemoglobin was 7.0, after hydration it was 7.6. He was transfused with 2 units PRBC. An acute GI loss source is not clear. 5. Diabetes mellitus type 2, insulin using, present on admission. Stable. -Restarted patient's usual insulin regimen with Lantus 30 units daily at bedtime , NovoLog 12 units t.i.d. with meals and low-dose correctional scale insulin at this time. 6. Paraplegia, present on admission. Stable. -This is stable and is contributing to his minimal sacral and heel pressure ulcers. Pressure offloading has been done with soft heel boots and frequent turning at home and will be continued here. -His family are in close attendance and his obviously has been managing this as well as possible. 7. Hypertension, chronic, present on admission. Stable. -Holding losartan while fluid resuscitation and Levophed are being used. 8. Atonic bladder, chronic, present on admission. Stable. -Veloz catheter was changed in the emergency department. Disposition: Patient will likely be discharged home in 1-2 days depending upon course of treatment and improvement in overall infectious picture. Brent aTylor is a 67-year-old paraplegic gentleman with a neurogenic bladder with chronic indwelling Veloz catheter for the last 8 years and pneumonia/ urosepsis infections 3-4 times per year who presented for increased confusion, decreased urinary output, febrile who was admitted for acute sepsis secondary to probable UTI from chronic indwelling Veloz catheter. 1. Acute sepsis, present on admission. Resolved. -Patient presented with confusion, febrile, and decreased urinary output with hypotension, leukocytosis, and source of infection UTI. 2. Acute urinary tract infection, secondary to chronic indwelling Veloz catheter, present on admission. Active. -Patient presented with increasing confusion, febrile, and decreased urinary output with chronic indwelling Veloz catheter and history of recurrent UTI. -Continue meropenem 2 g every 12 hr. Received Levaquin in ED. Begin on meropenem IV. He received a dose of Levaquin in the emergency department. The white blood count of 47.2 will be followed daily. Continue IV fluid bolus until blood pressure is recovered. Currently also on Levophed. He is requiring intensive care unit nursing care. Urine culture and blood cultures are pending. (2) Sepsis: Problem details: The source of the sepsis appears to be urinary but pneumonia is not entirely ruled out. He certainly could have an infiltrate not showing up on the chest x- ray as yet due to the dehydration. He is receiving Levaquin and then meropenem. He is on IV fluid boluses, now on 4-6 L total with Levophed added in the emergency department after the 1st 2-3 L. his blood pressure is up into the systolic 90s and he is more alert. His urinary output has been minimal. Qualifiers: Sepsis type: sepsis due to unspecified organism Qualified Code(s): A41.9 - Sepsis, unspecified organism Current visit: Yes Status: Acute (3) Anemia: Problem details: His hemoglobin was 7.0, after hydration it was 7.6. He is going to be transfused with 2 units of packed red blood cells. An acute GI loss source is not clear. We will need to investigate his most recent hemoglobin to establish how far off his usual trend he has. Qualifiers: Anemia type: unspecified type Bone marrow failure anemia type: Chronic kidney disease stage: Folate deficiency anemia type: Hemolytic anemia type: Iron deficiency anemia type: Other causes of anemia: Vitamin B12 deficiency anemia type: Qualified Code(s): D64.9 - Anemia, unspecified Current visit: No Status: Acute (4) Diabetes: Problem details: His usual insulin will be held pending return to oral intake status and he will be covered with a short-acting correctional scale insulin at this time. 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 Pressure offloading has been done with soft heel boots and frequent turning at home and will be continued here. Current visit: No Status: Acute (6) Hypertension: Problem details: Holding losartan while fluid resuscitation and Levophed are being used. Current visit: Yes Status: Acute (7) Atonic bladder: Problem details: Veloz catheter was changed in the emergency department. Current visit: Yes Status: Acute (8) Insulin dependent diabetes mellitus: Problem details: Resume Lantus and Aspart home regimen when able to eat. Current visit: Yes Status: Acute (9) Paraplegic spinal paralysis: Problem details: This is at baseline. His family are in close attendance and his obviously has been managing this as well as possible. Current visit: Yes Status: Acute
[2018-04-18] MEDS: ENOXAPARIN 40 MG/0.4 ML SYRINGE SUBCUT (09:03)
[2018-04-18] MEDS: INSULIN ASPART 100 UNIT/ML INSULN PEN 12 UNIT SUBCUT ×3 (09:06→16:59)
[2018-04-18] MEDS: BACLOFEN 10 MG TABLET 5 MG PO (09:21)
[2018-04-18] MEDS: CHOLECALCIFEROL (VITAMIN D3) 1,000 UNIT TABLET 3000 UNIT PO (09:23)
[2018-04-18] MEDS: SENNOSIDES 8.6 MG TABLET 17.2 MG PO (09:23)
[2018-04-18] MEDS: DOCUSATE 100 MG CAPSULE 200 MG PO (09:23)
[2018-04-18] MEDS: VENLAFAXINE ER 37.5 MG CAP PO (09:28)
[2018-04-18] MEDS: GABAPENTIN 300 MG CAPSULE PO (09:28)
--- NOTE | 2018-04-18 10:27 | CM.DANOTE ---
DCP: Case received, EMR received, EMR reviewed and met with patient. Introduced self and role. DCP template completed with information currently available. Was also able to obtain additional information from patient's spouse. Patient is a 67 year old male who admitted yesterday afternoon the the care of the hospitalist team. PCP: Dr. Cochran, but also [facility]. Payer: confirmed: Medicare/[employer]. Patient came to hospital family vehicle due to fever and weaknes. Patient is paraplegic, had indwelling pope catheter. Lives with his , Moriah, who is his primary caregiver. She stated that she has been carig for him for 8 years. She also tends to his pope cath as well. Patient alert and oriented, has a mechanical ceiling hoier at home, and uses power chair. Does go to [place] for medical care as well. stated that he has appt this Thursday. Is able to get into car as well. has had no concerns about managing him at home. Patient has history of UTI, as he has indwelling catheter. Discussed case at team rounds with hospitalist. Stated he does have bacteremia, could be early Pneumonia, but she stated that this didn't show up on x-ray, could be UTI related. Is getting some IV antibiotics. Spoke to patient and he stated, he was feeling better from when he first got here. He has been here before. P: DCP to continue to follow closely. Encouraged to call with any questions that she may have if she feels that she needs any resources at discharge. Plan is for home when stable. Shawna Rand RN/Public Relations Representative
[2018-04-18] MEDS: SODIUM CHLORIDE 0.9% 1,000 ML 125 ML IV ×2 (12:48→20:18)
[2018-04-18] MEDS: OXYCODONE IR 5 MG TABLET PO (14:24)
[2018-04-18] MEDS: BISACODYL 10 MG SUPP PR (18:09)
[2018-04-18] MEDS: SODIUM CHLORIDE 0.9% 1,000 ML 500 ML IV (20:37)
[2018-04-18] MEDS: INSULIN GLARGINE 100 UNIT/ML 3ML PEN 30 UNIT SUBCUT (21:03)
[2018-04-19] VITALS (12 sets, daily range): BP systolic 96–166; BP diastolic 48–84; PULSE 77–105; RESP 11–24; TEMP 36.4–37.1; O2SAT 94–104
[2018-04-19] MEDS: HYDROMORPHONE 0.5 MG INJ IV (00:26)
[2018-04-19] MEDS: clonazePAM 0.5 MG TABLET PO (00:40)
[2018-04-19] MEDS: SODIUM CHLORIDE 0.9% 500 ML 1000 ML IV (00:45)
--- NOTE | 2018-04-19 01:00 | PC.NURSE ---
Addendum entered by Misael Abad R.N. 04/19/18 06:32: 0145: Fluid bolus finished. B/P improved. 0400: Assessment unchanged. B/P remains 94-114systolic, with MAP>60. 0635: Labs drawn by lab, and sent. Original Note: Addendum entered by Misael Abad R.N. 04/19/18 01:27: 0128: Current blood pressure 110/52 with MAP of 73. Fluid bolus still in progress. Original Note: Croze Machine Operator Note: 0000: Current blood pressure 101/48. Pt sleeping, arousable. at bedside. IV in place in lt forearm, with NS infusing at 125cc/hr. SCDs on. declines repositioning at this time and will advise when pt is ready. 0010: Pt having 8/10 pain. Medicated with 0.5mg Dilaudid IV. is asking about his dose of Clonipen that was held at [facility], and feels that he needs to have it. LAKEISHA Gomez notified of this request and OK'd giving the dose now, with 30 minutes between this dose and the Dilaudid given at 0010. 0030: Current blood pressure 89/42 with MAP of 58. 0042: Current blood pressure 87/44 with MAP of 61. LAKEISHA Gomez notified of blood pressure trend. New orders given for increase of IV rate to 200cc/hr, and NS 500cc fluid bolus. NS rate increased as ordered. 0045: Fluid bolus of 500cc NS started at this time.
[2018-04-19] MEDS: MEROPENEM 2 GM in SODIUM CHLORIDE 0.9% 100 ML 200 ML IV ×3 (05:40→21:24)
--- NOTE | 2018-04-19 06:48 | P.PN_ITS ---
Subjective Date Patient Seen: 04/19/18 Interval history: Brent Taylor is a 67-year-old paraplegic gentleman with a neurogenic bladder with chronic indwelling Veloz catheter for the last 8 years and pneumonia/ urosepsis infections 3-4 times per year who presented for increased confusion, decreased urinary output, febrile who was admitted for acute sepsis secondary to probable UTI from chronic indwelling Veloz catheter. The patient is resting in bed comfortably with CPAP in place. He is alert and conversant. He endorses pain in his buttocks, low back, and crushed collarbone which are all chronic. He also endorses productive cough with thick sputum production that requires his cough assist. He denies headache, chest pain, shortness of breath, abdominal pain, nausea, vomiting, fever, or chills. He has a chronic indwelling Veloz catheter that was changed upon admission. His Veloz catheter is changed every 4 weeks by his . He is due for bowel movement which requires suppository and digital stimulation. He is paraplegic but is able to feel his lower extremities. Exam Vital Signs (past 8 hours): - 04/19/18 00:00 04/19/18 02:00 04/19/18 04:00 Temperature 97.6 F Pulse Rate 104 H 79 77 Respiratory Rate 12 13 11 L Blood Pressure 126/84 109/50 L 96/48 L Pulse Oximetry 95 94 97 Oxygen Delivery Method CPAP Oxygen Flow Rate 2 Narrative Exam Narrative: General: Older gentleman lying in bed and in no acute distress, well-developed , well-nourished, appropriately interactive. HEENT: Normocephalic, atraumatic. External ears without defect. Pupils equal, round, and reactive to light. Anicteric sclerae, moist conjunctivae, and no lid lag. CPAP in place. Neck: Supple with full range of motion. No lymphadenopathy or thyromegaly. Cardiovascular: Regular rate and rhythm without murmurs, rubs, or gallops appreciated. Pulmonary: Coarse rales at right lung base otherwise clear throughout. Normal respiratory effort with no use of accessory muscles. Abdomen: Soft, bowel sounds present, nontender, nondistended. No hepatosplenomegaly or masses appreciated. Extremities: No clubbing, cyanosis, or edema. Left knee pain with no erythema or swelling appreciated. Skin: Normal temperature, turgor, and texture; no rash, ulcers, or subcutaneous nodules appreciated. Chronic pressure ulcers on bilateral heels healing well, two small 1-2 cm pressure ulcerations on the sacrum to do not appear infected. Neurological: Paraplegic and unable to move bilateral lower extremity Psychiatric: Normal mood and affect. Alert and oriented to person, place, and time. Objective Labs Result Diagrams: 04/19/18 06:38 04/19/18 06:38 Labs: Laboratory Results - last 24 hr 04/18/18 04/18/18 05:06 05:06 Total Counted 100 Seg Neutrophils % 90.0 H Band Neutrophils % 6.0 Lymphocytes % (Manual) 4.0 L Neutrophils # (Manual) 16632 H RBC Morphology Not Reportable Anisocytosis 1+ H Procalcitonin 5.10 H Assessment & Plan Plan: Assessment/Plan Narrative: Brent Taylor is a 67-year-old paraplegic gentleman with a neurogenic bladder with chronic indwelling Veloz catheter for the last 8 years and pneumonia/ urosepsis infections 3-4 times per year who presented for increased confusion, decreased urinary output, febrile who was admitted for acute sepsis secondary to probable UTI from chronic indwelling Veloz catheter. 1. Acute septic shock, present on admission. Resolved. -Patient presented with confusion, febrile, profound leukocytosis, hypotension not responsive to IV fluids started on Levophed with infectious source UTI. -Early goal-directed therapy med including: IV fluids and broad-spectrum antibiotics with meropenem. -Titrated off Levophed over the course of the morning. 2. Acute community-acquired pneumonia, present on admission. Active. Acute UTI ruled out. -Patient presented with confusion, febrile, and decreased urine output with history of recurrent UTI. -Urine culture has no growth. -Blood culture x2 has no growth to date. -Chest x-ray did not demonstrate any acute cardiopulmonary process on admission but with rehydration suspect will see RLL pneumonia. Repeat chest x-ray pending. -Patient with profound leukocytosis of 47 on admission with procalcitonin 5.6. Trending down and will continue to monitor daily. -Continue meropenem 2 g every 12 hr . Received levofloxacin x1 in ED. 3. Acute kidney injury, present on admission. Resolving. -Baseline creatinine 1.2. Initial creatinine 1.6. -Avoid nephrotoxin agents. -Continue IV fluids with NS at 100 mL/hr. 4. Anemia of chronic disease, present on admission. Active. -After closer examination of patient's hemoglobin chronically low in the 7-8 range. -His hemoglobin was 7.0, after hydration it was 7.6. He was transfused with 2 units PRBC. An acute GI loss source is not clear. 5. Diabetes mellitus type 2, insulin using, present on admission. Stable. -Restarted patient's usual insulin regimen with Lantus 30 units daily at bedtime , NovoLog 12 units t.i.d. with meals and low-dose correctional scale insulin at this time. 6. Paraplegia with pressure ulcerations, present on admission. Stable. -His paraplegia is stable but contributing to his minimal sacral and heel pressure ulcers. Pressure offloading has been done with soft heel boots and frequent turning at home and will be continued here. -His family are in close attendance and his obviously has been managing this as well as possible. His is adamant to continue to manage his care including turns and wound care while in hospital which was discussed in depth and due to liability per for staff to continue management. -Consulted wound care nurse, pending. 7. Hypertension, chronic, present on admission. Stable. -Holding losartan while fluid resuscitation and Levophed are being used. 8. Atonic bladder, chronic, present on admission. Stable. -Veloz catheter was changed in the emergency department. Disposition: Patient will likely be discharged home in 1-2 days depending upon course of treatment and improvement in overall infectious picture.
[2018-04-19 07:22] LABS: Add Manual Diff / Slide Review NO; Basophils Absolute Auto 0 /uL (0-100); Basophils Percent Auto 0.2 % (0-2); Eosinophils Absolute Auto 0 /uL (0-450); Eosinophils Percent Auto 0.1 % (2-4); Hemoglobin 8.4 g/dL (13.5-17.5); Lymphocytes Absolute Auto 1000 /uL (1100-4500); Lymphocytes Percent Auto 4.3 % (25-40); Mean Corpuscular HGB Conc 31.2 % (30-36); Mean Corpuscular Hemoglobin 28.3 PG (26-34); Mean Corpuscular Volume 90.6 fL (80-100); Monocytes Absolute Auto 900 /uL (0-900); Monocytes Percent Auto 3.7 % (3-14); Neutrophils Absolute Auto 21200 /uL (1500-7000); Neutrophils Percent Auto 91.7 % (50-75); Platelet Count 276 X10^3/uL (150-400); Red Blood Cell Count 2.98 X10^6/uL (4.5-5.9); Red Cell Distribution Width 17.9 % (11.6-14.8); White Blood Cell Count 23.1 X10^3/uL (4.5-11.0)
[2018-04-19 07:29] LABS: Alanine Aminotransferase 29 IU/L (21-72); Albumin 2.6 g/dL (3.5-5.0); Albumin Globulin Ratio 0.7 (1.0-2.8); Alkaline Phosphatase 154 U/L (38-126); Aspartate Aminotransferase 41 IU/L (17-59); BUN Creatinine Ratio 22.3 (6-22); Bilirubin Total 0.8 mg/dL (0.2-1.3); Blood Urea Nitrogen 29 mg/dL (9-20); Calcium 8.1 mg/dL (8.4-10.2); Carbon Dioxide 22 mmol/L (22-32); Chloride 105 mmol/L (98-107); Estimated Glomerular Filt Rate 54.9 mL/min (>60); Globulin 3.8 g/dL (1.7-4.1); Glucose 92 mg/dL (80-110); HEMOLYSIS < 15 (0-50); Magnesium 1.6 mg/dL (1.6-2.3); Potassium 4.1 mmol/L (3.4-5.1); Sodium 137 mmol/L (137-145); Total Protein 6.4 g/dL (6.3-8.2)
[2018-04-19] MEDS: HYDROMORPHONE 1 MG INJ IV (08:05)
[2018-04-19 08:32] LABS: Procalcitonin 5.18 ng/mL (<0.5)
[2018-04-19] MEDS: OXYCODONE IR 5 MG TABLET 15 MG PO ×2 (08:36→21:36)
[2018-04-19] MEDS: ENOXAPARIN 40 MG/0.4 ML SYRINGE SUBCUT (08:38)
[2018-04-19] MEDS: BACLOFEN 10 MG TABLET 5 MG PO ×2 (08:38→21:13)
[2018-04-19] MEDS: INSULIN ASPART 100 UNIT/ML INSULN PEN 12 UNIT SUBCUT ×2 (08:40→13:14)
[2018-04-19] MEDS: VENLAFAXINE ER 37.5 MG CAP PO (08:41)
[2018-04-19] MEDS: CHOLECALCIFEROL (VITAMIN D3) 1,000 UNIT TABLET 3000 UNIT PO (08:42)
[2018-04-19] MEDS: DOCUSATE 100 MG CAPSULE 200 MG PO ×2 (08:42→21:12)
--- NOTE | 2018-04-19 09:32 | DI.RAD.S_ITS ---
PROCEDURE: XR CHEST 1V INDICATIONS: Pneumonia TECHNIQUE: One view of the chest was acquired. COMPARISON: [facility], CR, XR CHEST 1V, 04/17/2018, 17:35. FINDINGS: Surgical changes and devices: Post surgical changes redemonstrated in the thoracic spine. Lungs and pleura: There is a small right pleural effusion. There are medial bibasilar opacities consistent with atelectasis or consolidation. Mild pulmonary vascular prominence is demonstrated which may reflect vascular crowding secondary to low lung volumes or mild edema. Mediastinum: Mediastinal contours appear unchanged. Heart size is normal. Bones and chest wall: No suspicious bony lesions. Overlying soft tissues appear unremarkable. IMPRESSION: 1. Small right pleural effusion with medial bibasilar atelectasis or consolidation. 2. Low volumes with pulmonary vascular prominence consistent with vascular crowding or mild edema. Dictated by: Jake Romero M.D. on 04/19/2018 at 10:02 Approved by: Jake Romero M.D. on 04/19/2018 at 10:04
[2018-04-19] MEDS: clonazePAM 0.5 MG TABLET 0.25 MG PO ×2 (11:10→21:12)
--- NOTE | 2018-04-19 12:17 | DI.RAD.S_ITS ---
PROCEDURE: XR CHEST FOR PICC 1V INDICATIONS: picc line placement COMPARISON: None. FINDINGS: PICC was placed by the intravenous therapy team from the right side. Fluoroscopic spot film demonstrates tip of PICC in the distal SVC. Thoracic spine fixation hardware noted. IMPRESSION: Tip of PICC lies within the distal SVC. Dictated by: Audrey Salcedo MD, PhD on 04/19/2018 at 12:50 Approved by: Audrey Salcedo MD, PhD on 04/19/2018 at 12:50
[2018-04-19] MEDS: INSULIN ASPART 100 UNIT/ML INSULN PEN SUBCUT (13:13)
[2018-04-19] MEDS: SODIUM CHLORIDE 0.9% 500 ML 21 ML IV (13:36)
--- NOTE | 2018-04-19 17:54 | PC.NURSE ---
Addendum entered by Monalisa Sheldon R.N. 04/19/18 22:29: 2220 - Pt with a 20 second burst of SVT, Rate 160-170's. Self-limiting. See chart. Pt asymptomatic. Resting quietly, Pt reports intermittent dozing. Pt denies chest pain or palpatations. Original Note: Addendum entered by Monalisa Sheldon R.N. 04/19/18 21:59: 2100 - Pt awake, snack provided. Able to take PO meds without difficulty. C/O pain to neck, back and buttock. [place]one given. Encouraged to call for reposition when finished with PO intake. VSS, 99% on 2L. Call light in reach. Original Note: 1600 - Pt expressing significant anxiety r/t pt care. States that the current use of linen is increasing shear on pt skin. States that she has been told by staff and MD not to use her slider sheet. Pt , Ernie, state that the setting on the bed is to soft, and that she turned up the firmness, to prevent his butt from sinking. Also states that the staff put in the oxygen on upside down. She reports that O2 was replaced at 2.5L, but she turned in down to 2, stating he doesn't need that much. Pt reports that she has been taking care of pt for more than 8 years and that staff should be more respectful of their home care routine. Allowed pt to express concerns, Pt denies concerns only states that he wishes to return home. Offered to include pt and spouse in care decisions, discussed safety and liability. Encouraged both pt and spouse to engage staff in care and concerns. Pt spouse assist pt with cough assist device. Dark brown sputum. Anterior lung sounds clearer following use. 1700 - Pt BG 119, Pt spouse report minimal intake, he only ate one egg. No s/s coverage required. Pt spouse declines scheduled coverage.
[2018-04-19 17:55] LABS: Adenovirus Not Detected (Not Detect); Bordetella pertussis Not Detected (Not Detect); Chlamydophila pneumoniae Not Detected (Not Detect); Coronavirus 229E Not Detected (Not Detect); Coronavirus HKU1 Not Detected (Not Detect); Coronavirus NL 63 Not Detected (Not Detect); Coronavirus OC43 Not Detected (Not Detect); Human Metapneumovirus Not Detected (Not Detect); Human Rhinovirus/Enterovirus Not Detected (Not Detect); Influenza A Not Detected (Not Detect); Influenza B Not Detected (Not Detect); Mycoplasma pneumoniae Not Detected (Not Detect); Parainfluenza Virus 1 Not Detected (Not Detect); Parainfluenza Virus 2 Not Detected (Not Detect); Parainfluenza Virus 3 Not Detected (Not Detect); Parainfluenza Virus 4 Not Detected (Not Detect); Respiratory Syncytial Virus Not Detected (Not Detect)
[2018-04-19] MEDS: GABAPENTIN 300 MG CAPSULE PO (21:12)
[2018-04-19] MEDS: TRAZODONE 50 MG TABLET PO (21:12)
[2018-04-19] MEDS: INSULIN GLARGINE 100 UNIT/ML 3ML PEN 30 UNIT SUBCUT (21:15)
[2018-04-20] VITALS (16 sets, daily range): BP systolic 114–147; BP diastolic 55–86; PULSE 79–90; RESP 12–24; TEMP 36.4–36.8; O2SAT 88–100
[2018-04-20] MEDS: HYDROMORPHONE 1 MG INJ IV ×2 (03:20→13:38)
[2018-04-20] MEDS: MEROPENEM 2 GM in SODIUM CHLORIDE 0.9% 100 ML 200 ML IV ×3 (06:24→21:26)
--- NOTE | 2018-04-20 06:30 | PC.NURSE ---
Patient slept throughout night, C-pap in place with 2L bleed-in, SpO2 92-95%, assists with cough and sx device, minimal dark orourke sputum returned. Patient c/o pain to neck and Lt foot, 1mg IV Dilaudid given prior to repositioning. SR, VSS, IV Abx given as scheduled. said no need when asked of patient's CBG gets checked during the night, no s/s hypoglycemia noted, patient is alert and interactive, only complaint was pain.
[2018-04-20] MEDS: OXYCODONE IR 5 MG TABLET 15 MG PO (10:23)
[2018-04-20] MEDS: INSULIN ASPART 100 UNIT/ML INSULN PEN 12 UNIT SUBCUT (10:25)
[2018-04-20] MEDS: BACLOFEN 10 MG TABLET 5 MG PO ×2 (10:29→20:42)
[2018-04-20] MEDS: CHOLECALCIFEROL (VITAMIN D3) 1,000 UNIT TABLET 3000 UNIT PO (10:30)
[2018-04-20] MEDS: DOCUSATE 100 MG CAPSULE 200 MG PO ×2 (10:31→20:42)
[2018-04-20] MEDS: VENLAFAXINE ER 37.5 MG CAP PO (10:31)
[2018-04-20] MEDS: ENOXAPARIN 40 MG/0.4 ML SYRINGE SUBCUT (10:31)
[2018-04-20] MEDS: SENNOSIDES 8.6 MG TABLET 17.2 MG PO ×2 (10:36→20:43)
[2018-04-20 13:12] LABS: Add Manual Diff / Slide Review YES; Hematocrit 25.3 % (41-53); Hemoglobin 8.2 g/dL (13.5-17.5); Mean Corpuscular HGB Conc 32.3 % (30-36); Mean Corpuscular Volume 89.7 fL (80-100); Platelet Count 249 X10^3/uL (150-400); Red Blood Cell Count 2.81 X10^6/uL (4.5-5.9); Red Cell Distribution Width 17.4 % (11.6-14.8); White Blood Cell Count 13.2 X10^3/uL (4.5-11.0)
[2018-04-20 13:18] LABS: BUN Creatinine Ratio 24.5 (6-22); Blood Urea Nitrogen 27 mg/dL (9-20); Calcium 8.2 mg/dL (8.4-10.2); Carbon Dioxide 24 mmol/L (22-32); Chloride 105 mmol/L (98-107); Estimated Glomerular Filt Rate > 60.0 mL/min (>60); Glucose 131 mg/dL (80-110); HEMOLYSIS < 15 (0-50); Potassium 4.2 mmol/L (3.4-5.1); Sodium 137 mmol/L (137-145)
[2018-04-20 13:34] LABS: Neutrophils Absolute Manual 11220 /uL (3000-5900); Total Cells Counted 100
[2018-04-20 13:35] LABS: Anisocytosis 1+
[2018-04-20] MEDS: SODIUM CHLORIDE 0.9% 500 ML 21 ML IV (13:36)
[2018-04-20 13:38] LABS: Procalcitonin 3.02 ng/mL (<0.5)
--- NOTE | 2018-04-20 15:20 | CM.DPC ---
DCP: continued: Spoke with Dr. Walker in morning Team Rounds. She reports pt is improving slowly. Sputum culture is pending. at bedside and very involved in POC. DCP team to continue to follow.
[2018-04-20] MEDS: FUROSEMIDE 20 MG/2 ML VIAL IV (15:46)
--- NOTE | 2018-04-20 16:26 | P.PN_ITS ---
Subjective Date Patient Seen: 04/20/18 Interval history: Brent Taylor is a 67-year-old paraplegic gentleman with a neurogenic bladder with chronic indwelling Veloz catheter for the last 8 years and pneumonia/ urosepsis infections 3-4 times per year who presented for increased confusion, decreased urinary output, febrile who was admitted for acute sepsis secondary to probable UTI from chronic indwelling Veloz catheter. The patient is resting in bed comfortably. He endorses swelling in his hands and he has had to intermittently be on oxygen for sats below 92%. He continues to endorse pain in his buttocks, low back, and crushed collarbone which are all chronic and controlled with his home pain medication morphine ER 30 mg twice daily. He continues to have thick sputum production that requires his cough assist and he isnt always able to get the sputum up. He denies headache, chest pain, shortness of breath, abdominal pain, nausea, vomiting, fever, or chills. He is voidng via Veloz catheter. He requires suppository and digital stimulation for bowel movements. Exam Vital Signs (past 8 hours): - 04/20/18 12:38 04/20/18 13:00 04/20/18 15:15 Temperature 98.2 F Pulse Rate 90 Respiratory Rate 12 Blood Pressure 136/63 Pulse Oximetry 92 92 100 04/20/18 15:44 Temperature 97.7 F Pulse Rate 88 Respiratory Rate 15 Blood Pressure 147/68 H Pulse Oximetry 99 Oxygen Delivery Method Nasal Cannula Oxygen Flow Rate 2 Narrative Exam Narrative: General: Older gentleman lying in bed and in no acute distress, well-developed , well-nourished, appropriately interactive. HEENT: Normocephalic, atraumatic. External ears without defect. Pupils equal, round, and reactive to light. Anicteric sclerae, moist conjunctivae, and no lid lag. CPAP in place. Neck: Supple with full range of motion. No lymphadenopathy or thyromegaly. Cardiovascular: Regular rate and rhythm without murmurs, rubs, or gallops appreciated. Pulmonary: Coarse rales at right lung base otherwise clear throughout. Normal respiratory effort with no use of accessory muscles. Abdomen: Soft, bowel sounds present, nontender, nondistended. No hepatosplenomegaly or masses appreciated. Extremities: No clubbing, cyanosis, or edema. Left knee pain with no erythema or swelling appreciated. Skin: Normal temperature, turgor, and texture; no rash, ulcers, or subcutaneous nodules appreciated. Chronic pressure ulcers on bilateral heels healing well, two small 1-2 cm pressure ulcerations on the sacrum to do not appear infected. Neurological: Paraplegic and unable to move bilateral lower extremities. Psychiatric: Normal mood and affect. Alert and oriented to person, place, and time. Objective Labs Result Diagrams: 04/20/18 12:45 04/20/18 12:45 Labs: Laboratory Results - last 24 hr 04/19/18 04/20/18 04/20/18 16:00 12:45 12:45 WBC 13.2 H RBC 2.81 L Hgb 8.2 L Hct 25.3 L MCV 89.7 MCH 29.0 MCHC 32.3 RDW 17.4 H Plt Count 249 Neut % (Auto) Not Reportable Lymph % (Auto) Not Reportable [place] % (Auto) Not Reportable Eos % (Auto) Not Reportable Baso % (Auto) Not Reportable Lymph # (Auto) Not Reportable [place] # (Auto) Not Reportable Baso # (Auto) Not Reportable Total Counted 100 Seg Neutrophils % 69.0 Band Neutrophils % 16.0 H Lymphocytes % (Manual) 2.0 L Atypical Lymphs % 8.0 H Monocytes % (Manual) 2.0 Eosinophils % (Manual) 3.0 Neutrophils # (Manual) 71554 H RBC Morphology See below Anisocytosis 1+ H Sodium Potassium Chloride Carbon Dioxide BUN Creatinine Estimated GFR BUN/Creatinine Ratio Glucose Calcium Procalcitonin 3.02 H Chlamy pneumoniae PCR Not detected Adenovirus (PCR) Not detected B.parapertussis DNA PCR Not detected Coronavirus OC43 (PCR) Not detected Coronavirus HKU1 (PCR) Not detected Coronavirus 229E (PCR) Not detected Coronavirus NL63 (PCR) Not detected Human Metapneumovir PCR Not detected Influenza Type A (PCR) Not detected Influenza Type B (PCR) Not detected M. pneumoniae (PCR) Not detected Parainfluenza 1 (PCR) Not detected Parainfluenza 2 (PCR) Not detected Parainfluenza 3 (PCR) Not detected Parainfluenza 4 (PCR) Not detected RSV (PCR) Not detected Entero/Rhino (PCR) Not detected 04/20/18 12:45 WBC RBC Hgb Hct MCV MCH MCHC RDW Plt Count Neut % (Auto) Lymph % (Auto) [place] % (Auto) Eos % (Auto) Baso % (Auto) Lymph # (Auto) [place] # (Auto) Baso # (Auto) Total Counted Seg Neutrophils % Band Neutrophils % Lymphocytes % (Manual) Atypical Lymphs % Monocytes % (Manual) Eosinophils % (Manual) Neutrophils # (Manual) RBC Morphology Anisocytosis Sodium 137 Potassium 4.2 Chloride 105 Carbon Dioxide 24 BUN 27 H Creatinine 1.10 Estimated GFR > 60.0 BUN/Creatinine Ratio 24.5 H Glucose 131 H Calcium 8.2 L Procalcitonin Chlamy pneumoniae PCR Adenovirus (PCR) B.parapertussis DNA PCR Coronavirus OC43 (PCR) Coronavirus HKU1 (PCR) Coronavirus 229E (PCR) Coronavirus NL63 (PCR) Human Metapneumovir PCR Influenza Type A (PCR) Influenza Type B (PCR) M. pneumoniae (PCR) Parainfluenza 1 (PCR) Parainfluenza 2 (PCR) Parainfluenza 3 (PCR) Parainfluenza 4 (PCR) RSV (PCR) Entero/Rhino (PCR) Assessment & Plan Plan: Assessment/Plan Narrative: Brent Taylor is a 67-year-old paraplegic gentleman with a neurogenic bladder with chronic indwelling Veloz catheter for the last 8 years and pneumonia/ urosepsis infections 3-4 times per year who presented for increased confusion, decreased urinary output, febrile who was admitted for acute sepsis secondary to probable UTI from chronic indwelling Veloz catheter. 1. Acute septic shock, present on admission. Resolved. -Patient presented with confusion, febrile, profound leukocytosis, hypotension not responsive to IV fluids started on Levophed with infectious source UTI. -Early goal-directed therapy med including: IV fluids and broad-spectrum antibiotics with meropenem. -Titrated off Levophed over the course of the morning. 2. Acute UTI, present on admission. Active. -Patient presented with confusion, febrile, and decreased urine output with history of recurrent UTI. -Urine culture reportedly had no growth but must have been entered incorrectly as it only preliminarily was not growing anything but is now growing Klebsiella. -Blood culture x2 has no growth to date. -Patient with profound leukocytosis of 47 on admission with procalcitonin 5.6 likely due to multiple infections. Trending down and will continue to monitor daily. -Continue meropenem 2 g every 12 hr . Received levofloxacin x1 in ED. Acute community-acquired pneumonia, present on admission. Active. -Chest x-ray did not demonstrate any acute cardiopulmonary process on admission but with rehydration suspect will see RLL pneumonia. Repeat chest x-ray demonstrated bibasilar consolidations. -Patient with profound leukocytosis of 47 on admission with procalcitonin 5.6 likely due to multiple infections. Trending down and will continue to monitor daily. -Blood culture x2 has no growth to date. Sputum culture pending. -Continue meropenem 2 g every 12 hr . Received levofloxacin x1 in ED. 3. Acute kidney injury, present on admission. Resolving. -Baseline creatinine 1.2. Initial creatinine 1.6. -Avoid nephrotoxin agents. -Continue IV fluids with NS at 100 mL/hr. 4. Anemia of chronic disease, present on admission. Active. -After closer examination of patient's hemoglobin chronically low in the 7-8 range. -His hemoglobin was 7.0, after hydration it was 7.6. He was transfused with 2 units PRBC. 5. Diabetes mellitus type 2, insulin using, present on admission. Stable. -Restarted patient's usual insulin regimen with Lantus 30 units daily at bedtime , NovoLog 12 units t.i.d. with meals and low-dose correctional scale insulin at this time. 6. Paraplegia with pressure ulcerations, present on admission. Stable. -His paraplegia is stable but contributing to his minimal sacral and heel pressure ulcers. Pressure offloading has been done with soft heel boots and frequent turning at home and will be continued here. -His family are in close attendance and his obviously has been managing this as well as possible. His is adamant to continue to manage his care including turns and wound care while in hospital which was discussed in depth and due to liability per for staff to continue management. -Consulted wound care nurse, pending. 7. Hypertension, chronic, present on admission. Stable. -Holding losartan while fluid resuscitation and Levophed are being used. 8. Atonic bladder, chronic, present on admission. Stable. -Veloz catheter was changed in the emergency department. Disposition: Patient will likely be discharged home in 1-2 days depending upon course of treatment and improvement in overall infectious picture.
--- NOTE | 2018-04-20 18:23 | PC.NURSE ---
Addendum entered by Monalisa Sheldon R.N. 04/20/18 22:23: 2220 - ABG results called to ELECTROMEDICAL SERVICE ENGINEER. RT to NT suction. Pt tolerated well. Suction for thick cream/white secretions. Following suction, replaced home c-pap adjusted O2 to 2L. Sats currently 94%. Anterior airway congestion improved. Monitor. Original Note: Addendum entered by Monalisa Sheldon R.N. 04/20/18 22:02: 2130 - Pt with onset of SOB, Spouse assist with cough assist machine x3. Large amount of thick orourke secretions. Oral swab and suction. Pt with persistent anterior airway congestion, audible, with garbling voice. Placed on home C-pap with 4L bleed in. Sats 87%. Due to fatigue, pt is unable to continue with cough assist. Call placed to RT, and to ELECTROMEDICAL SERVICE ENGINEER. Order for ABG and NT suction. Original Note: Addendum entered by Monalisa Sheldon R.N. 04/20/18 20:59: 2030 - Wound care provided as ordered by clinic. Reviewed all instructions with Pt and spouse. Pt sats decreased to 85% on RA while HOB was decreased for procedures. Pt also c/o neck pain. HS meds given. Pt placed pt on home c-pap, sats increased to 92%. (Calmoseptine not available, zinc ointment used, Dayshift to obtain ordered ointment) Comfort measures provided. Call light in reach. Original Note: 1819 - Pt remains drowsy. Pt reports level of wakefulness at about baseline. Pt assisting with meal. Pt reports sore throat during meal time. Possibly r/t O2 use. Currently on RA sats 89%. Pt expressing concerns with Wound care consult, He was basically telling me I don't take good care of him. I can't drive him to the wound clinic every week. Reassurance provided. Educated to need for drsg change to PICC line today and awaiting order from wound care consult. Monitor.
[2018-04-20] MEDS: clonazePAM 0.5 MG TABLET 0.25 MG PO (20:40)
[2018-04-20] MEDS: MORPHINE ER 30 MG TABLET PO (20:40)
[2018-04-20] MEDS: GABAPENTIN 300 MG CAPSULE PO (20:43)
[2018-04-20] MEDS: TRAZODONE 50 MG TABLET PO (20:43)
[2018-04-20] MEDS: INSULIN GLARGINE 100 UNIT/ML 3ML PEN 30 UNIT SUBCUT (20:44)
--- NOTE | 2018-04-20 22:28 | P.EN_ITS ---
Date Patient Seen: 04/22/18 Time Patient Seen: 21:22 Change in level of care to ICU status Transfer order placed, continuing his current plan of care and medication, New Order - will add BiPAP and repeat ABG 1 hr after patient was started on the BiPAP fiberglass pipe covering supervisor notified of transfer, RT updated on plan of care Patient is being transferred to the ICU to be placed on BiPAP Repeat ABG reviewed, worsening (see appropriate EMAR section for ABG review) Patient seen at bedside He is alert and oriented x2-3, however appears to be energy depleted and weak, notes that he is not feeling very well Patient is communicating minimally, defering answer of questions to his S1-S2, patient denies chest pain and palpitations Course breath sounds, on 5 L O2 SpO2 97%, overall has required an increase in O2 demand, no overt dyspnea or tachypnea at rest Use a CPAP during the day and at times in the evening, this point may not be sufficient, we will recommend to the morning team evaluation for home BiPAP or a trilogy I will recommend the patient remains in ICU after he is no longer ICU status, given his underlying co-morbidities and propensity to decompensate fairly quickly Plan of care discussed with patient's and the patient, questions answered ICU nurse updated
[2018-04-20 22:32] LABS: HCO3 ABG 25 mmol/L (22-26); Oxygen Saturation ABG 83 % (95-100); PCO2 ABG 51.7 mmHg (35-45); PO2 ABG 54 mmHg (80-100); TCO2 ABG 26 mmol/L (21-31); pH ABG 7.29 (7.35-7.45)
[2018-04-20 22:33] LABS: Fractionated Inspired Oxygen 100
[2018-04-21] VITALS (8 sets, daily range): BP systolic 112–161; BP diastolic 43–81; PULSE 73–99; RESP 18–24; TEMP 36.4–37.1; O2SAT 93–98
[2018-04-21] MEDS: OXYCODONE IR 5 MG TABLET 15 MG PO ×2 (02:11→18:25)
[2018-04-21] MEDS: guaiFENesin ER 600 MG TAB 1200 MG PO ×3 (02:12→20:25)
[2018-04-21] MEDS: MEROPENEM 2 GM in SODIUM CHLORIDE 0.9% 100 ML 200 ML IV ×3 (06:15→21:22)
[2018-04-21 08:51] LABS: Add Manual Diff / Slide Review NO; Basophils Absolute Auto 100 /uL (0-100); Basophils Percent Auto 0.7 % (0-2); Eosinophils Absolute Auto 300 /uL (0-450); Hematocrit 24.6 % (41-53); Lymphocytes Absolute Auto 1600 /uL (1100-4500); Lymphocytes Percent Auto 12.5 % (25-40); Mean Corpuscular HGB Conc 32.4 % (30-36); Mean Corpuscular Hemoglobin 28.8 PG (26-34); Mean Corpuscular Volume 88.8 fL (80-100); Monocytes Absolute Auto 700 /uL (0-900); Monocytes Percent Auto 5.2 % (3-14); Neutrophils Absolute Auto 10100 /uL (1500-7000); Neutrophils Percent Auto 79.6 % (50-75); Platelet Count 227 X10^3/uL (150-400); Red Blood Cell Count 2.77 X10^6/uL (4.5-5.9); Red Cell Distribution Width 16.9 % (11.6-14.8); White Blood Cell Count 12.7 X10^3/uL (4.5-11.0)
[2018-04-21 09:18] LABS: BUN Creatinine Ratio 25.5 (6-22); Blood Urea Nitrogen 28 mg/dL (9-20); Calcium 8.3 mg/dL (8.4-10.2); Carbon Dioxide 27 mmol/L (22-32); Chloride 103 mmol/L (98-107); Estimated Glomerular Filt Rate > 60.0 mL/min (>60); Glucose 79 mg/dL (80-110); HEMOLYSIS < 15 (0-50); Magnesium 1.7 mg/dL (1.6-2.3); Potassium 4.3 mmol/L (3.4-5.1); Sodium 137 mmol/L (137-145)
[2018-04-21] MEDS: BACLOFEN 10 MG TABLET 5 MG PO ×2 (09:24→20:24)
[2018-04-21] MEDS: MORPHINE ER 30 MG TABLET PO ×2 (09:25→20:28)
[2018-04-21] MEDS: FUROSEMIDE 20 MG/2 ML VIAL IV (09:26)
[2018-04-21] MEDS: ENOXAPARIN 40 MG/0.4 ML SYRINGE SUBCUT (09:27)
[2018-04-21] MEDS: VENLAFAXINE ER 37.5 MG CAP PO (09:28)
[2018-04-21] MEDS: CHOLECALCIFEROL (VITAMIN D3) 1,000 UNIT TABLET 3000 UNIT PO (09:29)
[2018-04-21] MEDS: DOCUSATE 100 MG CAPSULE 200 MG PO ×2 (09:29→20:23)
[2018-04-21] MEDS: SENNOSIDES 8.6 MG TABLET 17.2 MG PO (09:45)
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
[2018-04-21] MEDS: INSULIN ASPART 100 UNIT/ML INSULN PEN 12 UNIT SUBCUT ×2 (12:45→17:08)
[2018-04-21 13:46] LABS: Anti-Streptolysin O Antibody < 50 IU/mL (< 200)
[2018-04-21] MEDS: BISACODYL 10 MG SUPP PR (14:00)
--- NOTE | 2018-04-21 15:23 | PC.NURSE ---
Day Shift Note Buttocks and coccyx wounds cleansed and new ointment applied per MD order. Digital disimpaction done by per home routine. Oxygen sats 94% on RA, coughing up yellow sputum. Call light within reach, at bedside.
--- NOTE | 2018-04-21 19:27 | PC.NURSE ---
1900- Patient transferred to room 231. Report called to Temi [facility]. Patient stable at the time of transfer.
[2018-04-21] MEDS: clonazePAM 0.5 MG TABLET 0.25 MG PO (20:22)
[2018-04-21] MEDS: TRAZODONE 50 MG TABLET PO (20:25)
[2018-04-21] MEDS: GABAPENTIN 300 MG CAPSULE PO (20:25)
[2018-04-21] MEDS: INSULIN GLARGINE 100 UNIT/ML 3ML PEN 30 UNIT SUBCUT (21:22)
--- NOTE | 2018-04-21 23:42 | P.PN_ITS ---
Subjective Date Patient Seen: 04/21/18 Interval history: Brent Taylor is a 67-year-old paraplegic gentleman with a neurogenic bladder with chronic indwelling Veloz catheter for the last 8 years and pneumonia/u rosepsis infections 3-4 times per year who presented for increased confusion, decreased urinary output, febrile who was admitted for acute sepsis secondary to probable UTI from chronic indwelling Veloz catheter. Overnight: The patient became hypoxemic and had a mucus plug which once released oxygenation improved. The patient is resting in bed with CPAP in place and appears comfortable. He continues to have mild swelling in hands bilaterally. He continues to endorse pain in his buttocks, low back, and crushed collarbone which are all chronic and controlled with his home pain medication morphine ER 30 mg twice daily. He reports his pain is a +4/10 in severity. He continues to have thick sputum production that requires his cough assist. Restarted patient's Mucinex. He denies headache, chest pain, shortness of breath, abdominal pain, nausea, vomiting, fever, or chills. He is voidng via Veloz catheter. He requires suppository and digital stimulation for bowel movements for which he is due today. Exam Vital Signs (past 8 hours): - 04/21/18 15:46 04/21/18 18:34 04/21/18 19:10 Temperature 98.0 F 98.7 F Pulse Rate 76 99 H Respiratory Rate 19 19 Blood Pressure 126/48 L 112/43 L Pulse Oximetry 93 94 93 Oxygen Delivery Method Room Air Oxygen Flow Rate 0 Narrative Exam Narrative: General: Older gentleman lying in bed and in no acute distress, well-developed, well-nourished, appropriately interactive. HEENT: Normocephalic, atraumatic. External ears without defect. Pupils equal, round, and reactive to light. Anicteric sclerae, moist conjunctivae, and no lid lag. CPAP in place. Neck: Supple with full range of motion. No lymphadenopathy or thyromegaly. Cardiovascular: Regular rate and rhythm without murmurs, rubs, or gallops appreciated. Pulmonary: Coarse rales at right lung base otherwise clear throughout. Normal respiratory effort with no use of accessory muscles. Abdomen: Soft, bowel sounds present, nontender, nondistended. No hepatosplenomegaly or masses appreciated. Extremities: No clubbing, cyanosis, or edema. Skin: Normal temperature, turgor, and texture; no rash, ulcers, or subcutaneous nodules appreciated. Chronic pressure ulcers on bilateral heels healing well, two small 1-2 cm pressure ulcerations on the sacrum to do not appear infected. Neurological: Paraplegic and unable to move bilateral lower extremities. Psychiatric: Normal mood and affect. Alert and oriented to person, place, and time. Objective Labs Result Diagrams: 04/21/18 08:40 04/21/18 08:40 Labs: Laboratory Results - last 24 hr 04/19/18 04/21/18 04/21/18 14:20 08:40 08:40 WBC 12.7 H RBC 2.77 L Hgb 8.0 L Hct 24.6 L MCV 88.8 MCH 28.8 MCHC 32.4 RDW 16.9 H Plt Count 227 Neut % (Auto) 79.6 H Lymph % (Auto) 12.5 L [place] % (Auto) 5.2 Eos % (Auto) 2.0 Baso % (Auto) 0.7 Neut # (Auto) 36318 H Lymph # (Auto) 1600 [place] # (Auto) 700 Eos # (Auto) 300 Baso # (Auto) 100 Sodium 137 Potassium 4.3 Chloride 103 Carbon Dioxide 27 BUN 28 H Creatinine 1.10 Estimated GFR > 60.0 BUN/Creatinine Ratio 25.5 H Glucose 79 L Calcium 8.3 L Magnesium 1.7 Anti-Streptolysin O Ab < 50 Assessment & Plan Assessment Narrative: Brent Taylor is a 67-year-old paraplegic gentleman with a neurogenic bladder with chronic indwelling Veloz catheter for the last 8 years and pneumonia/ur osepsis infections 3-4 times per year who presented for increased confusion, decreased urinary output, febrile who was admitted for acute sepsis secondary to probable UTI from chronic indwelling Veloz catheter. 1. Acute septic shock, present on admission. Resolved. -Patient presented with confusion, febrile, profound leukocytosis, hypotension not responsive to IV fluids started on Levophed with infectious source UTI. -Early goal-directed therapy med including: IV fluids and broad-spectrum antibiotics with meropenem. -Titrated off Levophed. 2. Acute recurrent UTI, present on admission. Resolving. -Patient presented with confusion, febrile, and decreased urine output with hi story of recurrent UTI. -Urine culture reportedly had no growth but must have been entered incorrectly as it only preliminarily was not growing anything but is now growing Klebsiella. -Blood culture x2 has no growth to date. -Patient with profound leukocytosis of 47 on admission with procalcitonin 5.6 likely due to multiple infections. Trending down and will continue to monitor daily. -Continue meropenem 2 g every 12 hr . Received levofloxacin x1 in ED. 3. Acute community-acquired pneumonia, present on admission. Resolving. -Chest x-ray did not demonstrate any acute cardiopulmonary process on admission but with rehydration suspect will see RLL pneumonia. Repeat chest x-ray de monstrated bibasilar consolidations. -Patient with profound leukocytosis of 47 on admission with procalcitonin 5.6 likely due to multiple infections. Trending down and will continue to monitor daily. -Blood culture x2 has no growth to date. Sputum culture has no growth. -Continue meropenem 2 g every 12 hr due to possibility of Pseudomonas. Received levofloxacin x1 in ED. Will consider switching to oral antibiotic tomorrow. -Recommended outpatient pulmonology follow-up for mucus plugging. 4. Acute kidney injury, present on admission. Resolving. -Baseline creatinine 1.2. Initial creatinine 1.6. -Avoid nephrotoxin agents. -Discontinued IV fluids with NS at 100 mL/hr. 5. Anemia of chronic disease, present on admission. Active. -After closer examination of patient's hemoglobin chronically low in the 7-8 range. -His hemoglobin was 7.0, after hydration it was 7.6. He was transfused with 2 units PRBC. -No overt signs of bleeding. Hemodynamically stable. -Continue to monitor CBC daily. 6. Diabetes mellitus type 2, insulin using, present on admission. Stable. -Continue patient's usual insulin regimen with Lantus 30 units daily at bedtime, NovoLog 12 units t.i.d. with meals and low-dose correctional scale insulin at this time. 7. Paraplegia with pressure ulcerations, present on admission. Stable. -His paraplegia is stable but contributing to his minimal sacral and heel pressure ulcers. Pressure offloading has been done with soft heel boots and frequent turning at home and will be continued here. -His family are in close attendance and his obviously has been managing this as well as possible. His is adamant to continue to manage his care including turns and wound care while in hospital which was discussed in depth and due to liability per for staff to continue management. -Consulted wound care nurse, pending. 8. Hypertension, chronic, present on admission. Stable. -Held losartan initially due to hypotension. Will restart home losartan tomorrow. 9. Atonic bladder, chronic, present on admission. Stable. -Veloz catheter was changed in the emergency department. Continue to change every 4 weeks. -Recommended Urology consultation outpatient for possible prophylactic antibiotics for recurrent UTI and possible scope to assure no anatomic abnormalities causing recurrent UTI. Disposition: Patient will likely be discharged home in 1-2 days depending upon stability of breathing.
[2018-04-22] VITALS (18 sets, daily range): BP systolic 137–153; BP diastolic 58–76; PULSE 89–104; RESP 16–24; TEMP 24–37.6; O2SAT 85–99; BMI 42.7
--- NOTE | 2018-04-22 | DI.RAD.S_ITS ---
PROCEDURE: XR CHEST 1V INDICATIONS: pneumonia TECHNIQUE: One view of the chest was acquired. COMPARISON: [facility], CR, XR CHEST FOR PICC 1V, 04/19/2018, 12:22. [facility], CR, XR CHEST 1V, 04/19/2018, 9:46. FINDINGS: Surgical changes and devices: PICC line projects in the distal SVC via a right-sided approach. Thoracic spine fixation hardware. Lungs and pleura: Streaky opacity in the left lung base as decreased slightly in size likely represents atelectasis. No pleural effusions or pneumothorax. Mediastinum: Mediastinal contours appear normal. Heart size is normal. Bones and chest wall: No suspicious bony lesions. Overlying soft tissues appear unremarkable. IMPRESSION: Probable left basilar atelectasis. Dictated by: Audrey Salcedo MD, PhD on 04/22/2018 at 16:30 Approved by: Audrey Salcedo MD, PhD on 04/22/2018 at 16:31
[2018-04-22] MEDS: SODIUM CHLORIDE 0.9% 500 ML 21 ML IV (06:11)
[2018-04-22] MEDS: MEROPENEM 2 GM in SODIUM CHLORIDE 0.9% 100 ML 200 ML IV (06:12)
[2018-04-22 06:28] LABS: Hematocrit 26.2 % (41-53); Hemoglobin 8.4 g/dL (13.5-17.5); Mean Corpuscular HGB Conc 32.2 % (30-36); Mean Corpuscular Hemoglobin 28.6 PG (26-34); Mean Corpuscular Volume 88.9 fL (80-100); Platelet Count 241 X10^3/uL (150-400); Red Blood Cell Count 2.95 X10^6/uL (4.5-5.9); Red Cell Distribution Width 17.3 % (11.6-14.8); White Blood Cell Count 14.3 X10^3/uL (4.5-11.0)
[2018-04-22 06:31] LABS: Add Manual Diff / Slide Review YES
[2018-04-22 06:49] LABS: Alanine Aminotransferase 26 IU/L (21-72); Albumin 2.7 g/dL (3.5-5.0); Albumin Globulin Ratio 0.7 (1.0-2.8); Alkaline Phosphatase 230 U/L (38-126); Aspartate Aminotransferase 43 IU/L (17-59); Bilirubin Total 0.4 mg/dL (0.2-1.3); Blood Urea Nitrogen 28 mg/dL (9-20); Calcium 8.2 mg/dL (8.4-10.2); Carbon Dioxide 30 mmol/L (22-32); Chloride 99 mmol/L (98-107); Estimated Glomerular Filt Rate > 60.0 mL/min (>60); Globulin 3.7 g/dL (1.7-4.1); Glucose 107 mg/dL (80-110); HEMOLYSIS < 15 (0-50); Potassium 4.5 mmol/L (3.4-5.1); Sodium 135 mmol/L (137-145); Total Protein 6.4 g/dL (6.3-8.2)
--- NOTE | 2018-04-22 06:51 | PC.NURSE ---
Patient slightly restless throughout night, rates pain 4/10, declined offer of prn oxycodone. SR/ST 90s-110. Afebrile, RA SpO2 88-92%, desatting to 86% while sleeping with C-pap, place on 2L O2 bleed-in, sats increased to 96%, breath sounds coarse R>L, minimal cough or congestion, used cough assist device once.
[2018-04-22 07:08] LABS: Procalcitonin 1.58 ng/mL (<0.5)
[2018-04-22 08:21] LABS: Neutrophils Absolute Manual 9867 /uL (3000-5900); Total Cells Counted 100
[2018-04-22 08:22] LABS: Anisocytosis 1+; Hypochromasia 1+
[2018-04-22] MEDS: INSULIN ASPART 100 UNIT/ML INSULN PEN 12 UNIT SUBCUT (09:10)
[2018-04-22] MEDS: BACLOFEN 10 MG TABLET 5 MG PO (09:11)
[2018-04-22] MEDS: CHOLECALCIFEROL (VITAMIN D3) 1,000 UNIT TABLET 3000 UNIT PO (09:14)
[2018-04-22] MEDS: DOCUSATE 100 MG CAPSULE 200 MG PO ×2 (09:14→20:49)
[2018-04-22] MEDS: ENOXAPARIN 40 MG/0.4 ML SYRINGE SUBCUT (09:15)
[2018-04-22] MEDS: LOSARTAN 25 MG TABLET PO (09:16)
[2018-04-22] MEDS: guaiFENesin ER 600 MG TAB 1200 MG PO ×2 (09:16→20:49)
[2018-04-22] MEDS: MORPHINE ER 30 MG TABLET PO ×2 (09:17→20:56)
[2018-04-22] MEDS: VENLAFAXINE ER 37.5 MG CAP PO (09:18)
--- NOTE | 2018-04-22 09:33 | P.PN_ITS ---
Subjective Date Patient Seen: 04/22/18 Interval history: Brent Taylor is a 67-year-old paraplegic gentleman with a neurogenic bladder with chronic indwelling Veloz catheter for the last 8 years and pneumonia/urosepsis infections 3-4 times per year who presented for increased confusion, decreased urinary output, febrile who was admitted for acute sepsis secondary to UTI from chronic indwelling Veloz catheter and likely pneumonia. Overnight: The patient became acutely hypoxemic again into low 80s and O2 was provided with a CPAP. This a.m. he is off of supplemental O2 with sats around 90%. Main complaint is he feels fatigued. Exam Vital Signs (past 8 hours): - 04/22/18 02:00 04/22/18 02:15 04/22/18 06:00 Temperature 98.2 F 99.4 F Pulse Rate 101 H 95 H Respiratory Rate 16 16 Blood Pressure 141/58 H 138/64 Pulse Oximetry 92 93 97 04/22/18 07:42 04/22/18 07:43 04/22/18 08:00 Temperature 99.6 F Pulse Rate 89 Respiratory Rate 16 Blood Pressure 149/66 H Pulse Oximetry 94 91 94 Oxygen Delivery Method Room Air Oxygen Flow Rate 2 Narrative Exam Narrative: GENERAL: Alert, tired appearing male but otherwise in no acute distress HEENT: Pupils equal and reactive CHEST: Diminished breath sounds with mild bilateral rhonchi ABDOMEN: Obese, nontender EXTREMITIES: Still slightly edematous in upper extremities, no pretibial edema Neurological: Paraplegic and unable to move bilateral lower extremities Skin:Normal temperature, turgor, and texture; no rash, ulcers, or subcutaneous nodules appreciated. Chronic pressure ulcers on bilateral heels healing well, two small 1-2 cm pressure ulcerations on the sacrum to do not appear infected. NEUROLOGICAL: Alert, pleasant, no focal findings SKIN: Warm, dry, no petechiae, no rash Objective Labs Result Diagrams: 04/22/18 06:15 04/22/18 06:15 Labs: Laboratory Results - last 24 hr 04/19/18 04/21/18 04/22/18 14:20 08:40 06:15 WBC 14.3 H RBC 2.95 L Hgb 8.4 L Hct 26.2 L MCV 88.9 MCH 28.6 MCHC 32.2 RDW 17.3 H Plt Count 241 Neut % (Auto) Not Reportable Lymph % (Auto) Not Reportable [place] % (Auto) Not Reportable Eos % (Auto) Not Reportable Baso % (Auto) Not Reportable Lymph # (Auto) Not Reportable [place] # (Auto) Not Reportable Baso # (Auto) Not Reportable Total Counted 100 Seg Neutrophils % 62.0 Band Neutrophils % 7.0 Lymphocytes % (Manual) 10.0 L D Atypical Lymphs % 9.0 H Monocytes % (Manual) 5.0 Eosinophils % (Manual) 5.0 H Metamyelocytes % 1.0 H Myelocytes % 1.0 H Neutrophils # (Manual) 9867 H RBC Morphology Not Reportable Hypochromasia 1+ H Anisocytosis 1+ H Sodium 137 Potassium 4.3 Chloride 103 Carbon Dioxide 27 BUN 28 H Creatinine 1.10 Estimated GFR > 60.0 BUN/Creatinine Ratio 25.5 H Glucose 79 L Calcium 8.3 L Magnesium 1.7 Total Bilirubin AST ALT Alkaline Phosphatase Total Protein Albumin Globulin Albumin/Globulin Ratio Procalcitonin Anti-Streptolysin O Ab < 50 04/22/18 04/22/18 06:15 06:23 WBC RBC Hgb Hct MCV MCH MCHC RDW Plt Count Neut % (Auto) Lymph % (Auto) [place] % (Auto) Eos % (Auto) Baso % (Auto) Lymph # (Auto) [place] # (Auto) Baso # (Auto) Total Counted Seg Neutrophils % Band Neutrophils % Lymphocytes % (Manual) Atypical Lymphs % Monocytes % (Manual) Eosinophils % (Manual) Metamyelocytes % Myelocytes % Neutrophils # (Manual) RBC Morphology Hypochromasia Anisocytosis Sodium 135 L Potassium 4.5 Chloride 99 Carbon Dioxide 30 BUN 28 H Creatinine 1.00 Estimated GFR > 60.0 BUN/Creatinine Ratio 28.0 H Glucose 107 Calcium 8.2 L Magnesium Total Bilirubin 0.4 AST 43 ALT 26 Alkaline Phosphatase 230 H Total Protein 6.4 Albumin 2.7 L Globulin 3.7 Albumin/Globulin Ratio 0.7 L Procalcitonin 1.58 H Anti-Streptolysin O Ab Assessment & Plan Assessment Narrative: Brent Taylor is a 67-year-old paraplegic gentleman with a neurogenic bladder with chronic indwelling Veloz catheter for the last 8 years and pneumonia/urosepsis infections 3-4 times per year who presented for increased confusion, decreased urinary output, febrile who was admitted for acute sepsis secondary to UTI from chronic indwelling Veloz catheter as well as likely pneumonia. Plan: 1. Septic shock, present on admission. Resolved. -WBC markedly improved, BP normalized, afebrile, has been off pressors and volume resuscitation. -blood cultures negative. -discontinue ertapenem and start Levaquin for UTI and pneumonia (see below). 2. Acute recurrent catheter associated UTI, present on admission. Resolving. -urine culture positive for Klebsiella sensitive to multiple antibiotics except resistant to ampicillin. -patient with chronic [place] urinary retention and has Veloz at home. Veloz catheter changed in the ED. -Levaquin 750 mg by mouth daily 3. Acute bacterial pneumonia, present on admission. Resolving. -sputum culture positive for stenotrophomonas sensitive to Levaquin and Bactrim. -repeat chest x-ray showing bibasilar consolidation consistent with pneumonia -still getting mucus plugging intermittently will with drops in O2 sat -Levaquin 750 mg by mouth daily 4. Acute hypoxic respiratory failure. Active. -he has intermittent drops in O2 sat likely due to mucous plugging. -also he got aggressively volume resuscitated and still is ahead by about 6 L in his input versus output -continue CPAP support, incentive spirometry -Xopenex 0.63 mg neb q.6 hours -Lasix 20 mg IV x1 additional dose 5. Acute kidney injury, present on admission. Resolved. -last creatinine 1.0. Initial creatinine 1.6. 6. Anemia of chronic disease, present on admission. Active, stable. -patient did received 2 units PRBC during this admission 7. Diabetes mellitus type 2, insulin using, present on admission. Stable. -continue patient's usual insulin regimen 8. Paraplegia with pressure ulcerations, present on admission. Stable. -His paraplegia is stable but contributing to his minimal sacral and heel pressure ulcers. Pressure offloading has been done with soft heel boots and frequent turning at home and will be continued here. -His family are in close attendance and his obviously has been managing this as well as possible. His is adamant to continue to manage his care including turns and wound care while in hospital which was discussed in depth and due to liability per for staff to continue management. -Consulted wound care nurse, pending. 9. Hypertension, chronic, present on admission. Stable. -losartan restarted Disposition: Patient with improving course and likely needs 1 more day in hospital to improve O2 sats prior to discharge home.
[2018-04-22] MEDS: POTASSIUM CHLORIDE 20 MEQ TAB PO (10:05)
[2018-04-22] MEDS: levoFLOXacin 250 MG TABLET 750 MG PO (10:05)
[2018-04-22] MEDS: FUROSEMIDE 20 MG/2 ML VIAL IV (10:05)
[2018-04-22] MEDS: LEVALBUTEROL 0.63 MG/3 ML NEB INH ×2 (11:46→17:25)
--- NOTE | 2018-04-22 12:55 | CM.DPC ---
DCP Cont: has been at bedside. Reached out to her yesterday, requested [facility]. At this time, patient is continuing to work with respiratory therapy. Is needing oxygen at this time, and goals at discharge are to get him weaned off oxygen. Patient does not have oxygen at home. Patient is also being treated for catheter associated urinary tract infection. P: DCP to continue to follow closely. Could possibly be discharged home tomorrow, depending upon his oxygen sats. Shawna Rand RN/Cat Swamper
[2018-04-22] MEDS: CALMOSEPTINE 1 EACH TOP (13:03)
[2018-04-22 17:19] LABS: PCO2 ABG 67.4 mmHg (35-45)
[2018-04-22 17:22] LABS: HCO3 ABG 33 mmol/L (22-26); Oxygen Saturation ABG 96 % (95-100); PO2 ABG 90 mmHg (80-100); TCO2 ABG 35 mmol/L (21-31)
[2018-04-22 17:23] LABS: Fractionated Inspired Oxygen 4
[2018-04-22 20:27] LABS: PCO2 ABG 72.6 mmHg (35-45); pH ABG 7.27 (7.35-7.45)
[2018-04-22 20:28] LABS: Fractionated Inspired Oxygen 32; HCO3 ABG 33 mmol/L (22-26); Oxygen Saturation ABG 95 % (95-100); PO2 ABG 92 mmHg (80-100); TCO2 ABG 35 mmol/L (21-31)
[2018-04-22] MEDS: GABAPENTIN 300 MG CAPSULE PO (20:56)
[2018-04-22] MEDS: INSULIN GLARGINE 100 UNIT/ML 3ML PEN 30 UNIT SUBCUT (21:02)
--- NOTE | 2018-04-22 22:53 | PC.NURSE ---
rebecca note pt received from acute care. Lungs with rhonchi and wheezes, on 5 L NC. Pt used cough assist prior to initiating bipap. No change in breath sounds. Cough is loose and moist. large amount of yellow mucous removed with cough assist. Pt unable to expectorate phlegm into mouth independently. Buttock wounds not assessed at this time.
[2018-04-23] VITALS (18 sets, daily range): BP systolic 101–137; BP diastolic 49–68; PULSE 74–115; RESP 10–28; TEMP 36.1–37; O2SAT 94–99
[2018-04-23 00:12] LABS: HCO3 ABG 35 mmol/L (22-26); Oxygen Saturation ABG 98 % (95-100); PCO2 ABG 71.8 mmHg (35-45); PO2 ABG 132 mmHg (80-100); TCO2 ABG 37 mmol/L (21-31)
[2018-04-23 00:13] LABS: Fractionated Inspired Oxygen 40
[2018-04-23] MEDS: OXYCODONE IR 5 MG TABLET 15 MG PO (03:07)
[2018-04-23] MEDS: LEVALBUTEROL 0.63 MG/3 ML NEB INH ×3 (06:11→18:23)
[2018-04-23 06:32] LABS: Magnesium 1.7 mg/dL (1.6-2.3)
[2018-04-23 06:33] LABS: Fractionated Inspired Oxygen 40; HCO3 ABG 37 mmol/L (22-26); Oxygen Saturation ABG 99 % (95-100); PO2 ABG 146 mmHg (80-100); TCO2 ABG 39 mmol/L (21-31); pH ABG 7.33 (7.35-7.45)
[2018-04-23] MEDS: ENOXAPARIN 40 MG/0.4 ML SYRINGE SUBCUT (08:32)
[2018-04-23] MEDS: BACLOFEN 10 MG TABLET 5 MG PO ×2 (08:33→21:05)
[2018-04-23] MEDS: levoFLOXacin 250 MG TABLET 750 MG PO (08:34)
[2018-04-23] MEDS: SENNOSIDES 8.6 MG TABLET 17.2 MG PO (08:35)
[2018-04-23] MEDS: DOCUSATE 100 MG CAPSULE 200 MG PO ×2 (08:35→21:07)
[2018-04-23] MEDS: guaiFENesin ER 600 MG TAB 1200 MG PO ×2 (08:36→21:08)
[2018-04-23] MEDS: CHOLECALCIFEROL (VITAMIN D3) 1,000 UNIT TABLET 3000 UNIT PO (08:37)
[2018-04-23] MEDS: VENLAFAXINE ER 37.5 MG CAP PO (08:39)
[2018-04-23] MEDS: LOSARTAN 25 MG TABLET PO (08:39)
[2018-04-23] MEDS: MORPHINE ER 30 MG TABLET PO ×2 (08:56→21:20)
[2018-04-23 11:36] LABS: Blood Urea Nitrogen 27 mg/dL (9-20); Calcium 8.3 mg/dL (8.4-10.2); Carbon Dioxide 36 mmol/L (22-32); Chloride 95 mmol/L (98-107); Estimated Glomerular Filt Rate > 60.0 mL/min (>60); Glucose 118 mg/dL (80-110); HEMOLYSIS < 15 (0-50); Potassium 4.5 mmol/L (3.4-5.1); Sodium 135 mmol/L (137-145)
--- NOTE | 2018-04-23 12:11 | PM.PN.1 ---
Subjective Date Patient Seen: 04/23/18 Interval history: Brent Taylor is a 67-year-old paraplegic gentleman with a neurogenic bladder with chronic indwelling Veloz catheter for the last 8 years and pneumonia/urosepsis infections 3-4 times per year who was admitted for acute sepsis secondary to UTI from chronic indwelling Veloz catheter and pneumonia. Patient moved back to ICU last night due to increasingly lethargic with worsening hypoxia and CO2 retention on ABG. He was placed on BiPAP during duration of the night. This morning he is off of BiPAP, much more alert and oriented, and better able to cough and mobilized sputum on his own. Exam Vital Signs (past 8 hours): - 04/23/18 07:00 04/23/18 08:00 04/23/18 08:39 Temperature 97.0 F L Pulse Rate 74 115 H Respiratory Rate 14 Blood Pressure 128/60 Pulse Oximetry 98 99 04/23/18 11:55 Temperature 97.5 F L Pulse Rate 75 Respiratory Rate 16 Blood Pressure 121/53 L Pulse Oximetry 97 Fraction of Inspired Oxygen 26 Oxygen Delivery Method BiPAP Oxygen Flow Rate 4 Narrative Exam Narrative: General: Alert, improved verbal response, looks fairly comfortable HEENT: Pupils equal and reactive CHEST: Improved breath sounds with mild bilateral rhonchi anteriorly ABDOMEN: Obese, nontender EXTREMITIES: Still slightly edematous in upper extremities, no pretibial edema Neurological: Paraplegic and unable to move bilateral lower extremities Skin:Normal temperature, turgor, and texture; no rash, ulcers, or subcutaneous nodules appreciated. Chronic pressure ulcers on bilateral heels healing well, two small 1-2 cm pressure ulcerations on the sacrum to do not appear infected. NEUROLOGICAL: Alert, lower extremity paraplegia SKIN: Warm, dry, no petechiae, no rash Objective Labs Result Diagrams: 04/22/18 06:15 04/23/18 11:05 Labs: Laboratory Results - last 24 hr 04/22/18 04/22/18 04/22/18 16:48 20:19 23:45 ABG pH 7.30 L 7.27 L* 7.30 L ABG pCO2 67.4 H* 72.6 H* 71.8 H* ABG pO2 90 92 132 H ABG HCO3 33 H 33 H 35 H ABG Total CO2 35 H 35 H 37 H ABG O2 Saturation 96 95 98 ABG Base Excess 7.0 H 6.0 H 9.0 H FiO2 4 32 40 Sodium Potassium Chloride Carbon Dioxide BUN Creatinine Estimated GFR BUN/Creatinine Ratio Glucose Calcium Magnesium 04/23/18 04/23/18 04/23/18 05:35 06:22 11:05 ABG pH 7.33 L ABG pCO2 71.0 H* ABG pO2 146 H ABG HCO3 37 H ABG Total CO2 39 H ABG O2 Saturation 99 ABG Base Excess 11.0 H FiO2 40 Sodium 135 L Potassium 4.5 Chloride 95 L Carbon Dioxide 36 H BUN 27 H Creatinine 0.90 Estimated GFR > 60.0 BUN/Creatinine Ratio 30.0 H Glucose 118 H Calcium 8.3 L Magnesium 1.7 Assessment & Plan Assessment Narrative: Brent Taylor is a 67-year-old paraplegic gentleman with a neurogenic bladder with chronic indwelling Veloz catheter for the last 8 years and pneumonia/urosepsis infections 3-4 times per year who presented for increased confusion, decreased urinary output, febrile who was admitted for acute sepsis secondary to UTI from chronic indwelling Veloz catheter as well as likely pneumonia. Plan: 1. Septic shock, present on admission. Resolved. -WBC markedly improved, BP normalized, afebrile, has been off pressors and volume resuscitation. -blood cultures negative, positive urine Legionella PCR, sputum positive for stenotrophomonas, urine culture positive for Klebsiella -continue Levaquin for both UTI and pneumonia (see below) for 7-10 day course. 2. Acute recurrent catheter associated UTI, present on admission. Resolving. -urine culture positive for Klebsiella sensitive to multiple antibiotics except resistant to ampicillin. -patient with chronic urinary retention and has Veloz at home. Veloz catheter changed in the ED. -continue Levaquin 750 mg by mouth daily for 7-10 day course 3. Acute bacterial pneumonia, present on admission. Resolving. -positive urine Legionella PCR -sputum culture positive for stenotrophomonas sensitive to Levaquin and Bactrim. -repeat chest x-ray showing bibasilar consolidation consistent with pneumonia -Levaquin 750 mg by mouth daily for 7-10 day course 4. Acute hypoxic and hypercapnic respiratory failure. Active. -patient with severe neuromuscular weakness contributing to respiratory failure, responding to BiPAP, currently on 2 L N/C -last ABG on AM 04/23/2018: PH 7.33, pCO2 71, PO2 146; pCO2 on admit was 51.7 with pH 7.29 -continue BiPAP support in ICU, also requested RT evaluation for Trilogy device to replace patient's CPAP at home -has copious secretions mobilized with his own cough assist device -has intermittent drops in O2 sat likely due to mucous plugging. -patient got diuresed with IV Lasix due to prior volume resuscitation, likely now close to euvolemic or slightly volume contracted, doubt accuracy of daily weights -continue pneumonia treatment -continue Xopenex 0.63 mg neb q.6 hours 5. Acute kidney injury, present on admission. Resolved. -last creatinine 0.9. Initial creatinine 1.6. 6. Anemia of chronic disease, present on admission. Active, stable. -patient did received 2 units PRBC during this admission 7. Diabetes mellitus type 2, insulin using, present on admission. Stable. -continue patient's usual insulin regimen 8. Paraplegia with pressure ulcerations, present on admission. Stable. -His paraplegia is stable but contributing to his minimal sacral and heel pressure ulcers. Pressure offloading has been done with soft heel boots and frequent turning at home and will be continued here. -His family are in close attendance and his obviously has been managing this as well as possible. His is adamant to continue to manage his care including turns and wound care while in hospital which was discussed in depth and due to liability per for staff to continue management. -Consulted wound care nurse, pending. 9. Hypertension, chronic, present on admission. Stable. -losartan restarted Disposition: Patient with fluctuating course. Likely needs to be here through weekend.
--- NOTE | 2018-04-23 14:27 | RT ---
Addendum entered by Jarek Weston, RT 04/23/18 17:07: Monique from [facility] came. A [employer] Chest Vest also will be ordered to help loosen/mobilize secretins. Ernie very concerned at their secondary insurance may not pay the 20% cost for the Trilogy and Chest Vest, and was adamant about not persuing these modalities until she was 100% sure they would not have any cost incurred themselves. Monique will follow up with her billing office on Thursday, and hope to have the RT deliver the devices on hoped discharge day of Thursday, per Dr Huerta Original Note: RT Note: at 0800, pt was able to come off the hospital Bipap machine and placed to standard nasal cannula, 2 lpm with o2 sats at 97%. Pt has no complaints of dyspnea. Lung sounds clear and distant. Pt has loose, weak nonprod cough. Encouraged to DB&C often, and infact, pt has cough assist device. Also noted pt has a CPAP machine in room, he apparently used it last few nights here, but last night became very obtunded and lethargic. ABGs drawn, pt placed to hospital Bipap, with no improvement in ABGs (CO2 in 70's). Pt is now alert X 3 (he is unsure of date, but he knows who is the President his ). Pt is pleasant. After further interview, pt's (Ernie) said his CPAP and cough [place] came [place] (note-[facility] not [facility] demo sheet for insurances, but Ernie said the [facility] does, infact take care of him as he is a honorably discharged that had a catastrophic event occur, and this is the only instance where [place] covers a patient for medical that is not a true [facility] disabled vet. Again, this is from Ernie. She also said the CPAP machine was very old, and the [facility] did not do a sleep study, just issued him a CPAP machine after Ernie complained the pt has prolonged periods of apnea and snoring. Pt was placed on capnography after removing Bipap, and ETCo2 ranged from 50-60 mmhg. Pt is not lethargic. A discussion was had with hospitalist and myself about acquisition of a Trilogy [facility]. A call was first placed by Ernie to ask if the [facility] would provide a Trilogy. [facility] said they could not provide a Trilogy if pt was not admitted at their facility. [facility] was called, and per [employer] Raymond, they could not provide Trilogy for non-COPD diagnosis. I then called Monique at [facility] who accepted the patient and the Trilogy request, and she will come later today to get the ball rolling. Demo sheet, H&P, ABGs and progress notes were faxed to [facility]. Dr Huerta informed.
[2018-04-23] MEDS: SODIUM CHLORIDE 0.9% FLUSH 10 ML IV ×2 (14:32→21:11)
[2018-04-23] MEDS: INSULIN ASPART 100 UNIT/ML INSULN PEN 12 UNIT SUBCUT (17:11)
[2018-04-23] MEDS: GABAPENTIN 300 MG CAPSULE PO (21:08)
[2018-04-23] MEDS: clonazePAM 0.5 MG TABLET 0.25 MG PO (21:14)
--- NOTE | 2018-04-23 21:34 | PC.NURSE ---
2129- Patient c/o his mouth hurting. Upon inspection patient found to have thrush. notified and orders rec.
[2018-04-23] MEDS: NYSTATIN SUSP 500,000 UNIT/5 ML UDC 500000 UNIT PO (21:55)
[2018-04-24] VITALS (18 sets, daily range): BP systolic 116–147; BP diastolic 45–69; PULSE 68–96; RESP 10–24; TEMP 36.3–37.2; O2SAT 88–99
[2018-04-24] MEDS: OXYCODONE IR 5 MG TABLET 15 MG PO (04:41)
--- NOTE | 2018-04-24 07:49 | P.PN_ITS ---
Subjective Interval history: Brent Taylor is a 67-year-old paraplegic gentleman with a neurogenic bladder with chronic indwelling Veloz catheter for the last 8 years and pneumonia/urosepsis infections 3-4 times per year who was admitted for acute sepsis secondary to UTI from chronic indwelling Veloz catheter and pneumonia. Evening of 04/22/2018 he was moved back to ICU due to increasingly lethargic with worsening hypoxia and CO2 retention with pCO2 of 72.6 and pH of 7.27 on ABG. He was placed on BiPAP during duration of the night. The morning of 04/22/2018 he is off of BiPAP, he was more alert and oriented, and better able to cough and mobilized sputum on his own. His ABGs revealed a pH of 7.33 P CO2 of 71.0 PO2 146 bicarb 37 % saturation 99 on FI02 of 40% However today reports he is not quite as clear as he was yesterday and she is concerned that his CO2 level has increased. There is no increased shortness of breath, tachypnea. Exam Vital Signs (past 8 hours): - 04/24/18 00:12 04/24/18 04:52 04/24/18 06:10 Temperature 97.6 F 97.6 F Pulse Rate 81 96 H 68 Respiratory Rate 15 18 12 Blood Pressure 116/50 L 147/68 H Pulse Oximetry 99 97 98 Fraction of Inspired Oxygen 30 Oxygen Delivery Method Nasal Cannula Oxygen Flow Rate 2 Narrative Exam Narrative: General: Laying in bed NAD with nasal cannula in place HEENT: Pupils equal and reactive CHEST: Mild bilateral rhonchi anteriorly ABDOMEN: Obese, nontender EXTREMITIES: Trace to 1+ bilateral lower extremity edema while full boots in place bilaterally Neurological: Paraplegic and unable to move bilateral lower extremities Skin: Chronic pressure ulcers on bilateral heels healing well, two small 1-2 cm pressure ulcerations on the sacrum to do not appear infected. NEUROLOGICAL: lower extremity paraplegia SKIN: Warm, dry, no petechiae, no rash PSYCHOLOGICAL: Patient drowsy but easily arousable and conversant. Affect is flat Objective Labs Result Diagrams: 04/22/18 06:15 04/23/18 11:05 Labs: Laboratory Results - last 24 hr 04/23/18 11:05 Sodium 135 L Potassium 4.5 Chloride 95 L Carbon Dioxide 36 H BUN 27 H Creatinine 0.90 Estimated GFR > 60.0 BUN/Creatinine Ratio 30.0 H Glucose 118 H Calcium 8.3 L Assessment & Plan Assessment Narrative: . Septic shock, present on admission. Resolved. -WBC markedly improved, BP normalized, afebrile, has been off pressors and volume resuscitation. -blood cultures negative, positive urine Legionella PCR, sputum positive for stenotrophomonas, urine culture positive for Klebsiella -continue Levaquin for both UTI and pneumonia (see below) for 7-10 day course. 2. Acute recurrent catheter associated UTI, present on admission. Resolving. -urine culture positive for Klebsiella sensitive to multiple antibiotics except resistant to ampicillin. -patient with chronic urinary retention and has Veloz at home. Veloz catheter changed in the ED. -continue Levaquin 750 mg by mouth daily for 7-10 day course 3. Acute bacterial pneumonia, present on admission. Resolving. -positive urine Legionella PCR -sputum culture positive for stenotrophomonas sensitive to Levaquin and Bactrim. -repeat chest x-ray showing bibasilar consolidation consistent with pneumonia -Levaquin 750 mg by mouth daily for 7-10 day course 4. Acute hypoxic and hypercapnic respiratory failure. Active. -patient with severe neuromuscular weakness contributing to respiratory failure, responding to BiPAP, currently on 2 L N/C -ABG today reveals pH 7.35 pCO2 66.1 P O2 86 bicarb 36 O2 saturation 96% on 2 L -continue BiPAP support in ICU - patient to be discharged on Trilogy device which will replace patient's CPAP at home -has copious secretions mobilized with his own cough assist device -has intermittent drops in O2 sat likely due to mucous plugging. -patient got diuresed with IV Lasix due to prior volume resuscitation, likely n ow close to euvolemic or slightly volume contracted, doubt accuracy of daily weights -continue pneumonia treatment -continue Xopenex 0.63 mg neb q.6 hours 5. Acute kidney injury, present on admission. Resolved. -last creatinine 0.9. Initial creatinine 1.6. -BMP in a.m. 6. Anemia of chronic disease, present on admission. Active, stable. -patient did received 2 units PRBC during this admission 7. Diabetes mellitus type 2, insulin using, present on admission. Stable. -continue patient's usual insulin regimen 8. Paraplegia with pressure ulcerations, present on admission. Stable. -His paraplegia is stable but contributing to his minimal sacral and heel pressure ulcers. Pressure offloading has been done with soft heel boots and frequent turning at home and will be continued here. -His family are in close attendance and his obviously has been managing this as well as possible. His is adamant to continue to manage his care including turns and wound care while in hospital which was discussed in depth and due to liability per for staff to continue management. -Consulted wound care nurse, pending. 9. Hypertension, chronic, present on admission. Stable. -losartan restarted Disposition: Patient still with fluctuating course. Likely needs to be here through weekend.
[2018-04-24] MEDS: MORPHINE ER 30 MG TABLET PO ×2 (08:18→20:58)
[2018-04-24] MEDS: LEVALBUTEROL 0.63 MG/3 ML NEB INH ×2 (08:50→14:37)
[2018-04-24 09:02] LABS: PCO2 ABG 66.1 mmHg (35-45); pH ABG 7.35 (7.35-7.45)
[2018-04-24 09:03] LABS: HCO3 ABG 36 mmol/L (22-26); Oxygen Saturation ABG 96 % (95-100); PO2 ABG 86 mmHg (80-100); TCO2 ABG 38 mmol/L (21-31)
[2018-04-24 09:04] LABS: Fractionated Inspired Oxygen 2
[2018-04-24] MEDS: DOCUSATE 100 MG CAPSULE 200 MG PO ×2 (09:51→20:59)
[2018-04-24] MEDS: CHOLECALCIFEROL (VITAMIN D3) 1,000 UNIT TABLET 3000 UNIT PO (09:52)
[2018-04-24] MEDS: LOSARTAN 25 MG TABLET PO (09:53)
[2018-04-24] MEDS: VENLAFAXINE ER 37.5 MG CAP PO (09:54)
[2018-04-24] MEDS: ENOXAPARIN 40 MG/0.4 ML SYRINGE SUBCUT (09:54)
[2018-04-24] MEDS: guaiFENesin ER 600 MG TAB 1200 MG PO ×2 (09:56→20:59)
[2018-04-24] MEDS: INSULIN ASPART 100 UNIT/ML INSULN PEN 12 UNIT SUBCUT ×2 (10:00→17:06)
[2018-04-24] MEDS: BACLOFEN 10 MG TABLET 5 MG PO ×2 (10:01→20:56)
[2018-04-24] MEDS: CALMOSEPTINE 1 EACH TOP (10:22)
[2018-04-24] MEDS: NYSTATIN SUSP 500,000 UNIT/5 ML UDC 500000 UNIT PO ×4 (10:23→21:00)
[2018-04-24] MEDS: SODIUM CHLORIDE 0.9% FLUSH 10 ML IV ×2 (10:23→21:01)
[2018-04-24] MEDS: levoFLOXacin 250 MG TABLET 750 MG PO (11:30)
--- NOTE | 2018-04-24 14:51 | PC.NURSE ---
Am shift Pt noted with decreased mentation this AM. Per , BG decreased and juice had been provided, AM BG 114 at recheck, Dr Duran into see Pt, ABG obtained. aware of elevated CO2. RT working with weaning O2 down this shift, 1L Spo2 96% ET CO2 monitor in place. Calmoseptine applied to OA to buttocks. Heels remain floated, allyven in place, CDI. Scabbing to R ABD healing burn, per . Offloading side to side and pressure relief mattress in place.
[2018-04-24] MEDS: LEVALBUTEROL 1.25 MG/0.5 ML NEB 0.63 MG INH (19:02)
[2018-04-24] MEDS: BISACODYL 10 MG SUPP PR (19:44)
[2018-04-24] MEDS: clonazePAM 0.5 MG TABLET 0.25 MG PO (20:57)
[2018-04-24] MEDS: GABAPENTIN 300 MG CAPSULE PO (20:59)
[2018-04-24] MEDS: TRAZODONE 50 MG TABLET PO (21:02)
--- NOTE | 2018-04-24 22:50 | RT ---
PT IS NOT TOLERATING V60 BIPAP AT THIS TIME, AND IS REQUESTING HIS HOME CPAP. IN ROOM IS ASSISTING. O2 BLEED-IN OF 2.5 LPM NOTED. O2 SAT NOTED AT 93%.
[2018-04-25] VITALS (14 sets, daily range): BP systolic 118–145; BP diastolic 44–66; PULSE 75–93; RESP 12–26; TEMP 36.3–37.2; O2SAT 88–100
--- NOTE | 2018-04-25 01:01 | PC.NURSE ---
Pt declining turning at this time. Pt and his at bedside also requesting to be left alone overnight as much as possible so he can get more rest. They state they will call if they need something but otherwise would like left alone and decline any turning unless asked.
[2018-04-25] MEDS: LEVALBUTEROL 1.25 MG/0.5 ML NEB 0.63 MG INH ×3 (09:19→21:34)
[2018-04-25] MEDS: BACLOFEN 10 MG TABLET 5 MG PO ×2 (09:39→20:53)
[2018-04-25] MEDS: DOCUSATE 100 MG CAPSULE 200 MG PO ×2 (09:40→20:54)
[2018-04-25] MEDS: guaiFENesin ER 600 MG TAB 1200 MG PO ×2 (09:40→20:54)
[2018-04-25] MEDS: ENOXAPARIN 40 MG/0.4 ML SYRINGE SUBCUT (09:40)
[2018-04-25] MEDS: levoFLOXacin 250 MG TABLET 750 MG PO (09:40)
[2018-04-25] MEDS: CHOLECALCIFEROL (VITAMIN D3) 1,000 UNIT TABLET 3000 UNIT PO (09:40)
[2018-04-25] MEDS: MORPHINE ER 30 MG TABLET PO ×2 (09:41→20:55)
[2018-04-25] MEDS: LOSARTAN 25 MG TABLET PO (09:41)
[2018-04-25] MEDS: NYSTATIN SUSP 500,000 UNIT/5 ML UDC 500000 UNIT PO ×4 (09:45→20:54)
[2018-04-25] MEDS: VENLAFAXINE ER 37.5 MG CAP PO (09:45)
[2018-04-25] MEDS: SODIUM CHLORIDE 0.9% FLUSH 10 ML IV ×2 (09:45→20:56)
[2018-04-25] MEDS: CALMOSEPTINE 1 EACH TOP (11:47)
[2018-04-25] MEDS: ACETAMINOPHEN 325 MG TABLET 650 MG PO (12:25)
[2018-04-25] MEDS: INSULIN ASPART 100 UNIT/ML INSULN PEN 12 UNIT SUBCUT (12:26)
[2018-04-25] MEDS: INSULIN ASPART 100 UNIT/ML INSULN PEN SUBCUT (12:26)
--- NOTE | 2018-04-25 15:31 | PC.NURSE ---
Dayshift Note: Pt received laying in bed, pt preferred to sleep until breakfast. Pt with heels floated in specialized boots, feet inspected and noted to have 2 areas above bony prominences on left medial aspect that were suspected DTIs. Periwound erythema was blanchable with an inner center of intact skin that was dark red and non-blanchable. Pt also had 2 areas on R medial aspect of feet that were blanchable and receded with the shift. Pt's states that pt often has these types of pressure spots on feet. Foot board added to end of bed this shift to allow for more room in bed so pt's feet don't press against foot-board. Wound care done on heels, abdomen, L ischial tuberosity and gluteal fold. Pt turned to offload pressure and is on pressure reducing surface Big Boy Bed. Will continue to monitor, notify MD with changes.
--- NOTE | 2018-04-25 15:54 | CM.DPC ---
DCP: continued: Case discussed today in Team Rounds. Dr. Duran reports that pt is approaching readiness for d/c and plan is for a Trilogy to be placed. RT is following re this. P: home with 's continued care when stable for same.
[2018-04-25] MEDS: OXYCODONE IR 5 MG TABLET 15 MG PO (16:42)
--- NOTE | 2018-04-25 17:52 | PM.PN.1 ---
Subjective Interval history: Brent Taylor is a 67-year-old paraplegic gentleman with a neurogenic bladder with chronic indwelling Veloz catheter for the last 8 years and pneumonia/urosepsis infections 3-4 times per year who presented for increased confusion, decreased urinary output, febrile who was admitted for acute sepsis secondary to UTI from chronic indwelling Veloz catheter and likely pneumonia. The patient became he became acutely hypoxemic again 04/22/2018 into low 80s and O2 was provided with a CPAP Evening of 04/22/2018 the patient became more confused. ABGs revealed increased CO2 in the knees. The patient is transferred to the ICU and placed on BiPAP. Since then the patient's confusional state has resolved This morning the patient was seen was without any confusion he was alert talkative coherent without any significant shortness of breath and had his nasal BiPAP mask on. Exam Vital Signs (past 8 hours): - 04/25/18 10:30 04/25/18 12:00 04/25/18 12:25 Temperature 99.0 F 99 F Pulse Rate 90 Respiratory Rate 15 Blood Pressure 123/45 L Pulse Oximetry 88 L 96 04/25/18 15:00 04/25/18 16:17 Temperature 98.3 F Pulse Rate 83 76 Respiratory Rate 26 H 18 Blood Pressure 134/59 L Pulse Oximetry 100 99 Fraction of Inspired Oxygen 30 Oxygen Delivery Method Nasal Cannula Oxygen Flow Rate 1 Narrative Exam Narrative: General: Laying in bed NAD with nasal CPAP in place HEENT: Pupils equal and reactive CHEST: Clear on anterior auscultation ABDOMEN: Obese, nontender bowel sounds present EXTREMITIES: Trace to 1+ bilateral lower extremity edema while waffle boots in place bilaterally Neurological: Paraplegic and unable to move bilateral lower extremities Skin: Chronic pressure ulcers on bilateral heels healing well, two small 1-2 cm pressure ulcerations on the sacrum to do not appear infected. NEUROLOGICAL: lower extremity paraplegia SKIN: Warm, dry, no petechiae, no rash PSYCHOLOGICAL: Awake alert oriented x3 Objective Labs Result Diagrams: 04/22/18 06:15 04/23/18 11:05
[2018-04-25] MEDS: clonazePAM 0.5 MG TABLET 0.25 MG PO (20:53)
[2018-04-25] MEDS: GABAPENTIN 300 MG CAPSULE PO (20:54)
[2018-04-25] MEDS: INSULIN GLARGINE 100 UNIT/ML 3ML PEN 30 UNIT SUBCUT (20:55)
[2018-04-25] MEDS: TRAZODONE 50 MG TABLET PO (20:57)
--- NOTE | 2018-04-25 21:47 | PC.NURSE ---
2100 - Pt BG at dinner time was 107, Pt and his declined insulin. at home we wait and see how much he eats. Scheduled 12 units insulin held per request, no sliding scale coverage needed. At 1930 pt reports feeling like my sugar is high. BG check 203. Discussed insulin coverage with pt and Jn. Decline intervention at this time. Agreeable to recheck at HS and follow orders. 2100 BG 150, no sliding scale coverage needed, pt and Jn agreeable to lantus dose as ordered 30 units given. Pt able to take po meds at HS. Assist to position for comfort. PICC line drsg change. Call light in reach. RT to discuss bi-pap vs c-pap.
[2018-04-26] VITALS (16 sets, daily range): BP systolic 128–156; BP diastolic 58–75; PULSE 65–89; RESP 14–20; TEMP 36.1–37.4; O2SAT 91–100
[2018-04-26 05:43] LABS: BUN Creatinine Ratio 22.2 (6-22); Blood Urea Nitrogen 20 mg/dL (9-20); Calcium 8.2 mg/dL (8.4-10.2); Chloride 90 mmol/L (98-107); Estimated Glomerular Filt Rate > 60.0 mL/min (>60); Glucose 119 mg/dL (80-110); HEMOLYSIS < 15 (0-50); Magnesium 1.8 mg/dL (1.6-2.3); Potassium 4.6 mmol/L (3.4-5.1); Sodium 135 mmol/L (137-145)
[2018-04-26 05:44] LABS: Add Manual Diff / Slide Review NO; Basophils Absolute Auto 100 /uL (0-100); Basophils Percent Auto 0.4 % (0-2); Eosinophils Absolute Auto 300 /uL (0-450); Eosinophils Percent Auto 1.6 % (2-4); Hematocrit 26.1 % (41-53); Hemoglobin 8.3 g/dL (13.5-17.5); Lymphocytes Absolute Auto 1600 /uL (1100-4500); Lymphocytes Percent Auto 10.2 % (25-40); Mean Corpuscular Hemoglobin 28.7 PG (26-34); Mean Corpuscular Volume 89.7 fL (80-100); Monocytes Absolute Auto 900 /uL (0-900); Monocytes Percent Auto 5.4 % (3-14); Neutrophils Absolute Auto 13200 /uL (1500-7000); Neutrophils Percent Auto 82.4 % (50-75); Platelet Count 309 X10^3/uL (150-400); Red Cell Distribution Width 16.8 % (11.6-14.8)
[2018-04-26 05:56] LABS: Carbon Dioxide 40 mmol/L (22-32)
--- NOTE | 2018-04-26 06:43 | PC.NURSE ---
Patient slept with own Cpap on, 1-2.5L O2 bleed-in to keep SpO2 88-92%, breath sounds quiet and slightly coarse on Rt, denies dyspnea, pain , or shortness of breath. SR, BP stable, afebrile.
--- NOTE | 2018-04-26 08:28 | RT ---
Patient is eating breakfast at this time and wants to wait to do his breathing treatment. No respiratory distress noted. SpO2 95% on 1L NC. Will check back with him after breakfast.
[2018-04-26] MEDS: INSULIN ASPART 100 UNIT/ML INSULN PEN SUBCUT (09:28)
[2018-04-26] MEDS: INSULIN ASPART 100 UNIT/ML INSULN PEN 12 UNIT SUBCUT (09:29)
[2018-04-26] MEDS: BACLOFEN 10 MG TABLET 5 MG PO ×2 (09:30→21:03)
[2018-04-26] MEDS: levoFLOXacin 250 MG TABLET 750 MG PO (09:30)
[2018-04-26] MEDS: DOCUSATE 100 MG CAPSULE 200 MG PO ×2 (09:31→21:03)
[2018-04-26] MEDS: ENOXAPARIN 40 MG/0.4 ML SYRINGE SUBCUT (09:31)
[2018-04-26] MEDS: guaiFENesin ER 600 MG TAB 1200 MG PO ×2 (09:31→21:08)
[2018-04-26] MEDS: VENLAFAXINE ER 37.5 MG CAP PO (09:32)
[2018-04-26] MEDS: CHOLECALCIFEROL (VITAMIN D3) 1,000 UNIT TABLET 3000 UNIT PO (09:32)
[2018-04-26] MEDS: NYSTATIN SUSP 500,000 UNIT/5 ML UDC 500000 UNIT PO ×4 (09:33→21:02)
[2018-04-26] MEDS: LOSARTAN 25 MG TABLET PO (09:33)
[2018-04-26] MEDS: MORPHINE ER 30 MG TABLET PO ×2 (09:35→21:00)
--- NOTE | 2018-04-26 12:52 | CM.DPC ---
Addendum entered by Shawna Rand R.N. 04/26/18 13:11: Did get in touch with Monique at [facility], who spent some time with patient and hospitalist. Went over coverage for trilogy machine. She stated that patient's has an understanding, and stated that when patient is ready to be discharged, to contact them. Can update hospitalist as well. Original Note: DCP Cont: Patient's discharge is pending upon having trilogy device secondary to respiratory failure. Discussed patient at rounds, and hospitalist was questioning on when this would be delivered. Let her know that respiratory therapy was working on it. Went ahead and left a message with Monique at [facility], who is the patient home care music therapist, to inquire on this. Was indicated in last note from hospitalist that patient would need this, and that BIPAP would not be sufficient alone. Will await call back from [facility], and will continue to collaborate with respiratory therapy as well. P: DCP will continue to follow closely. Plan is for home with trilogy. Shawna Rand RN/Cma
[2018-04-26] MEDS: LEVALBUTEROL 1.25 MG/0.5 ML NEB 0.63 MG INH ×2 (12:56→19:30)
[2018-04-26] MEDS: SODIUM CHLORIDE 0.9% FLUSH 10 ML IV ×2 (14:27→21:03)
[2018-04-26] MEDS: CALMOSEPTINE 1 EACH TOP (14:27)
--- NOTE | 2018-04-26 15:51 | PM.PN.1 ---
Subjective Date Patient Seen: 04/26/18 Interval history: Patient seen and examined chart reviewed. Care discussed with both patient and . Patient feels poorly today. He has had a low-grade fever of 99. His questions why he would have a fever given his being on antibiotics for some time. He is currently being treated for Legionella as stenotrophomonas pneumonia as well as urinary tract infection. His white count has improved but recently started to climb. His is concerned about him developing spiking fevers. She she would like for us to ensure that there is no evidence of infection. The patient himself reports shortness of breath. He reports feeling poorly all over. Exam Vital Signs (past 8 hours): - 04/26/18 08:00 04/26/18 11:31 04/26/18 11:35 Temperature 98.2 F 98.3 F Pulse Rate 86 Respiratory Rate 16 Blood Pressure 156/69 H Pulse Oximetry 95 97 04/26/18 11:47 04/26/18 12:57 04/26/18 13:22 Temperature 99.4 F 97.9 F Pulse Rate 78 65 Respiratory Rate 17 16 Blood Pressure 128/58 L Pulse Oximetry 97 97 Fraction of Inspired Oxygen 30 Oxygen Delivery Method Nasal Cannula Oxygen Flow Rate 1.5 Narrative Exam Narrative: Obese male ill-appearing Lungs: Decreased breath sounds with occasional crackles in the bases Cardiac exam: Regular rate and rhythm normal S1 and S2 with a 2/6 systolic ejection murmur Abdomen: Soft nontender nondistended without hepatosplenomegaly Extremities: No edema Neuro exam: Patient is slow to respond awake and alert and seems appropriate Skin exam: No lesions noted Objective Labs Result Diagrams: 04/26/18 05:20 04/26/18 05:20 Labs: Laboratory Results - last 24 hr 04/26/18 04/26/18 05:20 05:20 WBC 16.0 H RBC 2.90 L Hgb 8.3 L Hct 26.1 L MCV 89.7 MCH 28.7 MCHC 32.0 RDW 16.8 H Plt Count 309 Neut % (Auto) 82.4 H Lymph % (Auto) 10.2 L [place] % (Auto) 5.4 Eos % (Auto) 1.6 L Baso % (Auto) 0.4 Neut # (Auto) 43084 H Lymph # (Auto) 1600 [place] # (Auto) 900 Eos # (Auto) 300 Baso # (Auto) 100 Sodium 135 L Potassium 4.6 Chloride 90 L Carbon Dioxide 40 H* BUN 20 Creatinine 0.90 Estimated GFR > 60.0 BUN/Creatinine Ratio 22.2 H Glucose 119 H Calcium 8.2 L Magnesium 1.8 Assessment & Plan Assessment Narrative: Septic shock, present on admission, now resolved Legionella/stenotrophomonas pneumonia, present on admission, acute Current a continuing treatment Catheter associated urinary tract infection, present on admission Acute on chronic anemia, Acute on chronic respiratory failure, present on admission Acute kidney injury, present on admission, now resolved Plan Narrative: Will continue a 10 day course of IV levofloxacin as described. This will treat both his urinary tract infection as well as pneumonia. Patient has been seen by RT. He is set up for home trilogy. Will continue to monitor the patient closely given his increasing white count and low-grade fever. Went to determine that the patient is not spiking fevers and that his white count is stabilizing. Anticipate discharge home pending follow-up of above.
--- NOTE | 2018-04-26 15:55 | P.PN_ITS ---
Subjective Date Patient Seen: 04/26/18 Interval history: Patient seen and examined chart reviewed. Care discussed with both patient and . Patient feels poorly today. He has had a low-grade fever of 99. His questions why he would have a fever given his being on antibiotics for some time. He is currently being treated for Legionella as stenotrophomonas pneumonia as well as urinary tract infection. His white count has improved but recently started to climb. His is concerned about him developing spiking fevers. She she would like for us to ensure that there is no evidence of infection. The patient himself reports shortness of breath. He reports feeling poorly all over. Exam Vital Signs (past 8 hours): - 04/26/18 08:00 04/26/18 11:31 04/26/18 11:35 Temperature 98.2 F 98.3 F Pulse Rate 86 Respiratory Rate 16 Blood Pressure 156/69 H Pulse Oximetry 95 97 04/26/18 11:47 04/26/18 12:57 04/26/18 13:22 Temperature 99.4 F 97.9 F Pulse Rate 78 65 Respiratory Rate 17 16 Blood Pressure 128/58 L Pulse Oximetry 97 97 Fraction of Inspired Oxygen 30 Oxygen Delivery Method Nasal Cannula Oxygen Flow Rate 1.5 Narrative Exam Narrative: Obese male ill-appearing Lungs: Decreased breath sounds with occasional crackles in the bases Cardiac exam: Regular rate and rhythm normal S1 and S2 with a 2/6 systolic ejection murmur Abdomen: Soft nontender nondistended without hepatosplenomegaly Extremities: No edema Neuro exam: Patient is slow to respond awake and alert and seems appropriate Skin exam: No lesions noted Objective Labs Result Diagrams: 04/26/18 05:20 04/26/18 05:20 Labs: Laboratory Results - last 24 hr 04/26/18 04/26/18 05:20 05:20 WBC 16.0 H RBC 2.90 L Hgb 8.3 L Hct 26.1 L MCV 89.7 MCH 28.7 MCHC 32.0 RDW 16.8 H Plt Count 309 Neut % (Auto) 82.4 H Lymph % (Auto) 10.2 L [place] % (Auto) 5.4 Eos % (Auto) 1.6 L Baso % (Auto) 0.4 Neut # (Auto) 48430 H Lymph # (Auto) 1600 [place] # (Auto) 900 Eos # (Auto) 300 Baso # (Auto) 100 Sodium 135 L Potassium 4.6 Chloride 90 L Carbon Dioxide 40 H* BUN 20 Creatinine 0.90 Estimated GFR > 60.0 BUN/Creatinine Ratio 22.2 H Glucose 119 H Calcium 8.2 L Magnesium 1.8 Assessment & Plan Assessment Narrative: Septic shock, present on admission, now resolved Legionella/stenotrophomonas pneumonia, present on admission, acute Current a continuing treatment Catheter associated urinary tract infection, present on admission Acute on chronic anemia, Acute on chronic respiratory failure, present on admission Acute kidney injury, present on admission, now resolved Plan Narrative: Will continue a 10 day course of IV levofloxacin as described. This will treat both his urinary tract infection as well as pneumonia. Patient has been seen by RT. He is set up for home trilogy. Will continue to monitor the patient closely given his increasing white count and low-grade fever. Went to determine that the patient is not spiking fevers and that his white count is stabilizing. Anticipate discharge home pending follow-up of above.
[2018-04-26] MEDS: OXYCODONE IR 5 MG TABLET 15 MG PO (16:53)
[2018-04-26] MEDS: clonazePAM 0.5 MG TABLET 0.25 MG PO (21:01)
[2018-04-26] MEDS: TRAZODONE 50 MG TABLET PO (21:03)
[2018-04-26] MEDS: GABAPENTIN 300 MG CAPSULE PO (21:06)
[2018-04-26] MEDS: INSULIN GLARGINE 100 UNIT/ML 3ML PEN 30 UNIT SUBCUT (21:07)
[2018-04-27] VITALS (14 sets, daily range): BP systolic 134–157; BP diastolic 55–68; PULSE 75–80; RESP 18–22; TEMP 36–36.6; O2SAT 89–99
--- NOTE | 2018-04-27 08:58 | PM.DS.1 ---
History of Present Illness Date Patient Seen: 04/27/18 Chief complaint: fever, thinks pneumonia Narrative: This is a 67-year-old male who has been paraplegic with a neurogenic bladder for the last 8 years. He experiences pneumonia/urosepsis infections 3-4 times per year. He has a chronic Veloz catheter. Last night he became febrile at 101? with progressive diminished urinary output and increasing confusion. His UTI frequency is actually 8 per year but his hospitalization frequency is 3-4 per year. On arrival to the emergency department his blood pressure is 72/37, with a white blood count of 47 and O2 saturations in the 80s on room air. He has not been coughing. There has been no abdominal pain. He has had chronic left knee pain. His primary care is at the [facility]. After receiving 4-5 L of fluid and then being started on levophed the blood pressures have risen into the 90 systolic and he is now more awake. He has several active pressure ulcers on the sacrum and the backs of both heels. Discharge Providers Date of admission: 04/17/18 18:47 Primary care physician: Mark Cochran MD Consults: 04/17/18 20:04 Consult to Dietitian, Adult Routine Comment: Reason For Exam: assessed at high risk 04/17/18 20:11 Consult to Electric Motor Controls Assembler Routine Comment: 04/17/18 22:21 Consult to Respiratory Therapy Evaluate & Treat Comment: TIESHA on CPA, Use own machine Physician Instructions: Evaluate and treat 04/18/18 03:00 Consult to Wound Care Routine Comment: multiple skin lesions and sacral pressure ulcer [facility] 04/22/18 00:48 Consult to Respiratory Therapy Evaluate & Treat Comment: Physician Instructions: Evaluate and treat Discharge provider: Vanessa Franco MD Discharge Date: 04/27/18 Summary Discharge Diagnosis: Septic shock, present on admission, resolved, secondary to Legionella and strep stenotrophomonas maltophilia pneumonia Acute hypoxemic hypercapnic respiratory failure, present on admission, resolved Pneumonia, present on admission, resolving, secondary to Legionella and stenotrophomonas maltophilia Urinary tract infection, present on admission, resolved, secondary to Klebsiella pneumonia Paraplegia with an associated atonic bladder, and chronic indwelling Veloz catheter Anemia of chronic disease Type 2 diabetes on insulin, chronic Hypertension, chronic Obstructive sleep apnea, present on admission, chronic Morbid obesity Bilateral heel decubitus ulcers, present on admission Sacral decubitus ulcer, present on admission Hospital Course: The patient is a 67-year-old male with paraplegia, atonic bladder, chronic indwelling Veloz catheter who has a known history of recurrent urinary tract infections. The patient presented again with severe sepsis and septic shock. He was admitted to the ICU for pressor management and antibiotics. His cultures grew Legionella and stenotrophomonas . Patient was treated for pneumonia secondary to both. In addition his urine grew Klebsiella pneumonia. He initially was managed with meropenem and levofloxacin. Once the cultures became positive with meropenem was discontinued and the patient continued on treatment with levofloxacin. He had difficulty with oxygenation. He had multiple episodes of hypoxemia, and mucus plugging. Patient ultimately made significant improvement. Respiratory therapy was consulted and a trilogy device was arranged for him as well as a vest for home. The patient continued to have significant improvement in both his white count, respiratory rate, temperature and breathing. He was also evaluated during his hospital stay for his decubitus ulcerations on the sacrum and bilateral heels. His kidney injury improved. His diabetes was well controlled. His hypertension remained well controlled. The patient continued to make significant improvement and was deemed appropriate for discharge home. Patient will be discharged home on oxygen. Arrangements have been made with [facility] for this. Status at Discharge Functional status at discharge: bed bound Overall status at discharge: patient is back to baseline Time Spent with Patient Greater than 30 minutes Exam Vital Signs (past 8 hours): - 04/27/18 06:15 04/27/18 06:24 Temperature 97.3 F L Pulse Rate 75 Respiratory Rate 18 Blood Pressure 134/61 Pulse Oximetry 94 92 Fraction of Inspired Oxygen 30 Oxygen Delivery Method Nasal Cannula,CPAP Oxygen Flow Rate 2 Narrative Exam Narrative: Pleasant gentleman resting comfortably in no obvious distress Lungs: Decreased breath sounds with scattered bibasilar crackles and rhonchi Cardiac exam: Regular rate rhythm normal S1 and S2 with a 2/6 systolic ejection murmur Abdomen: Soft nontender nondistended without hepatosplenomegaly Sacrum: Left buttock with a 5 x 5 cm stage II decubitus ulcer Extremities: No edema, bilateral heel ulcers about quarter size E likely stage II Objective Labs Result Diagrams: 04/26/18 05:20 04/26/18 05:20 Discharge Plan Discharge Plan Patient Disposition: Home Health Service Discharge Med Rec/Prescriptions Prescriptions: New clonazepam 0.5 mg Tablet 0.25 mg PO DAILY PRN (Reason: Anxiety) Qty: 15 RF: 0 clonazepam 0.5 mg Tablet 0.25 mg PO BEDTIME Qty: 15 RF: 0 levofloxacin 250 mg Tablet 750 mg PO DAILY 3 Days RF: 0 Continued ondansetron HCl 4 MG tablet 4 mg PO Q6HP PRN (Reason: unknown) Qty: 0 RF: 0 sennosides [senna] 8.6 MG tablet 2 tab PO QDAYP Qty: 0 RF: 0 insulin glargine [Lantus U-100 Insulin] 100 UNIT/1 ML solution 30 unit SQ HS Qty: 0 RF: 0 insulin aspart U-100 [Novolog U-100 Insulin aspart] 100 UNIT/1 ML solution 12 unit SQ TIDWM Qty: 0 RF: 0 baclofen 10 MG tablet 5 mg PO BID Qty: 0 RF: 0 bisacodyl 10 MG suppository [address] HSP PRN (Reason: Constipation) Qty: 0 RF: 0 docusate sodium [DOK] 250 MG capsule 250 mg PO BID Qty: 0 RF: 0 morphine 30 MG tablet extended release 30 mg PO Q8H Qty: 0 RF: 0 ketoconazole 2 % shampoo 1 applic Topical SEE INSTRUCTIONS PRN (Reason: yeast) Qty: 0 RF: 0 white petrolatum-mineral oil [Eucerin] 120 GM cream 454 gm TP QDAYP PRN (Reason: UNKNOWN) Qty: 0 RF: 0 ferrous gluconate 324 MG tablet 324 mg PO QDAY Qty: 30 RF: 5 cholecalciferol (vitamin D3) [Vitamin D3] 1,000 unit Capsule 3,000 unit PO DAILY RF: 0 guaifenesin [Mucinex] 600 mg Tablet Extended Release 12hr 600 mg PO TID RF: 0 trazodone 50 MG tablet 50 mg PO BEDTIME RF: 0 clonazepam 0.5 MG tablet 0.25 mg PO BEDTIME RF: 0 oxycodone 5 MG tablet 5 - 15 mg PO TIDP PRN (Reason: Pain (Scale Score 7-10)) RF: 0 venlafaxine 37.5 mg capsule,extended release 24hr 1 cap PO DAILY RF: 0 losartan 25 mg tablet 1 tab PO DAILY RF: 0 gabapentin 300 mg capsule 1 cap PO DAILY RF: 0 Follow up/Referrals: Mark Cochran MD [Primary Care Provider] - Provider Discharge Instructions Diet: Low-sodium Diet comment: Usual consistency Activity: Patient is bed-bound will continue activity as tolerated Oxygen: Patient is discharged home on home oxygen at 1-2 L per day Skin/Wound/Dressing Care Skin care: Continue current skin care regimen for decubitus ulceration on the left sac Discharge Data Primary Care Provider: Mark Cochran Attending Provider: Karina Collazo Admit Date/Time: 04/17/18 18:47
--- NOTE | 2018-04-27 09:08 | P.DS_ITS ---
History of Present Illness Date Patient Seen: 04/27/18 Chief complaint: fever, thinks pneumonia Narrative: This is a 67-year-old male who has been paraplegic with a neurogenic bladder for the last 8 years. He experiences pneumonia/urosepsis infections 3-4 times per year. He has a chronic Veloz catheter. Last night he became febrile at 101? with progressive diminished urinary output and increasing confusion. His UTI frequency is actually 8 per year but his hospitalization frequency is 3- 4 per year. On arrival to the emergency department his blood pressure is 72/37, with a white blood count of 47 and O2 saturations in the 80s on room air. He has not been coughing. There has been no abdominal pain. He has had chronic left knee pain. His primary care is at the [place] [facility]. After receiving 4-5 L of fluid and then being started on levophed the blood pressures have risen into the 90 systolic and he is now more awake. He has several active pressure ulcers on the sacrum and the backs of both heels. Discharge Providers Date of admission: 04/17/18 18:47 Primary care physician: Mark Cochran MD Consults: 04/17/18 20:04 Consult to Dietitian, Adult Routine Comment: Reason For Exam: assessed at high risk 04/17/18 20:11 Consult to Farmworker [employer] Routine Comment: 04/17/18 22:21 Consult to Respiratory Therapy Evaluate & Treat Comment: TIESHA on CPA, Use own machine Physician Instructions: Evaluate and treat 04/18/18 03:00 Consult to Wound Care Routine Comment: multiple skin lesions and sacral pressure ulcer [facility] 04/22/18 00:48 Consult to Respiratory Therapy Evaluate & Treat Comment: Physician Instructions: Evaluate and treat Discharge provider: Vanessa Franco MD Discharge Date: 04/27/18 Summary Discharge Diagnosis: Septic shock, present on admission, resolved, secondary to Legionella and strep stenotrophomonas maltophilia pneumonia Acute hypoxemic hypercapnic respiratory failure, present on admission, resolved Pneumonia, present on admission, resolving, secondary to Legionella and stenotro phomonas maltophilia Urinary tract infection, present on admission, resolved, secondary to Klebsiella pneumonia Paraplegia with an associated atonic bladder, and chronic indwelling Veloz catheter Anemia of chronic disease Type 2 diabetes on insulin, chronic Hypertension, chronic Obstructive sleep apnea, present on admission, chronic Morbid obesity Bilateral heel decubitus ulcers, present on admission Sacral decubitus ulcer, present on admission Hospital Course: The patient is a 67-year-old male with paraplegia, atonic bladder, chronic indwelling Veloz catheter who has a known history of recurrent urinary tract infections. The patient presented again with severe sepsis and septic shock. He was admitted to the ICU for pressor management and a ntibiotics. His cultures grew Legionella and stenotrophomonas . Patient was treated for pneumonia secondary to both. In addition his urine grew Klebsiella pneumonia. He initially was managed with meropenem and levofloxacin. Once the cultures became positive with meropenem was discontinued and the patient continued on treatment with levofloxacin. He had difficulty with oxygenation. He had multiple episodes of hypoxemia, and mucus plugging. Patient ultimately made significant improvement. Respiratory therapy was consulted and a trilogy device was arranged for him as well as a vest for home. The patient continued to have significant improvement in both his white count, respiratory rate, temperature and breathing. He was also evaluated during his hospital stay for his decubitus ulcerations on the sacrum and bilateral heels. His kidney injury improved. His diabetes was well controlled. His hypertension remained well controlled. The patient continued to make significant improvement and was deemed appropriate for discharge home. Patient will be discharged home on oxygen. Arrangements have been made with [facility] [place] for this. Status at Discharge Functional status at discharge: bed bound Overall status at discharge: patient is back to baseline Time Spent with Patient Greater than 30 minutes Exam Vital Signs (past 8 hours): - 04/27/18 06:15 04/27/18 06:24 Temperature 97.3 F L Pulse Rate 75 Respiratory Rate 18 Blood Pressure 134/61 Pulse Oximetry 94 92 Fraction of Inspired Oxygen 30 Oxygen Delivery Method Nasal Cannula,CPAP Oxygen Flow Rate 2 Narrative Exam Narrative: Pleasant gentleman resting comfortably in no obvious distress Lungs: Decreased breath sounds with scattered bibasilar crackles and rhonchi Cardiac exam: Regular rate rhythm normal S1 and S2 with a 2/6 systolic ejection murmur Abdomen: Soft nontender nondistended without hepatosplenomegaly Sacrum: Left buttock with a 5 x 5 cm stage II decubitus ulcer Extremities: No edema, bilateral heel ulcers about quarter size E likely stage II Objective Labs Result Diagrams: 04/26/18 05:20 04/26/18 05:20 Discharge Plan Discharge Plan Patient Disposition: Home Health Service Discharge Med Rec/Prescriptions Prescriptions: New clonazepam 0.5 mg Tablet 0.25 mg PO DAILY PRN (Reason: Anxiety) Qty: 15 RF: 0 clonazepam 0.5 mg Tablet 0.25 mg PO BEDTIME Qty: 15 RF: 0 levofloxacin 250 mg Tablet 750 mg PO DAILY 3 Days RF: 0 Continued ondansetron HCl 4 MG tablet 4 mg PO Q6HP PRN (Reason: unknown) Qty: 0 RF: 0 sennosides [senna] 8.6 MG tablet 2 tab PO QDAYP Qty: 0 RF: 0 insulin glargine [Lantus U-100 Insulin] 100 UNIT/1 ML solution 30 unit SQ HS Qty: 0 RF: 0 insulin aspart U-100 [Novolog U-100 Insulin aspart] 100 UNIT/1 ML solution 12 unit SQ TIDWM Qty: 0 RF: 0 baclofen 10 MG tablet 5 mg PO BID Qty: 0 RF: 0 bisacodyl 10 MG suppository 10 mg AR HSP PRN (Reason: Constipation) Qty: 0 RF: 0 docusate sodium [DOK] 250 MG capsule 250 mg PO BID Qty: 0 RF: 0 morphine 30 MG tablet extended release 30 mg PO Q8H Qty: 0 RF: 0 ketoconazole 2 % shampoo 1 applic Topical SEE INSTRUCTIONS PRN (Reason: yeast) Qty: 0 RF: 0 white petrolatum-mineral oil [Eucerin] 120 GM cream 454 gm TP QDAYP PRN (Reason: UNKNOWN) Qty: 0 RF: 0 ferrous gluconate 324 MG tablet 324 mg PO QDAY Qty: 30 RF: 5 cholecalciferol (vitamin D3) [Vitamin D3] 1,000 unit Capsule 3,000 unit PO DAILY RF: 0 guaifenesin [Mucinex] 600 mg Tablet Extended Release 12hr 600 mg PO TID RF: 0 trazodone 50 MG tablet 50 mg PO BEDTIME RF: 0 clonazepam 0.5 MG tablet 0.25 mg PO BEDTIME RF: 0 oxycodone 5 MG tablet 5 - 15 mg PO TIDP PRN (Reason: Pain (Scale Score 7-10)) RF: 0 venlafaxine 37.5 mg capsule,extended release 24hr 1 cap PO DAILY RF: 0 losartan 25 mg tablet 1 tab PO DAILY RF: 0 gabapentin 300 mg capsule 1 cap PO DAILY RF: 0 Follow up/Referrals: Mark Cochran MD [Primary Care Provider] - Provider Discharge Instructions Diet: Low-sodium Diet comment: Usual consistency Activity: Patient is bed-bound will continue activity as tolerated Oxygen: Patient is discharged home on home oxygen at 1-2 L per day Skin/Wound/Dressing Care Skin care: Continue current skin care regimen for decubitus ulceration on the left sac Discharge Data Primary Care Provider: Mark Cochran Attending Provider: Karina Collazo Admit Date/Time: 04/17/18 18:47
[2018-04-27 09:36] LABS: Hematocrit 28.4 % (41-53); Hemoglobin 8.3 g/dL (13.5-17.5); Mean Corpuscular HGB Conc 29.1 % (30-36); Mean Corpuscular Hemoglobin 28.4 PG (26-34); Mean Corpuscular Volume 97.3 fL (80-100); Platelet Count 307 X10^3/uL (150-400); Red Blood Cell Count 2.92 X10^6/uL (4.5-5.9); Red Cell Distribution Width 17.9 % (11.6-14.8)
[2018-04-27 09:38] LABS: Add Manual Diff / Slide Review YES
[2018-04-27 09:41] LABS: BUN Creatinine Ratio 21.3 (6-22); Blood Urea Nitrogen 17 mg/dL (9-20); Calcium 8.5 mg/dL (8.4-10.2); Chloride 89 mmol/L (98-107); Estimated Glomerular Filt Rate > 60.0 mL/min (>60); Glucose 77 mg/dL (80-110); HEMOLYSIS < 15 (0-50); Potassium 4.7 mmol/L (3.4-5.1); Sodium 137 mmol/L (137-145)
[2018-04-27 09:46] LABS: Neutrophils Absolute Manual 11850 /uL (3000-5900); RBC Morphology Normal Morphology; Total Cells Counted 100
[2018-04-27 09:49] LABS: Carbon Dioxide 42 mmol/L (22-32)
[2018-04-27] MEDS: ENOXAPARIN 40 MG/0.4 ML SYRINGE SUBCUT (09:57)
[2018-04-27] MEDS: CHOLECALCIFEROL (VITAMIN D3) 1,000 UNIT TABLET 3000 UNIT PO (09:58)
[2018-04-27] MEDS: levoFLOXacin 250 MG TABLET 750 MG PO (09:58)
[2018-04-27] MEDS: IODOSORB 1 EACH TOP (09:58)
[2018-04-27] MEDS: LOSARTAN 25 MG TABLET PO (09:59)
[2018-04-27] MEDS: guaiFENesin ER 600 MG TAB 1200 MG PO ×2 (09:59→20:49)
[2018-04-27] MEDS: VENLAFAXINE ER 37.5 MG CAP PO (09:59)
[2018-04-27] MEDS: BACLOFEN 10 MG TABLET 5 MG PO ×2 (10:03→20:50)
[2018-04-27] MEDS: CALMOSEPTINE 1 EACH TOP (10:04)
[2018-04-27] MEDS: DOCUSATE 100 MG CAPSULE 200 MG PO ×2 (10:04→20:49)
[2018-04-27] MEDS: NYSTATIN SUSP 500,000 UNIT/5 ML UDC 500000 UNIT PO ×3 (10:05→20:48)
[2018-04-27] MEDS: SODIUM CHLORIDE 0.9% FLUSH 10 ML IV (10:05)
[2018-04-27] MEDS: MORPHINE ER 30 MG TABLET PO ×2 (10:06→20:48)
--- NOTE | 2018-04-27 10:55 | CM.DPC ---
DCP Cont: Patient is to be discharged home today. He will be getting some home health. Dr. Franco already signed face to face including nursing, bath aide, O.T, P.T. Called Elena at [facility] to find out turn around time. She stated that they can be there within 24-48 hours. Faxed over orders, discharge summary and face to face to [facility]. Spoke to Monique at [facility]. Updated her that patient is being discharged today. She will make sure that they go to the home today and get patient set up for trilogy. P: Patient is to be discharged home today with home health. Shawna Rand RN/Restaurant Cashier
--- NOTE | 2018-04-27 10:57 | PC.NURSE ---
Addendum entered by Cha Hdz R.N. 04/27/18 14:55: DISCHARGE HAS BEEN CANCELLED Original Note: preparing for d/c to home with home health to follow ( rn/pt/ot/foil cutter) taking po well , bowel program qod per , pain well controlled on current regimine and very little break thru pain rx given-
[2018-04-27] MEDS: LEVALBUTEROL 1.25 MG/0.5 ML NEB 0.63 MG INH (15:19)
[2018-04-27] MEDS: INSULIN ASPART 100 UNIT/ML INSULN PEN 12 UNIT SUBCUT (17:01)
[2018-04-27] MEDS: clonazePAM 0.5 MG TABLET 0.25 MG PO (20:48)
[2018-04-27] MEDS: TRAZODONE 50 MG TABLET PO (20:49)
[2018-04-27] MEDS: GABAPENTIN 300 MG CAPSULE PO (20:49)
[2018-04-27] MEDS: INSULIN GLARGINE 100 UNIT/ML 3ML PEN 30 UNIT SUBCUT (20:56)
[2018-04-28] VITALS: BP 130/55; PULSE 82; RESP 20; TEMP 36.4; O2SAT 100
[2018-04-28 00:10] VITALS: O2SAT 94
[2018-04-28 02:09] VITALS: O2SAT 93
[2018-04-28 06:17] VITALS: O2SAT 98
[2018-04-28 08:52] VITALS: BP 131/57; PULSE 83; RESP 18; TEMP 36.6; O2SAT 100
[2018-04-28 09:07] VITALS: O2SAT 100
[2018-04-28] MEDS: MORPHINE ER 30 MG TABLET PO (09:40)
[2018-04-28] MEDS: levoFLOXacin 250 MG TABLET 750 MG PO (09:41)
[2018-04-28] MEDS: CHOLECALCIFEROL (VITAMIN D3) 1,000 UNIT TABLET 3000 UNIT PO (09:41)
[2018-04-28] MEDS: BACLOFEN 10 MG TABLET 5 MG PO (09:41)
[2018-04-28] MEDS: ENOXAPARIN 40 MG/0.4 ML SYRINGE SUBCUT (09:41)
[2018-04-28] MEDS: DOCUSATE 100 MG CAPSULE 200 MG PO (09:42)
[2018-04-28] MEDS: VENLAFAXINE ER 37.5 MG CAP PO (09:42)
[2018-04-28] MEDS: guaiFENesin ER 600 MG TAB 1200 MG PO (09:42)
[2018-04-28] MEDS: LOSARTAN 25 MG TABLET PO (09:42)
[2018-04-28] MEDS: CALMOSEPTINE 1 EACH TOP (09:47)
--- NOTE | 2018-04-28 10:40 | P.PN_ITS ---
Subjective Date Patient Seen: 04/27/18 Interval history: Patient is seen and examined today. He has no further fever. Overall he feels improved. He continues to have some minimal cough. Patient is anxious to go home. Exam Vital Signs (past 8 hours): - 04/28/18 06:17 04/28/18 08:52 04/28/18 09:07 Temperature 98 F Pulse Rate 83 Respiratory Rate 18 Blood Pressure 131/57 L Pulse Oximetry 98 100 100 Fraction of Inspired Oxygen 30 Oxygen Delivery Method Nasal Cannula Oxygen Flow Rate 1 Narrative Exam Narrative: Pleasant gentleman ill-appearing resting comfortably Lungs: Decreased breath sounds, coarse breath sounds at the bases with occas ional scattered rhonchi Cardiac exam: Regular rate rhythm normal S1 and S2, 2/6 systolic ejection m urmur Abdomen: Soft nontender nondistended without hepatosplenomegaly Extremities: No edema Skin: Very dry skin Objective Labs Result Diagrams: 04/27/18 09:20 04/27/18 09:20 Assessment & Plan Assessment Narrative: Acute hypoxic respiratory failure, present on admission Septic shock, present on admission, resolved Pneumonia, present on admission, secondary to Legionella and stenotrophomonas maltophilia, resolving Urinary tract infection, present on admission Atonic bladder, with chronic Vleoz present Paraplegia, chronic Type 2 diabetes, chronic Hypertension, chronic Obstructive sleep apnea, chronic Morbid obesity Bilateral heel decubitus ulcers, present on admission Sacral decubitus ulcer, present on admission Plan Narrative: Anticipated discharge home tomorrow. Will continue current antibiotic regimen. Await insurance approval for home oxygen. Will obtain n octurnal pulse oximetry continuous while on CPAP to qualify.
--- NOTE | 2018-04-28 11:05 | PC.NURSE ---
Changed heel dressings per MD's orders. Also cleansed beau area and coccyx and applied cream as ordered.
--- NOTE | 2018-04-28 16:21 | CM.DPC ---
Addendum entered by Lary Shaffer LPN 04/29/18 08:39: Spoke this morning by phone with Elena. Faxed all to the [phone] # per her request. Original Note: DCP: continued: pt did go home as planned today with and the Trilogy all set up. Reviewed EMR and followed up now with [facility] to make sure they knew pt did d/c today instead of yesterday as planned. Elena stated she was aware of the referral but had received no faxed information. Due to lateness of hour will have to fax all to her tomorrow.
== END 2018-04-28 12:34 | disposition home health service (06) | DRG 871 ==
LOC: ED 17:52 → ICU 18:48 → AC 04-21 19:31 → ICU 04-23 14:15
PROVIDERS: Internal Medicine; Nurse Practitioner Gerontology; Admitting Provider Family Medicine; Emergency Provider Emergency Medicine; PCP Family Medicine; Visit Provider Family Medicine
DX: A41.4 Sepsis due to anaerobes (principal); A48.1 Legionnaires' disease; R65.21 Severe sepsis with septic shock; J15.6 Pneumonia due to other Gram-negative bacteria; J96.22 Acute and chronic respiratory failure with hypercapnia; J96.21 Acute and chronic respiratory failure with hypoxia; T83.511A Infection and inflammatory reaction due to indwelling urethral catheter, initial encounter; N17.9 Acute kidney failure, unspecified; G82.20 Paraplegia, unspecified; N39.0 Urinary tract infection, site not specified; Z68.41 Body mass index [BMI] 40.0-44.9, adult; N31.9 Neuromuscular dysfunction of bladder, unspecified; E11.3599 Type 2 diabetes mellitus with proliferative diabetic retinopathy without macular edema, unspecified eye; L89.159 Pressure ulcer of sacral region, unspecified stage; L89.619 Pressure ulcer of right heel, unspecified stage; I10 Essential (primary) hypertension; G47.33 Obstructive sleep apnea (adult) (pediatric); D63.8 Anemia in other chronic diseases classified elsewhere; B96.89 Other specified bacterial agents as the cause of diseases classified elsewhere; E66.01 Morbid (severe) obesity due to excess calories
CPT/HCPCS: 36415; 36430; 36573; 36591; 36592; 36600; 71045; 73560; 80048; 80053; 81001; 82805; 82962; 83605; 83690; 83735; 84145; 85014; 85018; 85025; 85610; 85730; 86060; 86850; 86900; 86901; 87040; 87070; 87077; 87086; 87186; 87205; 87400; 87449; 87633; 87797; 93005; 94618; 94640; 94660; 94667; 94668; 94760; 94762; 96365; 96366; 96368; 99285; 99291; 99292; P9016; J1170; J1650; J1940; J1956; J2185; J2543; J7614

== ENCOUNTER 2018-05-01 18:38 | Emergency (ER) | payer MEDICARE, OTHER, SELFPAY ==
[2018-04-17 20:11] VITALS: BMI 34.4
[2018-04-24 21:59] VITALS: PULSE 79; RESP 16; O2SAT 99
[2018-05-01] VITALS (9 sets, daily range): BP systolic 95–163; BP diastolic 45–90; PULSE 50–96; RESP 10–28; TEMP 36.2; O2SAT 71–100; BMI 32.8
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
[2018-05-01 19:21] LABS: Add Manual Diff / Slide Review NO; Basophils Absolute Auto 0 /uL (0-100); Basophils Percent Auto 0.2 % (0-2); Eosinophils Absolute Auto 0 /uL (0-450); Hematocrit 26.8 % (41-53); Hemoglobin 8.3 g/dL (13.5-17.5); Lymphocytes Absolute Auto 600 /uL (1100-4500); Mean Corpuscular HGB Conc 30.8 % (30-36); Mean Corpuscular Hemoglobin 28.4 PG (26-34); Monocytes Absolute Auto 500 /uL (0-900); Monocytes Percent Auto 2.5 % (3-14); Neutrophils Absolute Auto 18900 /uL (1500-7000); Neutrophils Percent Auto 94.3 % (50-75); Platelet Count 262 X10^3/uL (150-400); Red Blood Cell Count 2.91 X10^6/uL (4.5-5.9); Red Cell Distribution Width 16.6 % (11.6-14.8)
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
[2018-05-01] MEDS: SODIUM CHLORIDE 0.9% 1,000 ML 250 ML IV (19:25)
[2018-05-01 19:30] LABS: INR 1.2 (0.9-1.3); Prothrombin Time 13.9 SECONDS (10.1-12.7)
[2018-05-01 19:33] LABS: Lactate (Lactic Acid) 0.7 mmol/L (0.7-2.1); PTT Partial Thromboplastin Tim 33 SECONDS (26.4-36.2)
[2018-05-01 19:34] LABS: Alanine Aminotransferase 25 IU/L (21-72); Albumin 3.3 g/dL (3.5-5.0); Albumin Globulin Ratio 0.7 (1.0-2.8); Alkaline Phosphatase 133 U/L (38-126); Aspartate Aminotransferase 25 IU/L (17-59); BUN Creatinine Ratio 22.7 (6-22); Bilirubin Total 0.5 mg/dL (0.2-1.3); Blood Urea Nitrogen 25 mg/dL (9-20); Calcium 8.6 mg/dL (8.4-10.2); Chloride 85 mmol/L (98-107); Estimated Glomerular Filt Rate > 60.0 mL/min (>60); Globulin 4.6 g/dL (1.7-4.1); Glucose 242 mg/dL (80-110); HEMOLYSIS < 15 (0-50); Sodium 132 mmol/L (137-145); Total Protein 7.9 g/dL (6.3-8.2)
[2018-05-01 19:46] LABS: Carbon Dioxide 38 mmol/L (22-32); Troponin I < 0.012 ng/mL (0.01-0.034)
[2018-05-01 19:47] LABS: Potassium 5.6 mmol/L (3.4-5.1)
[2018-05-01 19:51] LABS: Prolactin 11.4 ng/mL (3.7-17.9)
[2018-05-01] MEDS: SODIUM CHLORIDE 0.9% 1,000 ML 1000 ML IV (20:25)
[2018-05-01 20:52] LABS: Fractionated Inspired Oxygen 40; HCO3 ABG 43 mmol/L (22-26); Oxygen Saturation ABG 99 % (95-100); PCO2 ABG 119.1 mmHg (35-45); PO2 ABG 164 mmHg (80-100); TCO2 ABG 46 mmol/L (21-31); pH ABG 7.16 (7.35-7.45)
[2018-05-01] MEDS: MEROPENEM 2 GM in SODIUM CHLORIDE 0.9% 100 ML 200 ML IV (21:08)
[2018-05-01 21:53] LABS: Appearance Urine UA CLEAR; Bilirubin Urine UA NEGATIVE (NEGATIVE); Color Urine UA YELLOW; Glucose Urine UA NEGATIVE (Negative); Ketones Urine UA NEGATIVE (NEGATIVE); Leukocyte Esterase Urine UA NEGATIVE (NEGATIVE); Nitrite Urine UA NEGATIVE (Negative); Occult Blood Urine UA 1+ (Negative); Protein Urine UA TRACE (Negative); Specific Gravity Urine UA >=1.030 (1.000-1.035); Urobilinogen Urine UA 0.2 E.U./dL (0.2)
[2018-05-01 21:54] LABS: PCO2 ABG 101.4 mmHg (35-45); pH ABG 7.19 (7.35-7.45)
[2018-05-01 21:55] LABS: Fractionated Inspired Oxygen 50; HCO3 ABG 38 mmol/L (22-26); Oxygen Saturation ABG 99 % (95-100); PO2 ABG 159 mmHg (80-100); TCO2 ABG 41 mmol/L (21-31)
--- NOTE | 2018-05-01 22:01 | DI.RAD.S_ITS ---
PROCEDURE: XR CHEST 1V INDICATIONS: post intubation TECHNIQUE: One view of the chest was acquired. COMPARISON: [facility], CR, XR CHEST 1V, 05/01/2018, 19:22. FINDINGS: Surgical changes and devices: There is an endotracheal tube with the tip approximately 4.5 cm from the derik, with evaluation limited by posterior fixation hardware. A nasogastric tube is demonstrated extending into the region of the gastroesophageal junction. The side port is demonstrated in the distal esophagus. Lungs and pleura: There are left basilar opacities consistent with atelectasis or consolidation. Mild pulmonary vascular prominence is suggestive of mild edema. Mediastinum: Mediastinal contours appear unchanged. Heart size is normal. Bones and chest wall: No suspicious bony lesions. Overlying soft tissues appear unremarkable. IMPRESSION: 1. Nasogastric tube extends to the region of the gastroesophageal junction. Recommend further advancement into the stomach. 2. Left basilar atelectasis or consolidation and mild pulmonary edema. Dictated by: Jake Romero M.D. on 05/02/2018 at 13:20 Approved by: Jake Romero M.D. on 05/02/2018 at 13:21
[2018-05-01] MEDS: SODIUM CHLORIDE 0.9% 1,000 ML 150 ML IV (22:27)
[2018-05-01] MEDS: ETOMIDATE 2 MG/ML VIAL 33.9 MG IV (22:29)
[2018-05-01] MEDS: SUCCINYLCHOLINE 200 MG/10 ML VIAL 100 MG IV (22:30)
[2018-05-01] MEDS: fentaNYL 100 MCG/2 ML INJ 40 MCG IV ×2 (22:48→23:22)
[2018-05-01 22:53] LABS: Amorphous Sediment Urine 4+; Granular Casts Urine 1-5/LPF; Hyaline Casts Urine 0-1/LPF; RBC Urine 0-1/HPF (0-5/HPF); WBC Urine 0-1/HPF (0-5/HPF)
[2018-05-01] MEDS: fentaNYL 1,000 MCG in DEXTROSE 5% IN WATER 250 ML 21.35 ML IV (22:59)
[2018-05-01] MEDS: MIDAZOLAM 2 MG/2 ML VIAL 5.64725 MG IV (23:10)
[2018-05-01] MEDS: MIDAZOLAM 50 MG in DEXTROSE 5% IN WATER 250 ML 11.75 ML IV (23:44)
[2018-05-01 23:47] LABS: Fractionated Inspired Oxygen 40; HCO3 ABG 35 mmol/L (22-26); Oxygen Saturation ABG 93 % (95-100); PCO2 ABG 49.1 mmHg (35-45); PO2 ABG 66 mmHg (80-100); TCO2 ABG 36 mmol/L (21-31); pH ABG 7.46 (7.35-7.45)
[2018-05-01] MEDS: MIDAZOLAM 5 MG/ML VIAL IV (23:55)
[2018-05-02 00:02] VITALS: BP 112/80; PULSE 62; RESP 22; O2SAT 100
[2018-05-02 00:30] VITALS: BP 115/69; PULSE 72; RESP 22; O2SAT 100
[2018-05-02 00:48] VITALS: BP 109/56; PULSE 76; RESP 22; O2SAT 100
[2018-05-02 01:08] LABS: Bacteria Urine None Seen
[2018-05-02 01:21] VITALS: BP 99/54; PULSE 75; RESP 22; O2SAT 100
--- NOTE | 2018-05-02 02:05 | PC.NURSE ---
Midazolam and fentanly drips titrated up for pt comfort. Pt was grimacing and moving arms restlessly in bed. Pt now resting more comfortably, family at bedside.
[2018-05-02] MEDS: fentaNYL 1,000 MCG in DEXTROSE 5% IN WATER 250 ML 95 ML IV (02:37)
[2018-05-02] MEDS: MIDAZOLAM 50 MG in DEXTROSE 5% IN WATER 250 ML 65 ML IV (03:29)
[2018-05-02 03:33] VITALS: BP 105/53; PULSE 78; RESP 22; O2SAT 100
--- NOTE | 2018-05-02 04:17 | PC.NURSE ---
Report called to Gracia NYE at [facility].
== END 2018-05-02 04:00 ==
PROVIDERS: Emergency Provider Emergency Medicine; PCP Family Medicine
DX: J96.02 Acute respiratory failure with hypercapnia (principal); J18.9 Pneumonia, unspecified organism; J05.11 Acute epiglottitis with obstruction
CPT/HCPCS: 31500; 36415; 36591; 36600; 51701; 51705; 71045; 80053; 81001; 82805; 83605; 84146; 84484; 85025; 85610; 85730; 87040; 87070; 87086; 87205; 93005; 94002; 94660; 94770; 94799; 96361; 96365; 96366; 96375; 99152; 99285; 99291; 99292; J0330; J2185; J2250; J3010